=== PATIENT | male | born 1995 | race Two or more races ===

== ENCOUNTER → 2024-10-15 | Outpatient (BNVA) | payer MEDICAID, SELFPAY | END | disposition home or self-care (01) | PROVIDERS: PCP Nurse Practitioner Primary Care; Referring Provider Nurse Practitioner Primary Care; Visit Provider Nurse Practitioner Primary Care | DX: Z71.2 Person consulting for explanation of examination or test findings (principal); Z91.199 Patient's noncompliance with other medical treatment and regimen due to unspecified reason; Z79.4 Long term (current) use of insulin; E11.65 Type 2 diabetes mellitus with hyperglycemia | CPT/HCPCS: 99214 ==

== ENCOUNTER 2024-10-20 16:00 | Inpatient (IN) | payer MEDICAID, SELFPAY ==
--- NOTE | 2024-10-20 16:18 | EKG_ITS ---
[facility] Test Date: 2024-10-20 Pat Name: FIDEL WOLF Department: Room: - Gender: Male [employer]: : [id number] Requested By: Linn Luevano ([facility]) Krissy Order Number: [id number] Reading MD: Linn Luevano ([facility]) Krissy Measurements Intervals [place] Rate: 96 P: 51 CO: 214 QRS: -18 QRSD: 84 T: 48 QT: 401 QTc: 507 Interpretive Statements SINUS RHYTHM WITH FIRST DEGREE AV BLOCK SEPTAL MYOCARDIAL INFARCTION , OF INDETERMINATE AGE [40+ ms Q WAVE IN V1/V2] Compared to ECG 05/17/2023 11:00:03 First degree AV block now present Myocardial infarct finding now present /store/S0/[id number]/ecg/[id number].pdf
[2024-10-20 16:19] VITALS: PULSE 110; RESP 18; O2SAT 99; BMI 29.8
[2024-10-20 16:29] VITALS: BP 166/102; RESP 30; TEMP 36.8; O2SAT 98
[2024-10-20] MEDS: ONDANSETRON INJ 2 MG/ML INJ 2 ML 4 MG IV (16:42)
--- NOTE | 2024-10-20 16:42 | XR_ITS ---
Examination: PA lateral chest 2 views TECHNIQUE: Upright PA lateral chest 2 views Exam date and time: October 20, 2024 1658 hours Comparison May 15, 2023 INDICATIONS: Chest pain today. FINDINGS: Mild enlargement left ventricle Median sternotomy wires No pneumonia or pulmonary edema IMPRESSION: No active disease
[2024-10-20 17:03] LABS: Basophils % (Auto) 0 % (0-2.5); Eosinophils % (Auto) 0 % (0-10); Hematocrit 43.9 % (41.0-53.0); Immature Granulocytes % (Auto) 1 % (0-0); Lymphocytes # (Auto) 1.4 Thou/mm3 (1.0-4.8); Lymphocytes % (Auto) 10 % (10-50); Mean Corpuscular HGB Conc 34.2 g/dl (31.0-37.0); Mean Corpuscular Hemoglobin 24.8 pg (25.0-35.0); Mean Corpuscular Volume 73 fL (80-100); Monocytes # (Auto) 0.7 Thou/mm3 (0.0-0.8); Monocytes % (Auto) 5 % (0-12); Neutrophils # (Auto) 11.7 Thou/mm3 (1.8-7.7); Neutrophils % (Auto) 84 % (37-80); Nucleated Red Blood Cell % 0 /100 WBC (0); Platelet Count 368 Thou/mm3 (140-440); RDW Standard Deviation 37.4 fL (35.1-43.9); Red Blood Count 6.05 Miln/mm3 (4.50-5.90); White Blood Count 13.9 Thou/mm3 (3.8-10.6)
[2024-10-20 17:05] LABS: Beta Hydroxybutyrate 4.4 mmol/L (<0.6)
[2024-10-20] MEDS: SODIUM CHLORIDE 0.9% 1000 ML 1,000 ML 999 ML IV (17:11)
[2024-10-20 17:14] LABS: Prothrombin Time 10.6 Seconds (9.0-12.2)
[2024-10-20 17:32] LABS: Base Excess, Venous -4 (-3-3); O2 Saturation, Venous 75 % (96-97); PCO2, Venous 32 mmHg (36-56); PO2, Venous 41 mmHg (15-58); pH, Venous 7.39 (7.33-7.66)
--- NOTE | 2024-10-20 17:45 | EDNOTE_ITS ---
<Statement entered by Mehreen Deshpande MD - 10/20/24 21:12> As co-signing physician, I was present and available for consult prn. I concur with the plan and care as documented by the midlevel provider. ED Abdominal Pain RME/HPI General Chief Complaint: Abdominal Pain Stated complaint: ABD PAIN Time seen by provider: 10/20/24 16:18 Arrival date/time: 10/20/24 16:00 This is a 29-year-old male with a extensive medical history to include a heart transplant secondary to hypertrophic cardiomyopathy in [facility], (currently on antirejection medications), noncompliant [id number], dyslipidemia, coronary artery disease on Plavix, hypertension, presents to the emergency department complaint of nausea and vomiting that began yesterday. Also reports upper epigastric abdominal pain worsens with vomiting. Also reported some mild chest pain during his episode of vomiting. Admits to recently has stopped using his regular insulin and long-acting, was only using oral hypoglycemics to control his diabetes. Reports his A1c is high at approximately 12%. Denies fever, chills, no urinary symptoms. Source: patient Related Data Home Medications ?Medication ?Instructions ?Recorded ?Confirmed clopidogrel 75 mg tablet mg PO QDAY 01/20/24 10/15/24 fenofibrate nanocrystallized 145 mg PO 01/20/24 10/15/24 mg tablet pantoprazole 40 mg tablet,delayed mg PO QDAY 01/20/24 10/15/24 release metformin 500 mg tablet 1,000 mg PO BID 08/13/24 10/15/24 amlodipine 5 mg tablet 5 mg PO QDAY 10/15/24 10/15/24 empagliflozin 25 mg tablet 25 mg PO QAM 10/15/24 10/15/24 (Jardiance) escitalopram oxalate 10 mg tablet 10 mg PO QDAY 10/15/24 10/15/24 insulin glargine 100 unit/mL (3 45 unit subcut BID 10/15/24 mL) subcutaneous pen sirolimus 0.5 mg tablet 1 mg PO 10/15/24 10/15/24 tacrolimus 0.5 mg capsule, 2.5 mg PO QDAY 10/15/24 10/15/24 immediate-release Previous Rx's ?Medication ?Instructions ?Recorded aspirin 81 mg tablet,delayed 81 mg PO QDAY #90 tabs 01/20/24 release cetirizine 10 mg capsule (All Day 10 mg PO QDAY #90 caps 01/20/24 Allergy (cetirizine)) famotidine 20 mg tablet 20 mg PO QDAY #90 tabs 01/20/24 insulin regular human 100 unit/mL 1 sliding scale dose subcut 08/13/24 (3 mL) subcutaneous pen USEASDIRECTD #15 mL pen needle, diabetic 31 gauge x #1,200 ea 08/13/24/ (Comfort EZ Pen [place]) flash glucose scanning reader #1 ea 08/20/24 (FreeStyle Ni 2 [place]) flash glucose sensor (FreeStyle #1 ea 08/20/24 Ni 2 Sensor kit) enalapril maleate 20 mg tablet 20 mg PO BID #180 tabs 10/15/24 fluconazole 200 mg tablet 200 mg PO QDAY #90 tabs 10/15/24 rosuvastatin 10 mg tablet 10 mg PO QDAY #90 tabs 10/15/24 semaglutide 2 mg/dose (8 mg/3 mL) 2 mg (0.75 mL) subcut QWEEK #3 mL 10/15/24 subcutaneous pen injector (Ozempic) Allergies Allergy/AdvReac Type Severity Reaction Status Date / Time No Known Allergies Allergy Verified 10/15/24 11:20 Review of Systems Review of Systems Systems Reviewed: All systems reviewed, normal except as documented Narrative Review of Systems: Gen: No fever, no chills, no weight loss EYES: No discharge, no visual changes, no pain HEENT: No ear pain, no congestion, no sore throat PULM: No shortness of breath, no cough, no congestion CV: No chest pain, no dyspnea on exertion, no palpitations GI: + nausea, + vomiting, no diarrhea, +abd pain, no constipation : No frequency, no urgency,? no dysuria Musc/skel: No joint pain, no back pain Skin: No rash? ED Exam Narrative Physical exam: General: Chronically ill-appearing 29-year-old Sittiing in Exam table in no acute distress, answering questions appropriately HENT: normocephalic, atraumatic, EOMI, PERRLA, moist mucous membranes Chest: chest wall is nontender Cardiac: regular rate and rhythm, normal S1 and S2, no murmurs, rubs, or gallops, capillary refill ?2 seconds Pulmonary: clear to auscultation bilaterally, no wheezing, crackles, or rhonchi Abdominal: active bowel sounds, soft, nontender, nondistended Neuro: A&OX3, CN II-XII intact, sensation grossly intact bilaterally in UE and LE. Skin: no rashes, no ecchymosis Ext: no lower extremity edema Course Quality Measures none Orders Category Date Time Status Bedside Blood Glucose ACHS Care 10/20/24 19:30 Active COVID-19 Screening Questionnaire NOW Care 10/20/24 18:17 Active Decision to Admit X1 Care 10/20/24 18:16 Completed EKG (ED ONLY) *Do not use* NOW Care 10/20/24 16:18 Completed Insert IV NOW Care 10/20/24 16:42 Active NPO STAT Care 10/20/24 16:18 Active EKG (ED Only) Stat Exams 10/20/24 16:18 Draft XR chest 2V Stat Exams 10/20/24 16:42 Completed BMP [Basic Metabolic Panel] Stat Lab 10/20/24 18:58 Completed Beta Hydroxybutyrate Stat Lab 10/20/24 16:39 Completed CBC Stat Lab 10/20/24 16:39 Completed Comprehensive Metabolic Panel Stat Lab 10/20/24 16:39 Completed Lipase Stat Lab 10/20/24 16:39 Completed Magnesium Stat Lab 10/20/24 16:39 Completed Prothrombin Time with INR Stat Lab 10/20/24 16:39 Completed Troponin I Stat Lab 10/20/24 16:39 Completed Urinalysis Stat Lab 10/20/24 16:18 Ordered Venous Blood Gas Stat Lab 10/20/24 17:21 Completed Dextrose 50% Syr [D50w Syringe Abboject] Med 10/20/24 19:30 Active 25 ml IV Q15MIN PRN Dextrose 50% Syr [D50w Syringe Abboject] Med 10/20/24 19:30 Active 50 ml IV Q15MIN PRN Glucagon Inj Med 10/20/24 19:30 Active 1 mg IM Q15MIN PRN Insulin Glargine Inj [Lantus Inj] Med 10/20/24 21:00 Active 35 unit SC BID Insulin Reg 100 Units/100 ml [Myxredlin] Med 10/20/24 18:13 Discontinued 100 unit in 100 ml IV 0.1 unit/kg/hr Insulin Regular Med 10/20/24 18:25 Discontinued 10 unit IV X1 ONE Insulin Regular Med 10/20/24 21:00 Active See Protocol SC ACHS Ondansetron Inj [Zofran Inj] Med 10/20/24 16:18 Discontinued 4 mg IV X1 ONE Sodium Chloride 0.9% 1000 ml [Ns] 1,000 ml Med 10/20/24 17:11 Discontinued IV 80 mls/hr Sodium Chloride 0.9% 1000 ml [Ns] 1,000 ml Med 10/20/24 16:42 Discontinued IV 999 mls/hr Vital Signs Vital signs: Vital Signs Temperature 98.2 F 10/20/24 16:29 Respiratory Rate 30 H 10/20/24 16:29 Blood Pressure 166/102 H 10/20/24 16:29 Pulse Oximetry (%) 98 10/20/24 16:29 Abdominal Pain MDM MDM Narrative MDM Narrative:: This patient presents with hyperglycemia and symptoms concerning for DKA. Differential diagnosis includes other metabolic causes of hyperglycemia such as HHS, worsened diabetes or medication noncompliance. On assessment patient's abdominal pain is benign patient reported pain only when vomiting. After reviewing the patient's medical history he is noncompliant has been off his insulin and other medications. Most likely etiology DKA at this time is Plan to treat the hyperglycemia as below while simultaneously evaluating and treating potential underlying etiologies. Plan: POC glucose monitoring blood gas, UA, serum ketones, CBC, LFTs / lipase, IVF, IV Insulin therapy, serial reassessment, admission for treatment for DKA. Reviewed patient's labs, close 446, no acute renal failure, carbon dioxide 18.2, anion gap 21, beta 4.4, MILD DKA 2l of NS given, 10units of Regular insulin IV. Patient has no more nausea or vomiting and no abdominal pain at this time. Will repeat a BNP in 2 hours (1830). Case discussed with Dr. Carlos Alberto fine hospitalist will admit patient hyperglycemia mild DKA. Patient data External records reviewed:: [facility] previous records Clinical information provided by:: patient Social determinants that could affect healthcare access:: none Patient has the following chronic illnesses:: Hyperlipidemia, hypertension, heart transplant on antirejection medications, noncompliant diabetic How is presenting disease/condition affected by chronic disease/condition?: exacerbated by Evaluation data The following diagnostics were reviewed and interpreted by me:: lab results, radiology exam(s) and EKG tracing(s) Lab and/or radiology exams considered but not ordered:: No Interpretation Summary: Examination: PA lateral chest 2 views TECHNIQUE: Upright PA lateral chest 2 views Exam date and time: October 20, 2024 1658 hours Comparison May 15, 2023 INDICATIONS: Chest pain today. FINDINGS: Mild enlargement left ventricle Median sternotomy wires No pneumonia or pulmonary edema IMPRESSION: No active disease Medications / Prescriptions Medications or Prescriptions considered but not ordered:: No Medication administrations:: Medication Administration History Amlodipine Besylate (Amlodipine Besylate 5 Mg Tablet) 5 mg PO QDAY [facility] Stop: 11/20/24 08:59 Aspirin (Aspirin Ec 81 Mg Tabec) 81 mg PO QDAY [facility] Stop: 11/20/24 08:59 Atorvastatin Calcium (Atorvastatin Calcium 20 Mg Tablet) 40 mg PO HS [facility] Stop: 11/19/24 20:59 Clopidogrel Bisulfate (Clopidogrel Bisulfate 75 Mg Tablet) 75 mg PO QDAY [facility] Stop: 11/20/24 08:59 Dextrose (Dextrose 50%-Water Inj 50 Ml Syringe) 25 ml IV Q15MIN PRN PRN Reason: BG 50-70 responsive npo pt Stop: 11/19/24 19:29 Dextrose (Dextrose 50%-Water Inj 50 Ml Syringe) 50 ml IV Q15MIN PRN PRN Reason: BG <50 OR BG <70 & pt unresponsive Stop: 11/19/24 19:29 Enalapril Maleate (Enalapril Maleate 10 Mg Tablet) 20 mg PO BID [facility] Stop: 11/19/24 20:59 Fenofibrate (Fenofibrate 145 Mg Tablet (Non-Formulary)) 145 mg PO QDAY [facility] Stop: 11/20/24 08:59 Fluconazole (Fluconazole 100 Mg Tablet) 200 mg PO QDAY [facility] Stop: 10/28/24 08:59 Glucagon (Glucagon Inj 1 Mg Vial) 1 mg IM Q15MIN PRN PRN Reason: BG <70, and no IV access Heparin Sodium (Porcine) (Heparin Sod Inj 5000 Unit/Ml Vial) 5,000 unit SC Q8HR [facility] Stop: 11/03/24 21:59 Sodium Chloride (Ns) 1,000 mls @ 100 mls/hr IV .Q10H [facility] Stop: 11/19/24 19:30 Last Admin: 10/20/24 19:46 Dose: 100 mls/hr Documented By: SF Insulin Glargine (Insulin Glargine (Lantus) 5 Unit/0.05 Ml (Per 5 Units)) 35 unit SC BID [facility] Stop: 11/19/24 20:59 Insulin Human Regular (Insulin Hum Regular 1 Unit/0.01 Ml (Per Unit)) 0 unit SC ACHS [facility]; Protocol Stop: 11/19/24 20:59 Ondansetron HCl (Ondansetron Inj 2 Mg/Ml Inj 2 Ml) 4 mg IV Q6H PRN; Protocol PRN Reason: NAUSEA OR VOMITING Stop: 11/19/24 19:30 Pantoprazole Sodium (Pantoprazole 40 Mg Tablet) 40 mg PO QDAY [facility] Stop: 11/20/24 08:59 Discontinued Medications Enalapril Maleate (Enalapril Maleate 10 Mg Tablet) 10 mg PO BID [facility] Stop: 11/19/24 20:59 Sodium Chloride (Ns) 1,000 mls @ 999 mls/hr IV .Q1H1M ONE Stop: 10/20/24 17:42 Last Infusion: 10/20/24 18:23 Dose: Infused Documented By: Admin: 10/20/24 17:11 Dose: 999 mls/hr Documented By: AM Sodium Chloride (Ns) 1,000 mls @ 80 mls/hr IV .[id number] ONE Stop: 10/21/24 05:40 Last Infusion: 10/20/24 19:40 Dose: 0 mls/hr Documented By: Admin: 10/20/24 18:47 Dose: 80 mls/hr Documented By: AM Insulin Human Regular (Myxredlin) 100 unit in 100 mls @ 9.979 mls/hr IV .Q10H2M PRN; Protocol PRN Reason: PER PROTOCOL Stop: 11/19/24 18:12 Insulin Human Regular (Insulin Hum Regular 1 Unit/0.01 Ml (Per Unit)) 10 unit IV X1 ONE Stop: 10/20/24 18:26 Last Admin: 10/20/24 18:46 Dose: 10 unit Documented By: AM Co-signed By: VU Ondansetron HCl (Ondansetron Inj 2 Mg/Ml Inj 2 Ml) 4 mg IV X1 ONE; Protocol Stop: 10/20/24 16:19 Last Admin: 12/11/24 16:42 Dose: 4 mg Documented By: AM All medications administered and effective Consultations Consultation(s) initiated? (list below): No Diagnosis Differential diagnosis abdominal pain: abdominal pain, gastroenteritis, pancreatitis and other (Diabetic ketoacidosis) Most likely diagnosis given after review of the tests above:: Diabetic ketoacidosis Admission Indicated Admission indicated?: indicated Admission Request Was there a request for admission?: Yes Admission Attestation Admission request attestation: Case discussed with Dr. Carcamo night hospitalist will admit patient hyperglycemia mild DKA. Disposition Plan Disposition Plan: Admit Discharge Plan Plan Patient Disposition: Admit Acute Care w/in Hospital Patient condition on transfer: Stable Problem List Clinical Impression: Hyperglycemia, Uncontrolled diabetes mellitus, Nausea & vomiting PA/YOUTH COORDINATOR Supervising Physician PA/YOUTH COORDINATOR Supervising Physician: Dr deshpande
[2024-10-20 17:49] LABS: Alanine Aminotransferase 23 U/L (10-49); Albumin, Serum 4.8 gm/dL (3.5-5.0); Albumin/Globulin Ratio 1.3 (1.2-2.2); Alkaline Phosphatase 75 U/L (46-116); Anion Gap 21 (7-16); Aspartate Amino Transferase 35 U/L (0-34); BUN/Creatinine Ratio 12 Ratio (12-20); Bilirubin,Total 0.8 mg/dL (0.3-1.2); Blood Urea Nitrogen 22 mg/dL (9-23); Calcium 9.8 mg/dL (8.3-10.6); Calcium (Corrected) 9.8 mg/dL (8.5-10.1); Carbon Dioxide 18.2 mMol/L (20.0-31.0); Chloride 94 mMol/L (98-107); Creatinine (Component) 1.8 mg/dL (0.6-1.3); Estimated Creatinine Clearance 73.4 mL/min (>60); Globulin 3.7 gm/dL (2.3-3.5); Lipase 34 U/L (12-53); Magnesium 1.7 mg/dL (1.6-2.6); Osmolality,Calculated 288 (275-295); Sodium 133 mMol/L (136-145); Total Protein 8.5 gm/dL (5.7-8.2); Troponin I < 0.002 ng/mL (0.0-0.045); eGFR 51 See Note
[2024-10-20 17:53] LABS: Glucose 443 mg/dL (74-106)
[2024-10-20 17:59] VITALS: BP 133/86; PULSE 88; RESP 13; TEMP 36.9; O2SAT 97
[2024-10-20] MEDS: INSULIN HUM REGULAR 1 UNIT/0.01 ML (PER UNIT) 10 UNIT IV (18:46)
[2024-10-20] MEDS: SODIUM CHLORIDE 0.9% 1000 ML 1,000 ML 80 ML IV (18:47)
[2024-10-20 19:05] VITALS: BP 142/89; PULSE 96; RESP 18; TEMP 37.2; O2SAT 95
--- NOTE | 2024-10-20 19:23 | EVENTNT_ITS ---
Documentation for date of: 10/20/24 Event Note Event Note: The patient is a 29-year-old male with significant past medical history of IDDM, heart transplant in 2000 at age 6 on immunosuppressant therapy, noncompliant with medications who presented with nausea, vomiting and abdominal pain for past 1 day was found to have DKA. I discussed the case with my attending Dr. Gandhi and she reported that the patient's care can be taken on floors as beta- hydroxybutyrate level was only 4.4, bicarb greater than 18, and pH of 7.39, with blood sugar 443. Dr. Gandhi initially recommended requesting ED physician to touch base with hospitalist team if they would be comfortable on taking this p atient with subcu insulin. When I went to see the patient in the ED, the ED physician reported me that she has already had conversation with Dr. Gandhi and she would let the night attending physician know about it. However, Dr. Gandhi again texted me stating that it is okay for the ICU team to admit the patient and downgrade early to the hospitalist team. I let the night ICU team know about the pending admission in ED. The patient's management plan was discussed with my attending physician MD Addi Daley MD, PGY2
[2024-10-20 19:26] LABS: Anion Gap 14 (7-16); BUN/Creatinine Ratio 12 Ratio (12-20); Blood Urea Nitrogen 19 mg/dL (9-23); Calcium 8.9 mg/dL (8.3-10.6); Carbon Dioxide 23.2 mMol/L (20.0-31.0); Chloride 96 mMol/L (98-107); Creatinine (Component) 1.6 mg/dL (0.6-1.3); Estimated Creatinine Clearance 82.6 mL/min (>60); Glucose 305 mg/dL (74-106); Osmolality,Calculated 279 (275-295); Potassium 4.1 mMol/L (3.4-5.1); Sodium 133 mMol/L (136-145); eGFR 59 See Note
[2024-10-20] MEDS: SODIUM CHLORIDE 0.9% 1000 ML 1,000 ML 100 ML IV (19:46)
--- NOTE | 2024-10-20 20:06 | PD.RESHP ---
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 Patient states that last night he started developing some dry heaving episode and some mild abdominal pain which has progressively worsened in severity; he rates the pain at its peak at about an 8 out of 10. Patient also has episode of vomiting without any blood but feels as though he is dehydrated. Of note, patient has been admitted in the past for diabetic ketoacidosis and is aware of diagnosis. Patient is on long-acting insulin 35 units in the morning and at night, he also takes sliding scale premeals and is also on Ozempic. Patient has history of noncompliance in the past per chart checking previous notes; however, on examination and interviewing he seems pleasant. And monitors his blood glucose in the mornings; he states that his blood sugars are usually in the 250-280s (He has a freestyle gita 2.). Patient had a heart transplant at [facility] when he was 6 years old for cardiomyopathy; moreover, many of his cousins and family members have history of heart transplant secondary to some genetic condition which she did not specify. Patient follows up with [facility] every 3 months for tacrolimus and sirolimus levels with adjustments of medications. Medical history: As listed above Surgical history: Heart transplant at age 6 Allergies: NKDA Medications: Pending med rec Family history: Both patient's parents have type 2 diabetes, patient has 5 other cousins with cardiomyopathy and 2 with heart transplant Social history: Patient is from [place], lives with his parents does not work takes care of his parents; denies alcohol, tobacco or illicit drug use ROS: All 12 systems assessed and the patient denies unless otherwise stated in HPI DD, patient presented hypertensive 166/102, heart rate 88, respiratory 30, afebrile satting 98 on room air. Pertinent lab findings included patient being in diabetic ketoacidosis with an anion gap of 21 and beta hydroxybutyrate levels of 4.4. Troponin was within normal limits, AST was mildly elevated at 35, creatinine 1.6, BUN 19, potassium 4.1, sodium 133. VBG showed pH 7.39, pCO2 32. EKG showed sinus rhythm with possible first-degree AV block and chest x-ray was negative for any acute process. Patient will be admitted to hospitalist team for DKA management after anion gap closed on recheck with 10 units of insulin regular being given; patient will be started on diet and home dose of long-acting insulin. Exam Vital Signs Temp Pulse Resp BP Pulse Ox O2 Del Method 98.9 F 96 18 142/89 H 95 Room Air 10/20/24 19:05 10/20/24 19:05 10/20/24 19:05 10/20/24 19:05 10/20/24 19:05 10/20/24 19:05 Narrative Exam Physical Exam: GENERAL: Awake, answering questions appropriately, appears stated age. HEENT: NC/AT. Moist mucosa. PERRLA/EOMI. CARDIO: Heart RRR, no obvious murmurs, no JVD. PULM: No coughing or visible SOB. Lungs CTA B/L. GI: Abdomen soft, NT/ND, +BS. SKIN/MSK/EXT: No wounds/discoloration/rashes/edema/amputations. +Pedal pulses present B/L. NEURO: Oriented x3, photographer's assistant strength 5/5, Moves extremities x4. Results: Labs 10/20/24 16:39 10/20/24 18:58 Labs: Short CBC 10/20/24 Range/Units 16:39 WBC 13.9 H (3.8-10.6) Thou/mm3 Hgb 15.0 (13.5-16.0) g/dL Hct 43.9 (41.0-53.0) % Plt Count 368 (140-440) Thou/mm3 [facility] 10/20/24 10/20/24 16:39 18:58 Sodium 133 L 133 L Potassium 4.0 4.1 Chloride 94 L 96 L Carbon Dioxide 18.2 L 23.2 BUN 22 19 Creatinine 1.8 H 1.6 H Glucose 443 H* 305 H D Calcium 9.8 8.9 Cardiac Enzymes 10/20/24 Range/Units 16:39 Troponin I < 0.002 (0.0-0.045) ng/mL Liver Function 10/20/24 Range/Units 16:39 Total Bilirubin 0.8 (0.3-1.2) mg/dL AST 35 H (0-34) U/L ALT 23 (10-49) U/L Alkaline Phosphatase 75 (46-116) U/L Albumin 4.8 (3.5-5.0) gm/dL ABG Interpretation ABG results: 10/20/24 17:21 VBG pH 7.39 VBG pCO2 32 L VBG pO2 41 VBG Base Excess -4 L Quality Measures Quality Measures none Medications Home Medications and Allergies Home Medications ?Medication ?Instructions ?Recorded ?Confirmed ?Type clopidogrel 75 mg tablet mg PO QDAY 01/20/24 10/15/24 History fenofibrate nanocrystallized 145 mg PO 01/20/24 10/15/24 History mg tablet pantoprazole 40 mg tablet,delayed mg PO QDAY 01/20/24 10/15/24 History release metformin 500 mg tablet 1,000 mg PO BID 08/13/24 10/15/24 History amlodipine 5 mg tablet 5 mg PO QDAY 10/15/24 10/15/24 History empagliflozin 25 mg tablet 25 mg PO QAM 10/15/24 10/15/24 History (Jardiance) escitalopram oxalate 10 mg tablet 10 mg PO QDAY 10/15/24 10/15/24 History insulin glargine 100 unit/mL (3 45 unit subcut BID 10/15/24 History mL) subcutaneous pen sirolimus 0.5 mg tablet 1 mg PO 10/15/24 10/15/24 History tacrolimus 0.5 mg capsule, 2.5 mg PO QDAY 10/15/24 10/15/24 History immediate-release Allergies Allergy/AdvReac Type Severity Reaction Status Date / Time No Known Allergies Allergy Verified 10/15/24 11:20 Visit Medications Amlodipine Besylate (Amlodipine Besylate 5 Mg Tablet) 5 mg PO QDAY DYLON Stop: 11/20/24 08:59 Aspirin (Aspirin Ec 81 Mg Tabec) 81 mg PO QDAY DYLON Stop: 11/20/24 08:59 Atorvastatin Calcium (Atorvastatin Calcium 20 Mg Tablet) 40 mg PO HS DYLON Stop: 11/19/24 20:59 Clopidogrel Bisulfate (Clopidogrel Bisulfate 75 Mg Tablet) 75 mg PO QDAY DYLON Stop: 11/20/24 08:59 Dextrose (Dextrose 50%-Water Inj 50 Ml Syringe) 25 ml IV Q15MIN PRN PRN Reason: BG 50-70 responsive npo pt Stop: 11/19/24 19:29 Dextrose (Dextrose 50%-Water Inj 50 Ml Syringe) 50 ml IV Q15MIN PRN PRN Reason: BG <50 OR BG <70 & pt unresponsive Stop: 11/19/24 19:29 Enalapril Maleate (Enalapril Maleate 10 Mg Tablet) 20 mg PO BID [facility] Stop: 11/19/24 20:59 Fenofibrate (Fenofibrate 145 Mg Tablet (Non-Formulary)) 145 mg PO QDAY [facility] Stop: 11/20/24 08:59 Fluconazole (Fluconazole 100 Mg Tablet) 200 mg PO QDAY [facility] Stop: 10/28/24 08:59 Glucagon (Glucagon Inj 1 Mg Vial) 1 mg IM Q15MIN PRN PRN Reason: BG <70, and no IV access Heparin Sodium (Porcine) (Heparin Sod Inj 5000 Unit/Ml Vial) 5,000 unit SC Q8HR [facility] Stop: 11/03/24 21:59 Sodium Chloride (Ns) 1,000 mls @ 100 mls/hr IV .Q10H [facility]YLON Stop: 11/19/24 19:30 Last Admin: 10/20/24 19:46 Dose: 100 mls/hr Insulin Glargine (Insulin Glargine (Lantus) 5 Unit/0.05 Ml (Per 5 Units)) 35 unit SC BID [facility] Stop: 11/19/24 20:59 Insulin Human Regular (Insulin Hum Regular 1 Unit/0.01 Ml (Per Unit)) 0 unit SC ACHS [facility]; Protocol Stop: 11/19/24 20:59 Ondansetron HCl (Ondansetron Inj 2 Mg/Ml Inj 2 Ml) 4 mg IV Q6H PRN; Protocol PRN Reason: NAUSEA OR VOMITING Stop: 11/19/24 19:30 Pantoprazole Sodium (Pantoprazole 40 Mg Tablet) 40 mg PO QDAY [facility] Stop: 11/20/24 08:59 Patient Own Medication (Patient's Own Controlled Med 1 Ea) 0.5 ea PO BID [facility] Stop: 11/19/24 20:59 Patient Own Medication (Patient's Own Controlled Med 1 Ea) 1.5 ea PO QDAY [facility] Stop: 11/20/24 08:59 Patient Own Medication (Patient's Own Controlled Med 1 Ea) 1 ea PO HS [facility] Stop: 11/19/24 20:59 Discontinued Medications Enalapril Maleate (Enalapril Maleate 10 Mg Tablet) 10 mg PO BID [facility] Stop: 11/19/24 20:59 Sodium Chloride (Ns) 1,000 mls @ 999 mls/hr IV .Q1H1M ONE Stop: 10/20/24 17:42 Last Infusion: 10/20/24 18:23 Dose: Infused Sodium Chloride (Ns) 1,000 mls @ 80 mls/hr IV .[id number] ONE Stop: 10/21/24 05:40 Last Infusion: 10/20/24 19:40 Dose: 0 mls/hr Insulin Human Regular (Myxredlin) 100 unit in 100 mls @ 9.979 mls/hr IV .Q10H2M PRN; Protocol PRN Reason: PER PROTOCOL Stop: 11/19/24 18:12 Insulin Human Regular (Insulin Hum Regular 1 Unit/0.01 Ml (Per Unit)) 10 unit IV X1 ONE Stop: 10/20/24 18:26 Last Admin: 10/20/24 18:46 Dose: 10 unit Ondansetron HCl (Ondansetron Inj 2 Mg/Ml Inj 2 Ml) 4 mg IV X1 ONE; Protocol Stop: 10/20/24 16:19 Last Admin: 10/20/24 16:42 Dose: 4 mg Assessment & Plan Plan 29-year-old male with past medical history of 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 #Diabetic ketoacidosis, closed anion gap #Insulin-dependent type 2 diabetes #Electrolyte abnormalities #Leukocytosis A1c of 11.6 Patient takes 35 units Lantus twice daily, sliding scale insulin premeals and is on Ozempic Per chart checking patient is apparently noncompliant on medications and skips some insulin dosages Presented with episode of dry heaving and abdominal pain which started on 10/19 and progressively worsened In the ED, patient was found to be in DKA with an anion gap of 21 and beta hydroxybutyrate of 4.4, glucose of 443 VBG shows: pH 7.39, pCO2 32 Patient was given x 1 dose of 10 units insulin regular with anion gap closing (14). And glucose of 305 Leukocytosis likely secondary to acutely ill status vs. possible gastroenteritis (patient had abdominal pain and vomiting - could be secondary to DKA vs. primary infection) Patient does not appear septic and does not meet any sepsis criteria Plan: 100 cc/h of normal saline running Carb consistent diet Restarted patient's home Lantus dose, 35 units twice daily Sliding scale insulin Will monitor with morning labs Patient requires extensive counseling on medication compliance Possible need for insulin pump versus upgrade to freestyle gita 3 Dietitian consult #History of heart transplantation in 2000 #Cardiomyopathy #Hypertension #Hyperlipidemia Patient follows up with [facility] for heart transplantation which was done when he was 6 years old for cardiomyopathy Patient has extensive family history of genetic heart disease with 2 cousins with heart transplantation, and 3 others with cardiomyopathy Patient is on tacrolimus 0.5 mg 3 tabs in the morning and 2 tabs in the evening AND sirolimus 0.5 mg 1 tab in the morning and 1 tab in the evening Patient is also on Plavix, aspirin, fenofibrate, rosuvastatin, amlodipine, enalapril and fluconazole as prescribed by his transplant cardiology team in [facility] Plan: Continue home medications as stated above #Diabetic nephropathy Patient is apparently being worked up for proteinuria in the urine secondary to likely diabetic nephropathy Patient has a renal ultrasound which showed some parenchymal scarring Plan: Needs better glycemic control; diabetes education Would benefit from a nephrology follow-up outpatient Hospital Management: Lines: PIV Bowel: Senna as needed Diet: Carb consistent GI prophylaxis: Protonix DVT prophylaxis: Heparin subq Dispo: Monitoring for DKA; gap is closed Code: Full Patient seen and assessed with attending Dr. Carcamo and senior resident Dr. Roro Buenrostro, PGY-1 Attending Provider Attestation/Addendum Pt was evaluated and plan formulated together with the housestaff team. I have reviewed the residents note above and agree with most of its content. Please refer to the residents note for additional details. Chief Complaint Abdominal pain, nausea, and vomiting. History of Present Illness This is a 29-year-old male with an extensive medical history significant for a heart transplant secondary to hypertrophic cardiomyopathy in 2000 at [facility], insulin-dependent diabetes mellitus diagnosed in 2012 (with recent noncompliance), hypertension, dyslipidemia, and coronary artery disease on Plavix. The patient presented to the emergency department with complaints of persistent nausea, dry heaving, and abdominal pain located in the upper epigastric region, which began the night before presentation. He reports the abdominal pain worsens with vomiting. Additionally, he experienced mild chest discomfort during vomiting episodes but denies any fever, chills, cough, or urinary symptoms. The patient admits to inconsistent use of his insulin, only taking oral hypoglycemics recently. He reports a history of poor glycemic control, with a last known A1c of approximately 12%. He has had a prior episode of diabetic ketoacidosis about a year ago. He denies diarrhea or recent changes in appetite but acknowledges mild thirst. He is compliant with his other medications, including antirejection medications for his heart transplant. In the emergency department, vital signs were notable for blood pressure at 166/102, heart rate of 98, respiratory rate of 30, and a temperature of 98.2?F. Labs showed significant hyperglycemia (glucose 443 mg/dL), elevated anion gap metabolic acidosis (anion gap 21, bicarbonate 18.2), mild acute kidney injury (creatinine 1.8), and elevated ketones (4.4 mmol/L). A chest X-ray showed no active disease. The patient received IV fluids and 10 units of IV insulin, leading to resolution of the anion gap and normalization of bicarbonate levels. Patient was admitted for further management. Past Medical History Heart transplant (2000, secondary to hypertrophic cardiomyopathy) Insulin-dependent diabetes mellitus (diagnosed in 2012) Coronary artery disease Hypertension Dyslipidemia Surgical History Heart transplant (2000) Medications Antirejection medications Oral hypoglycemics Intermittent insulin use (noncompliant) Allergies No known drug allergies. Social History Denies smoking or alcohol use. Lives with family. Family History Noncontributory. Physical Exam Vital Signs: Temp: 98.2?F, HR: 98 bpm, BP: 166/102, RR: 30, O2 Sat: 98% on room air. General: Alert and oriented, no acute distress. Cardiovascular: Regular rate and rhythm, no murmurs, rubs, or gallops. Respiratory: Clear to auscultation bilaterally, no wheezing or crackles. Abdomen: Non-tender, no rebound or guarding. Extremities: No edema. Neurological: Alert and oriented, no focal deficits. Laboratory Findings WBC: 13.9 Hemoglobin: 15 g/dL Platelet: 368 x 10?/?L Sodium: 133 mmol/L Potassium: 4.1 mmol/L Carbon dioxide: 18.2 mmol/L Anion gap: 21 Creatinine: 1.8 mg/dL Glucose: 443 mg/dL Ketones: 4.4 mmol/L Imaging Chest X-ray: No active disease. Assessment and Plan Mild diabetic ketoacidosis (DKA): Resolved after IV fluids and 10 units of IV insulin. Continue monitoring blood glucose levels and ensure appropriate insulin therapy. Educate on the importance of adherence to insulin regimens. Type 2 diabetes mellitus with poor control (A1c ~12%): Optimize glycemic control with basal-bolus insulin and diabetes education. Hypertension: Blood pressure elevated at presentation. Continue current antihypertensive therapy and monitor. History of heart transplant: Ensure compliance with antirejection medications and monitor for complications. Acute kidney injury: Likely secondary to dehydration from vomiting. Monitor renal function. Hyperlipidemia and coronary artery disease: Continue home meds.
[2024-10-20] MEDS: INSULIN HUM REGULAR 1 UNIT/0.01 ML (PER UNIT) SC (20:47)
[2024-10-20] MEDS: ATORVASTATIN CALCIUM 20 MG TABLET 40 MG PO (20:47)
[2024-10-20] MEDS: INSULIN GLARGINE (Lantus) 5 UNIT/0.05 ML (PER 5 UNITS) 35 UNIT SC (20:47)
[2024-10-20] MEDS: TACROLIMUS 0.5 MG CAPSULE (NON-FORMULARY) 1 MG PO (20:48)
[2024-10-20] MEDS: SIROLIMUS 0.5 MG PO (20:50)
[2024-10-20 21:23] VITALS: BMI 24.0
[2024-10-20] MEDS: SODIUM CHLORIDE 0.9% 1000 ML 1,000 ML 125 ML IV (21:39)
[2024-10-20 21:48] VITALS: BP 140/98; PULSE 102; RESP 19; TEMP 37.2; O2SAT 98
[2024-10-20] MEDS: HEPARIN SOD INJ 5000 UNIT/ML VIAL SC (21:56)
[2024-10-21] VITALS (7 sets, daily range): BP systolic 122–159; BP diastolic 76–112; PULSE 80–103; RESP 17–20; TEMP 35.9–36.9; O2SAT 95–99; BMI 24.0
[2024-10-21 02:15] LABS: Collection Type, Urine Clean Catch; RBC,Urine 0 /hpf (0-3); Squamous Epithelial Cell,Urine 0 /hpf (0-5); WBC,Urine 0 /hpf (0-5)
[2024-10-21 02:38] LABS: Bilirubin,Urine Negative (Negative); Blood,Urine Negative (Negative); Clarity,Urine Clear (Clear/Hazy); Color,Urine Lt-Yellow (Lt Yel-Yel); Glucose, Urine 4+ (Negative); Ketones,Urine 1+ (Negative); Leukocyte Esterase,Urine Negative (Negative); Nitrite,Urine Negative (Negative); PH,Urine 5.5 (5.0-7.0); Protein,Urine 1+ (Neg - Trace); Specific Gravity,Urine 1.018 (1.001-1.035); Urobilinogen,Urine Negative mg/dL (0.0-1.0)
[2024-10-21] MEDS: HEPARIN SOD INJ 5000 UNIT/ML VIAL SC ×3 (05:02→21:46)
[2024-10-21 05:35] LABS: Basophils % (Auto) 0 % (0-2.5); Eosinophils % (Auto) 0 % (0-10); Hematocrit 39.1 % (41.0-53.0); Hemoglobin 13.2 g/dL (13.5-16.0); Immature Granulocytes % (Auto) 1 % (0-0); Immature Granulocytes Auto 0.05 Thou/mm3 (0.00-0.00); Lymphocytes # (Auto) 2.9 Thou/mm3 (1.0-4.8); Lymphocytes % (Auto) 31 % (10-50); Mean Corpuscular HGB Conc 33.8 g/dl (31.0-37.0); Mean Corpuscular Hemoglobin 24.8 pg (25.0-35.0); Mean Corpuscular Volume 73 fL (80-100); Monocytes # (Auto) 0.7 Thou/mm3 (0.0-0.8); Monocytes % (Auto) 7 % (0-12); Neutrophils # (Auto) 5.5 Thou/mm3 (1.8-7.7); Neutrophils % (Auto) 60 % (37-80); Nucleated Red Blood Cell % 0 /100 WBC (0); Platelet Count 309 Thou/mm3 (140-440); RDW Standard Deviation 38.4 fL (35.1-43.9); Red Blood Count 5.33 Miln/mm3 (4.50-5.90); White Blood Count 9.2 Thou/mm3 (3.8-10.6)
[2024-10-21 06:14] LABS: Anion Gap 8 (7-16); BUN/Creatinine Ratio 10 Ratio (12-20); Blood Urea Nitrogen 14 mg/dL (9-23); Calcium 9.2 mg/dL (8.3-10.6); Carbon Dioxide 28.5 mMol/L (20.0-31.0); Chloride 100 mMol/L (98-107); Creatinine (Component) 1.4 mg/dL (0.6-1.3); Estimated Creatinine Clearance 84.7 mL/min (>60); Glucose 143 mg/dL (74-106); Osmolality,Calculated 274 (275-295); Potassium 3.8 mMol/L (3.4-5.1); Sodium 136 mMol/L (136-145); eGFR > 60 See Note
[2024-10-21] MEDS: INSULIN HUM REGULAR 1 UNIT/0.01 ML (PER UNIT) SC ×3 (08:29→21:44)
[2024-10-21] MEDS: SIROLIMUS 0.5 MG PO ×2 (08:39→21:37)
[2024-10-21] MEDS: INSULIN GLARGINE (Lantus) 5 UNIT/0.05 ML (PER 5 UNITS) 35 UNIT SC ×2 (08:40→21:45)
[2024-10-21] MEDS: FLUCONAZOLE 100 MG TABLET 200 MG PO (08:40)
[2024-10-21] MEDS: PANTOPRAZOLE 40 MG TABLET PO (08:40)
[2024-10-21] MEDS: CLOPIDOGREL BISULFATE 75 MG TABLET PO (08:40)
[2024-10-21] MEDS: ASPIRIN EC 81 MG TABEC PO (08:40)
[2024-10-21] MEDS: amLODIPine BESYLATE 5 MG TABLET PO (08:40)
[2024-10-21] MEDS: TACROLIMUS 0.5 MG CAPSULE (NON-FORMULARY) 1.5 MG PO (08:42)
[2024-10-21] MEDS: FENOFIBRATE 145 MG TABLET (NON-FORMULARY) PO (08:42)
[2024-10-21] MEDS: ONDANSETRON INJ 2 MG/ML INJ 2 ML 4 MG IV (10:03)
[2024-10-21] MEDS: ENALAPRIL 20 MG TABLET PO ×2 (11:07→21:38)
--- NOTE | 2024-10-21 11:21 | PC.SS ---
Patient is alert/oriented. He is independent with ADL's. No DME. Patient resides with parents. Admitted for DKA. Patient is on insulin. He has a patch. He is not always consistent with checking his sugars. Patient states he follows up with his physician's at [facility] every 3 months post transplant. Patient follows at the [facility]. Patient has has social security income. Patient pharmacy used is [facility]. Patient will d/c to: [id number], [address], [facility] Patient alt medical decision maker: Komal Ruiz, mother, . Patient will d/c home once stable. Family to transport when medically stable.
--- NOTE | 2024-10-21 14:03 | ESPR_ITS ---
Documentation for date of: 10/21/24 Exam Vital Signs Temp Pulse Resp BP Pulse Ox O2 Del Method 97.7 F 80 17 159/112 H 99 Room Air 10/21/24 12:00 10/21/24 12:00 10/21/24 12:00 10/21/24 12:00 10/21/24 12:00 10/21/24 12:00 Objective Labs 10/21/24 04:28 10/21/24 04:28 Labs: Laboratory Results - last 24 hr 10/20/24 10/20/24 10/20/24 16:39 17:21 18:58 WBC 13.9 H RBC 6.05 H Hgb 15.0 Hct 43.9 MCV 73 L MCH 24.8 L MCHC 34.2 RDW Std Deviation 37.4 Plt Count 368 Neut % (Auto) 84 H Lymph % (Auto) 10 [place] % (Auto) 5 Eos % (Auto) 0 Baso % (Auto) 0 Neut # (Auto) 11.7 H Lymph # (Auto) 1.4 [place] # (Auto) 0.7 Eos # (Auto) 0.0 Baso # (Auto) 0.0 Immature Gran # (Auto) 0.10 H Absolute Nucleated RBC 0.00 Immature Gran % 1 H Nucleated RBC % 0 PT 10.6 INR 1.0 VBG pH 7.39 VBG pCO2 32 L VBG pO2 41 VBG O2 Sat (Aman) 75 L VBG Base Excess -4 L Sodium 133 L 133 L Potassium 4.0 4.1 Chloride 94 L 96 L Carbon Dioxide 18.2 L 23.2 Anion Gap 21 H 14 BUN 22 19 Creatinine 1.8 H 1.6 H Estim Creat Clear Calc 73.4 82.6 eGFR 51 L 59 L BUN/Creatinine Ratio 12 12 Glucose 443 H* 305 H D Calculated Osmolality 288 279 Calcium 9.8 8.9 Corrected Calcium 9.8 Magnesium 1.7 Total Bilirubin 0.8 AST 35 H ALT 23 Alkaline Phosphatase 75 Troponin I < 0.002 Total Protein 8.5 H Albumin 4.8 Globulin 3.7 H Albumin/Globulin Ratio 1.3 Lipase 34 Beta-Hydroxybutyrate/Acetoacetate 4.4 H Ur Collection Type Urine Color Urine Clarity Urine pH Ur Specific [place] Urine Protein Urine Glucose (UA) Urine Ketones Urine Blood Urine Nitrite Urine Bilirubin Urine Urobilinogen (Auto) Ur Leukocyte Esterase Urine RBC Urine WBC Ur Squamous Epith Cells Urine Bacteria 10/21/24 10/21/24 00:12 04:28 WBC 9.2 RBC 5.33 Hgb 13.2 L Hct 39.1 L MCV 73 L MCH 24.8 L MCHC 33.8 RDW Std Deviation 38.4 Plt Count 309 D Neut % (Auto) 60 Lymph % (Auto) 31 [place] % (Auto) 7 Eos % (Auto) 0 Baso % (Auto) 0 Neut # (Auto) 5.5 Lymph # (Auto) 2.9 [place] # (Auto) 0.7 Eos # (Auto) 0.0 Baso # (Auto) 0.0 Immature Gran # (Auto) 0.05 H Absolute Nucleated RBC 0.00 Immature Gran % 1 H Nucleated RBC % 0 PT INR VBG pH VBG pCO2 VBG pO2 VBG O2 Sat (Aman) VBG Base Excess Sodium 136 Potassium 3.8 Chloride 100 Carbon Dioxide 28.5 Anion Gap 8 BUN 14 Creatinine 1.4 H Estim Creat Clear Calc 84.7 eGFR > 60 BUN/Creatinine Ratio 10 L Glucose 143 H D Calculated Osmolality 274 L Calcium 9.2 Corrected Calcium Magnesium Total Bilirubin AST ALT Alkaline Phosphatase Troponin I Total Protein Albumin Globulin Albumin/Globulin Ratio Lipase Beta-Hydroxybutyrate/Acetoacetate Ur Collection Type Clean Catch Urine Color Lt-Yellow Urine Clarity Clear Urine pH 5.5 Ur Specific [place] 1.018 Urine Protein 1+ A Urine Glucose (UA) 4+ A Urine Ketones 1+ A Urine Blood Negative Urine Nitrite Negative Urine Bilirubin Negative Urine Urobilinogen (Auto) Negative Ur Leukocyte Esterase Negative Urine RBC 0 Urine WBC 0 Ur Squamous Epith Cells 0 Urine Bacteria None ABG Interpretation ABG results: 10/20/24 17:21 VBG pH 7.39 VBG pCO2 32 L VBG pO2 41 VBG Base Excess -4 L Quality Measures Quality Measures none Assessment & Plan Assessment Current Active Medications: Generic Name Dose Route Start Last Admin Trade Name Freq PRN Reason Stop Dose Admin Amlodipine Besylate 5 mg 10/21/24 09:00 10/21/24 08:40 Amlodipine Besylate 5 Mg Tablet PO 11/20/24 08:59 5 mg QDAY DYLON Administration Aspirin 81 mg 10/21/24 09:00 10/21/24 08:40 Aspirin Ec 81 Mg Tabec PO 11/20/24 08:59 81 mg QDAY DYLON Administration Atorvastatin Calcium 40 mg 10/20/24 21:00 10/20/24 20:47 Atorvastatin Calcium 20 Mg Tablet PO 11/19/24 20:59 40 mg HS DYLON Administration Clopidogrel Bisulfate 75 mg 10/21/24 09:00 10/21/24 08:40 Clopidogrel Bisulfate 75 Mg Tablet PO 11/20/24 08:59 75 mg QDAY DYLON Administration Sirolimus 0.5mg 0 ea 10/20/24 21:00 10/21/24 08:39 Tbalet PO 11/19/24 20:59 0.5 tablet BID DYLON Administration Enalapril 20 Mg 0 ea 10/21/24 10:30 10/21/24 11:07 Tablet PO 11/20/24 10:29 20 tablet BID DYLON Administration Dextrose 25 ml 10/20/24 19:30 Dextrose 50%-Water Inj 50 Ml Syringe IV 11/19/24 19:29 Q15MIN PRN BG 50-70 responsive npo pt Dextrose 50 ml 10/20/24 19:30 Dextrose 50%-Water Inj 50 Ml Syringe IV 11/19/24 19:29 Q15MIN PRN BG <50 OR BG <70 & pt unresponsive Fenofibrate 145 mg 10/21/24 09:00 10/21/24 08:42 Fenofibrate 145 Mg Tablet (Non-Formulary) PO 11/20/24 08:59 145 mg QDAY DYLON Administration Fluconazole 200 mg 10/21/24 09:00 10/21/24 08:40 Fluconazole 100 Mg Tablet PO 10/28/24 08:59 200 mg QDAY DYLON Administration Glucagon 1 mg 10/20/24 19:30 Glucagon Inj 1 Mg Vial IM Q15MIN PRN BG <70, and no IV access Heparin Sodium (Porcine) 5,000 unit 10/20/24 22:00 10/21/24 05:02 Heparin Sod Inj 5000 Unit/Ml Vial SC 11/03/24 21:59 5,000 unit Q8HR DYLON Administration Insulin Glargine 35 unit 10/20/24 21:00 10/21/24 08:40 Insulin Glargine (Lantus) 5 Unit/0.05 Ml (Per 5 Units) SC 11/19/24 20:59 35 unit BID DYLON Administration Insulin Human Regular 0 unit 10/20/24 21:00 10/21/24 12:30 Insulin Hum Regular 1 Unit/0.01 Ml (Per Unit) SC 11/19/24 20:59 2 unit ACHS DYLON Administration Protocol Ondansetron HCl 4 mg 10/20/24 19:31 10/21/24 10:03 Ondansetron Inj 2 Mg/Ml Inj 2 Ml IV 11/19/24 19:30 4 mg Q6H PRN Administration NAUSEA OR VOMITING Protocol Pantoprazole Sodium 40 mg 10/21/24 09:00 10/21/24 08:40 Pantoprazole 40 Mg Tablet PO 11/20/24 08:59 40 mg QDAY DYLON Administration Tacrolimus 1.5 mg 10/21/24 09:00 10/21/24 08:42 Tacrolimus 0.5 Mg Capsule (Non-Formulary) PO 11/20/24 08:59 1.5 mg QAM DYLON Administration Tacrolimus 1 mg 10/20/24 21:00 10/20/24 20:48 Tacrolimus 0.5 Mg Capsule (Non-Formulary) PO 11/19/24 20:59 1 mg HS DYLON Administration Plan 29-year-old male with past medical history of 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 # Diabetic ketoacidosis, resolved # History of insulin-dependent diabetes mellitus -Came to the hospital with complaints of nausea, vomiting and mild abdominal discomfort for 2 days before the day of admission. -Also reported that he is not compliant with his insulin and other oral medications. -Labs at the time of admission are significant for WBC 13.9, sodium 133, potassium 4, bicarb 18.2, anion gap 21. Glucose 443 -Repeat labs done 2 hours later after giving insulin 10 units and normal saline, showed normal anion gap and bicarb. Glucose 305. HbA1c is 11.6 -Patient was admitted in the floors for further care. Plan -Patient was started on insulin glargine 35 units subcutaneous twice daily -Started on insulin sliding scale -Hypoglycemia protocol in place -Low carbohydrate consistent diet -Dietitian referral was done. 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 -Will avoid nephrotoxic medication and renally dose the medications. -Consulted nephrology and will appreciate recommendations -Recommended to follow-up with nephrology on outpatient basis # History of cardiomyopathy, s/p cardiac transplantation at the age of 6 in 2000 -Patient is on tacrolimus and sirolimus, using fluconazole for prophylaxis -Resumed his medications # History of hypertension, hyperlipidemia -Patient is using rosuvastatin, amlodipine, enalapril -Resumed his home medications. # Hypochromic microcytic anemia -Hemoglobin is 13.2, MCV is 73, MCH 24.8 -Iron panel is ordered-will follow Hospital Maintenance Dispo: MedSurg DVT ppx: Heparin GI ppx: Protonix Diet: Low carb consistent IV lines: Peripheral Code status: Full code Patient plan of care was discussed with the attending physician, Dr. De León and senior resident Dr. 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 Anion gap closed on recheck, BHB 4.4 initially, blood glucose 443 --> 305 --> 143 now. Will continue with home dose of long-acting insulin Glargine 35 units BID, and low carb diet for now. Side Guider consulted for diabetes counseling. Plan to de-escalate dose and frequency to once daily from tomorrow, as blood sugar very well controlled and patient unlikely to need such high dose. Patient examined and case discussed with the team including attending physician. Note reviewed, I agree with the care plan as documented. - Chuck Morales MD, PGY 2 Attending Provider Attestation/Addendum I reviewed labs, imaging, EKG, home medications and prior available records. Face to face evaluation was performed by me. I have personally examined the patient and discussed assessment and plan with the IM team. I reviewed the resident note and agree with the plan with exceptions as below. Borderline DKA: Anion gap closed. Started insulin Lantus 35 units twice daily. Continue sliding scale insulin. Monitor fingersticks. Counseled the patient regarding the importance of medication compliance. History of heart transplant: No active cardiac symptoms. Resume home medications. Outpatient follow-up.
[2024-10-21] MEDS: ESCITALOPRAM OXALATE 10 MG TABLET PO (14:40)
[2024-10-21 17:24] LABS: Ferritin 97 ng/mL (10.5-307.3); Total Iron Binding Capacity 301 mcg/dL (250-425)
[2024-10-21 20:56] LABS: Iron 53 mcg/dL (65-175); Percent Iron Saturation 17 % (20-55); Unsaturated Iron Binding 248 (225-295)
[2024-10-21] MEDS: ATORVASTATIN CALCIUM 20 MG TABLET 40 MG PO (21:29)
[2024-10-21] MEDS: TACROLIMUS 0.5 MG CAPSULE (NON-FORMULARY) 1 MG PO (21:35)
[2024-10-22] VITALS: BP 130/93; PULSE 83; RESP 18; TEMP 36.6; O2SAT 97
[2024-10-22 04:00] VITALS: BP 124/89; PULSE 97; RESP 18; TEMP 36.2; O2SAT 99
[2024-10-22] MEDS: HEPARIN SOD INJ 5000 UNIT/ML VIAL SC (05:54)
[2024-10-22 05:56] LABS: Basophils % (Auto) 0 % (0-2.5); Eosinophils % (Auto) 0 % (0-10); Hematocrit 41.4 % (41.0-53.0); Hemoglobin 14.1 g/dL (13.5-16.0); Immature Granulocytes % (Auto) 1 % (0-0); Immature Granulocytes Auto 0.06 Thou/mm3 (0.00-0.00); Lymphocytes # (Auto) 2.4 Thou/mm3 (1.0-4.8); Lymphocytes % (Auto) 19 % (10-50); Mean Corpuscular HGB Conc 34.1 g/dl (31.0-37.0); Mean Corpuscular Hemoglobin 25.1 pg (25.0-35.0); Mean Corpuscular Volume 74 fL (80-100); Monocytes # (Auto) 1.1 Thou/mm3 (0.0-0.8); Monocytes % (Auto) 9 % (0-12); Neutrophils # (Auto) 8.9 Thou/mm3 (1.8-7.7); Neutrophils % (Auto) 72 % (37-80); Nucleated Red Blood Cell % 0 /100 WBC (0); Platelet Count 289 Thou/mm3 (140-440); RDW Standard Deviation 38.2 fL (35.1-43.9); Red Blood Count 5.62 Miln/mm3 (4.50-5.90); White Blood Count 12.4 Thou/mm3 (3.8-10.6)
[2024-10-22 06:06] LABS: Anion Gap 8 (7-16); BUN/Creatinine Ratio 11 Ratio (12-20); Blood Urea Nitrogen 15 mg/dL (9-23); Calcium 9.2 mg/dL (8.3-10.6); Carbon Dioxide 28.3 mMol/L (20.0-31.0); Chloride 96 mMol/L (98-107); Creatinine (Component) 1.4 mg/dL (0.6-1.3); Estimated Creatinine Clearance 84.7 mL/min (>60); Glucose 149 mg/dL (74-106); Osmolality,Calculated 268 (275-295); Potassium 3.5 mMol/L (3.4-5.1); Sodium 132 mMol/L (136-145); eGFR > 60 See Note
[2024-10-22 08:00] VITALS: BP 142/95; PULSE 91; RESP 16; TEMP 36.8; O2SAT 97
[2024-10-22] MEDS: INSULIN HUM REGULAR 1 UNIT/0.01 ML (PER UNIT) SC ×2 (08:08→12:34)
[2024-10-22] MEDS: INSULIN GLARGINE (Lantus) 5 UNIT/0.05 ML (PER 5 UNITS) 35 UNIT SC (08:09)
[2024-10-22] MEDS: TACROLIMUS 0.5 MG CAPSULE (NON-FORMULARY) 1.5 MG PO (08:09)
[2024-10-22 08:10] VITALS: BP 142/95; PULSE 91
[2024-10-22] MEDS: ASPIRIN EC 81 MG TABEC PO (08:10)
[2024-10-22] MEDS: amLODIPine BESYLATE 5 MG TABLET PO (08:10)
[2024-10-22] MEDS: ESCITALOPRAM OXALATE 10 MG TABLET PO (08:10)
[2024-10-22] MEDS: FENOFIBRATE 145 MG TABLET (NON-FORMULARY) PO (08:10)
[2024-10-22] MEDS: CLOPIDOGREL BISULFATE 75 MG TABLET PO (08:11)
[2024-10-22] MEDS: FLUCONAZOLE 100 MG TABLET 200 MG PO (08:11)
[2024-10-22] MEDS: ENALAPRIL 20 MG TABLET PO (08:11)
[2024-10-22] MEDS: PANTOPRAZOLE 40 MG TABLET PO (08:11)
[2024-10-22] MEDS: SIROLIMUS 0.5 MG PO (08:12)
--- NOTE | 2024-10-22 08:48 | ESCONSULT_ITS ---
History of Present Illness Data of Consult Requesting Physician: Glenn Carcamo MD Primary Care Provider: Za Pires NP Consult Narrative Reason for consult: WAYNE on CKD History of present illness: Mr. 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 Patient was admitted with diabetic ketoacidosis. Insulin, fluids were given.His blood sugars have been poorly controlled for years. Patient had a heart transplant at [facility] when he was 6 years old for cardiomyopathy; moreover, many of his cousins and family members have history of heart transplant secondary to some genetic condition which she did not specify. Patient follows up with [facility] every 3 months for tacrolimus and sirolimus levels with adjustments of medications. In the emergency department-patient presented hypertensive 166/102, heart rate 88, respiratory 30, afebrile satting 98 on room air. Pertinent lab findings included patient being in diabetic ketoacidosis with an anion gap of 21 and beta hydroxybutyrate levels of 4.4. Troponin was within normal limits, AST was mildly elevated at 35, creatinine 1.6, BUN 19, potassium 4.1, sodium 133. VBG showed pH 7.39, pCO2 32. EKG showed sinus rhythm with possible first-degree AV block and chest x-ray was negative for any acute process.Patient admitted to hospitalist team for diabetic ketoacidosis and renal consultation requested for elevated BUN and creatinine in the setting of calcineurin inhibitors. Patient currently seen in medical floor. Dad at bedside. cc:: cc: Glenn Carcamo MD Review of Systems Review of Systems Narrative Review of Systems: CONSTITUTIONAL: Patient denies any fever, chills. HEENT: Denies any visual disturbances or hearing problems. CARDIOVASCULAR: Patient denies any chest pain, shortness of breath, swelling in the lower extremities. PULMONARY: Patient denies any shortness of breath, cough. GASTROINTESTINAL: Patient denies any abdominal pain, constipation, nausea, vomiting, diarrhea. GENITOURINARY: Patient denies any urinary symptoms of burning or frequency or hematuria, denies any form in the urine. SKIN: Denies any rash. MUSCULOSKELETAL: Denies any muscular skeletal problems of joint pains. NEUROLOGICAL: Denies any neurological problems of strokes, seizures or confusion. Denies any memory problems. PSYCHIATRIC: Denies any depression or anxiety. LYMPHATICS : No lymphadenopathy Past Medical History Past Medical History NEUROLOGIC: Negative Neurological Disorders CARDIAC: Positive Cardiac Disorders, Coronary Artery Disease, Congestive Heart Failure, Congenital Heart Disease, Cardiomyopathy and Hypertension RESPIRATORY: Negative Chronic Obstructive Pulmonary Disease (COPD) or Asthma GASTROINTESTINAL: Positive Gastrointestinal Disorders and Ulcer; Negative Hepatitis GENITOURINARY: Negative Genitourinary Disorders or Renal Disease REPRODUCTIVE: Negative Testicular Cancer MUSCULOSKELETAL: Negative Musculoskeletal Disorders ENT: Positive Ear Infection ENDOCRINE: Positive Endocrine Disorders and Diabetes Mellitus Type 2; Negative Diabetes Mellitus Type 1 HEMATOLOGIC: Negative Blood Disorders or Sickle Cell Disease OTHER HISTORY: Positive Hospitalization, Blood Transfusions and Organ Transplant; Negative Autoimmune Disease, Down Syndrome, Developmental Delay, Shingles, Falls, Blood Transfusion Reaction, Anesthesia Reactions, Chemotherapy, Radiation Therapy, Hyperbaric Therapy, MRSA, VRSA, Vancomycin-Resistant Enterococci, Human Immunodeficiency Virus (HIV), Chicken Pox, Measles, Mumps, Rubella (Faroese Measles), Pertussis, Clostridium Difficile, Cancer or Testicular Cancer Family History FAMILY HISTORY: Positive Family Cardiac Disorders; Negative Family Psychiatric Problems, Family Respiratory Disorders, Family Gastrointestinal Problems, Family Cancer, Family Surgery or Family Anesthesia Reaction Surgical History SURGICAL: Positive Cardiac Surgery, Open Heart Surgery, Coronary Stent, Ear Surgery, Tonsillectomy and Organ Transplant; Negative Endocrine Surgery, Thyroidectomy, Abdominal Surgery, Nephrectomy, Joint Replacement, Neurologic Surgery or Vasectomy Social History SMOKING STATUS: Never smoker SECOND HAND EXPOSURE: No SUBSTANCE USE: former substance user Meds Home Medications and Allergies Home Medications ?Medication ?Instructions ?Recorded ?Confirmed ?Type clopidogrel 75 mg tablet 75 mg PO QDAY 01/20/24 10/21/24 History fenofibrate nanocrystallized 145 145 mg PO DAILY 01/20/24 10/21/24 History mg tablet pantoprazole 40 mg tablet,delayed 40 mg PO QDAY 01/20/24 10/21/24 History release metformin 500 mg tablet 1,000 mg PO BID 08/13/24 10/21/24 History amlodipine 5 mg tablet 5 mg PO QDAY 10/15/24 10/21/24 History empagliflozin 25 mg tablet 25 mg PO QAM 10/15/24 10/21/24 History (Jardiance) escitalopram oxalate 10 mg tablet 10 mg PO QDAY 10/15/24 10/21/24 History insulin glargine 100 unit/mL (3 35 unit subcut BID 10/15/24 10/21/24 History mL) subcutaneous pen sirolimus 0.5 mg tablet 0.5 mg PO BID 10/15/24 10/21/24 History tacrolimus 0.5 mg capsule, 2.5 mg PO QDAY 10/15/24 10/21/24 History immediate-release famotidine 20 mg tablet 20 mg PO HS 10/21/24 10/21/24 History rosuvastatin 10 mg tablet 10 mg PO QHSPRN PRN DIABETES 10/21/24 10/21/24 History Allergies Allergy/AdvReac Type Severity Reaction Status Date / Time No Known Allergies Allergy Verified 10/15/24 11:20 Exam Vital Signs Temp Pulse Resp BP Pulse Ox O2 Del Method 36.8 C 91 16 142/95 H 97 Room Air 10/22/24 08:00 10/22/24 08:10 10/22/24 08:00 10/22/24 08:10 10/22/24 08:00 10/22/24 08:00 Narrative Exam GENERAL APPEARANCE: Patient seems to be comfortable, adequately hydrated and nourished. HEENT: EOMI, PERRLA NECK: Neck supple, no JVD or bruit CARDIOVASCULAR: Heart regular, no murmurs LUNGS/CHEST: Chest clear to auscultation. No rales, rhonchi, wheezing ABDOMEN: Soft, nontender, nondistended. No masses. Normal bowel sounds. EXTREMITIES: No edema, clubbing or cyanosis. SKIN: Skin exam normal without any rashes MUSCULOSKELETAL: Musculoskeletal exam normal PSYCHIATRIC: Normal mood, affect LYMPHATICS: No lymphadenopathy noted NEUROLOGICAL : No neurological deficits Results Labs 10/22/24 05:26 10/22/24 05:26 Labs: Short CBC 10/22/24 Range/Units 05:26 WBC 12.4 H (3.8-10.6) Thou/mm3 Hgb 14.1 (13.5-16.0) g/dL Hct 41.4 (41.0-53.0) % Plt Count 289 (140-440) Thou/mm3 [facility] 10/22/24 05:26 Sodium 132 L Potassium 3.5 Chloride 96 L Carbon Dioxide 28.3 BUN 15 Creatinine 1.4 H Glucose 149 H Calcium 9.2 ABG Interpretation ABG results: 10/20/24 17:21 VBG pH 7.39 VBG pCO2 32 L VBG pO2 41 VBG Base Excess -4 L Assessment & Plan Assessment and plan (1) Chronic kidney disease, stage III (moderate): Status: Acute (2) Uncontrolled diabetes mellitus: Status: Acute (3) Proteinuria: Status: Acute (4) DKA (diabetic ketoacidosis): Status: Acute (5) Acute renal failure (ARF): Status: Acute (6) History of heart transplant: Status: Chronic Additional Assessment & Plan Additional Plan: Patient with acute on chronic renal insufficiency-improved with IV fluids. Noted to have proteinuria-suspect related to diabetic nephropathy. Patient also takes her calcineurin inhibitors which can contribute to underlying CKD. Emphasized aggressive blood pressure, blood sugar, lipid control to prevent progression of kidney disease. He is going to follow-up with me in 1 to 2 weeks. Plan of care discussed with patient and dad. Thank you Dr. De León for allowing me to participate in the care of Mr. Ruiz (3) Proteinuria Qualifiers: Proteinuria type: unspecified Qualified Code(s): R80.9 - Proteinuria, unspecified
[2024-10-22 12:00] VITALS: BP 125/90; PULSE 96; RESP 16; TEMP 36.4; O2SAT 98
[2024-10-22] MEDS: FERROUS SULF 325 MG TABLET PO (12:34)
--- NOTE | 2024-10-22 14:52 | ESDS_ITS ---
Planned Discharge Date 10/22/24 DS: Providers Provider Date of admission: 10/20/24 19:31 Primary care physician: Za Pires NP Admitting Provider: Glenn Carcamo MD Attending Provider on Admission: Glenn Carcamo MD Consults: 10/20/24 20:27 Referral Registered Dietitian Routine Comment: Insulin-dependent diabetes type 2 10/21/24 15:22 Consult to Nephrology Routine Comment: Consulting Provider: Mary Goldstein Attending Provider on DC: Gus De León MD Discharging Provider: Gus De León MD Diagnosis Problem List Completed Was Problem List Reviewed/Reconciled?: Yes Hospital Course - Hospitalist Hospital Course Hospital course: 29-year-old male with past medical history of 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 Patient is on long-acting insulin 35 units in the morning and at night, he also takes sliding scale premeals and is also on Ozempic. Patient has history of noncompliance in the past per chart checking previous notes; however, on examination and interviewing he seems pleasant. And monitors his blood glucose in the mornings; he states that his blood sugars are usually in the 250-280s (He has a freestyle ni 2.). Patient had a heart transplant at [facility] when he was 6 years old for cardiomyopathy; moreover, many of his cousins and family members have history of heart transplant secondary to some genetic condition which she did not specify. Patient follows up with [facility] every 3 months for tacrolimus and sirolimus levels with adjustments of medications. Patient was managed for borderline DKA and his gap closed on the repeat BMP for which she was managed in telemetry. His home long-acting insulin was resumed plus sliding scale insulin. His fingersticks improved and were within goal after 24 hours of monitoring. His symptoms improved with IV hydration and symptomatic management. He was ready for discharge on 10/22/2024. Medical problems upon discharge: Borderline DKA: Anion gap closed. Started insulin Lantus 35 units twice daily. Home medications. Monitor fingersticks. Medication noncompliance: Counseled the patient regarding the importance of medication compliance. History of heart transplant: No active cardiac symptoms. Resume home medications. Outpatient follow-up. Time spent is 40 minutes. More than 50% of the time was spent on patient education and coordination of care. Time Spent with Patient Time attestation: Total time spent providing and/or coordinating discharge services: Discharge Results Labs Diagrams: 10/22/24 05:26 10/22/24 05:26 Labs: Short CBC 10/22/24 Range/Units 05:26 WBC 12.4 H (3.8-10.6) Thou/mm3 Hgb 14.1 (13.5-16.0) g/dL Hct 41.4 (41.0-53.0) % Plt Count 289 (140-440) Thou/mm3 BMP 10/22/24 05:26 Sodium 132 L Potassium 3.5 Chloride 96 L Carbon Dioxide 28.3 BUN 15 Creatinine 1.4 H Glucose 149 H Calcium 9.2 Exam Vital Signs Temp Pulse Resp BP Pulse Ox O2 Del Method 97.5 F 96 16 125/90 H 98 Room Air 10/22/24 12:00 10/22/24 12:00 10/22/24 12:00 10/22/24 12:00 10/22/24 12:00 10/22/24 12:00 Narrative General: Alert and oriented x3. In no acute distress. Eyes: Pupils are equal and reactive to light bilaterally. HEENT: Atraumatic, normocephalic. No JVD noted. Cardiovascular: Normal S1 and S2. Normal rate and regular rhythm. No murmurs appreciated. No peripheral pitting edema noted. No JVD noted. Respiratory: No respiratory distress. Lungs are clear to auscultation bilaterally. No wheezing or crackles heard. Abdomen: Soft, nontender, nondistended. Skin: No rash. Musculoskeletal: No gross injuries. Able to move all 4 extremities. Neuro: Alert and oriented x3. Sensation is intact throughout. Strength is 5/5 and symmetric. No focal neuro deficits. Psych: Normal affect and mood. Discharge Plan Plan Patient Disposition: HOME (Self Care) Patient condition on transfer: Stable Care Plan Goals: Continue to take your home medications for diabetes and make sure you do not miss any doses Monitor your fingersticks and call your doctor or come to the ED if your glucose level is too high or too low Take your heart medications and follow-up with the heart transplant clinic Follow-up with your PCP in 1 week Prescriptions/Referrals Prescriptions/Med Rec: Continued aspirin 81 mg tablet,delayed release (DR/EC) 81 mg PO QDAY Qty: 90 0RF All Day Allergy (cetirizine) 10 mg capsule 10 mg PO QDAY Qty: 90 0RF fenofibrate nanocrystallized 145 mg tablet 145 mg PO DAILY Patient Comments: TAKE 1 TABLET BY MOUTH DAILY pantoprazole 40 mg tablet,delayed release (DR/EC) 40 mg PO QDAY clopidogrel 75 mg tablet 75 mg PO QDAY sirolimus 0.5 mg tablet 0.5 mg PO BID tacrolimus 0.5 mg capsule 2.5 mg PO QDAY Rx Instructions: 3CAP QAM 2CAP QHS (DME) FreeStyle Ni 2 Sensor Kit See Rx Instructions .Route Qty: 1 0RF Rx Instructions: As directed--CHANGE EVERY 14 DAYS (CHANGED 1 WEEK AGO) (DME) FreeStyle Ni 2 Union Misc See Rx Instructions .Route Qty: 1 0RF Rx Instructions: As directed Ozempic 2 mg/dose (8 mg/3 mL) pen injector 2 mg subcut QWEEK Qty: 3 3RF Rx Instructions: takes on Fridays enalapril maleate 20 mg tablet 20 mg PO BID Qty: 180 1RF insulin glargine 100 unit/mL (3 mL) insulin pen 35 unit subcut BID Rx Instructions: 35U QAM 35U QAM 35U QHS Jardiance 25 mg tablet 25 mg PO QAM amlodipine 5 mg tablet 5 mg PO QDAY metformin 500 mg tablet 1,000 mg PO BID insulin regular human 100 unit/mL (3 mL) insulin pen 1 sliding scale dose subcut USEASDIRECTD Qty: 15 3RF Rx Instructions: sliding scale with meals (DME) pen needle, diabetic [Comfort EZ Pen [place]] 31 gauge x 3/16 needle See Rx Instructions .Route Qty: 1200 0RF Rx Instructions: As directed TID with meals famotidine 20 mg tablet 20 mg PO HS rosuvastatin 10 mg tablet 10 mg PO QHSPRN PRN (Reason: DIABETES) No Action fluconazole 200 mg tablet 200 mg PO QDAY Qty: 90 1RF escitalopram oxalate 10 mg tablet 10 mg PO QDAY Referrals: Pranay C HAND LASTER,Za Andrade NP [Primary Care Provider] - Patient/Caregiver Discharge Instructions Discharge Activity: activity as tolerated Other Discharge Diet Instructions: Diabetic diet Education Materials: Diabetes and Heart Disease, Diabetes and Kidney Disease, Ketoacidosis Ch Print Language: [place]se Stand Alone Forms: Martha Award Info., Patient Portal Info Letter Discharge Order Discharge Orders: Discharge (Routine); Ordered 10/22/24 Ordered By: Gus De León Quality Discharge Quality Measures none
== END 2024-10-22 13:31 | disposition home or self-care (01) | DRG 420 ==
LOC: SERX 16:46 → SERHOLD 19:44 → S3NX 21:16
PROVIDERS: Nurse Practitioner Primary Care; Admitting Provider Internal Medicine; Emergency Provider Emergency Medicine; PCP Nurse Practitioner Family; Visit Provider Internal Medicine
DX: E11.10 Type 2 diabetes mellitus with ketoacidosis without coma (principal); D50.9 Iron deficiency anemia, unspecified; D72.829 Elevated white blood cell count, unspecified; E11.22 Type 2 diabetes mellitus with diabetic chronic kidney disease; E86.0 Dehydration; I12.9 Hypertensive chronic kidney disease with stage 1 through stage 4 chronic kidney disease, or unspecified chronic kidney disease; N17.9 Acute kidney failure, unspecified; E78.5 Hyperlipidemia, unspecified; N18.31 Chronic kidney disease, stage 3a; I25.10 Atherosclerotic heart disease of native coronary artery without angina pectoris; T38.3X6A Underdosing of insulin and oral hypoglycemic [antidiabetic] drugs, initial encounter; Z91.128 Patient's intentional underdosing of medication regimen for other reason; Z87.74 Personal history of (corrected) congenital malformations of heart and circulatory system; Z94.1 Heart transplant status; Z79.4 Long term (current) use of insulin; Z79.621 Long term (current) use of calcineurin inhibitor; Z79.02 Long term (current) use of antithrombotics/antiplatelets; Z79.84 Long term (current) use of oral hypoglycemic drugs; Z79.82 Long term (current) use of aspirin; Z79.899 Other long term (current) drug therapy
CPT/HCPCS: 36415; 71046; 80048; 80053; 81001; 82010; 82728; 82803; 83036; 83540; 83550; 83690; 83735; 84484; 85025; 85610; 93005; 96360; 96361; 96372; 99285; J1643; J1815; J2405; J7030; J7507; A9270; J1644

== ENCOUNTER → 2024-11-24 | Outpatient (BNVA) | payer MEDICAID, SELFPAY | END | disposition home or self-care (01) | PROVIDERS: PCP Nurse Practitioner Primary Care; Referring Provider Nurse Practitioner Primary Care; Visit Provider Nurse Practitioner Primary Care | DX: Z71.2 Person consulting for explanation of examination or test findings (principal) ==

== ENCOUNTER → 2024-12-02 | Outpatient (BNVA) | payer MEDICAID, SELFPAY | END | disposition home or self-care (01) | PROVIDERS: PCP Nurse Practitioner Primary Care; Referring Provider Nurse Practitioner Primary Care; Visit Provider Nurse Practitioner Primary Care | DX: Z71.2 Person consulting for explanation of examination or test findings (principal); Z91.199 Patient's noncompliance with other medical treatment and regimen due to unspecified reason; Z79.4 Long term (current) use of insulin; E11.65 Type 2 diabetes mellitus with hyperglycemia | CPT/HCPCS: 83036; 99213 ==

== ENCOUNTER → 2025-02-25 | Outpatient (BNVA) | payer MEDICAID, SELFPAY | END | disposition home or self-care (01) | PROVIDERS: PCP Internal Medicine; Referring Provider Internal Medicine; Visit Provider Internal Medicine | DX: E78.5 Hyperlipidemia, unspecified (principal); E11.22 Type 2 diabetes mellitus with diabetic chronic kidney disease; I12.9 Hypertensive chronic kidney disease with stage 1 through stage 4 chronic kidney disease, or unspecified chronic kidney disease; N18.30 Chronic kidney disease, stage 3 unspecified; R80.9 Proteinuria, unspecified; Z79.4 Long term (current) use of insulin; Z94.1 Heart transplant status; F32.1 Major depressive disorder, single episode, moderate ==

== ENCOUNTER → 2025-04-08 | Outpatient (BNVA) | payer MEDICAID, SELFPAY | END | disposition home or self-care (01) | PROVIDERS: PCP Internal Medicine; Referring Provider Internal Medicine; Visit Provider Internal Medicine | DX: N18.30 Chronic kidney disease, stage 3 unspecified (principal); E11.22 Type 2 diabetes mellitus with diabetic chronic kidney disease; I12.9 Hypertensive chronic kidney disease with stage 1 through stage 4 chronic kidney disease, or unspecified chronic kidney disease; R80.9 Proteinuria, unspecified; Z79.4 Long term (current) use of insulin; E78.5 Hyperlipidemia, unspecified; Z94.1 Heart transplant status; F32.1 Major depressive disorder, single episode, moderate | CPT/HCPCS: 99214 ==

== ENCOUNTER 2025-08-30 07:23 | Emergency (ER) | payer MEDICAID, SELFPAY ==
[2025-08-30 07:30] VITALS: BP 200/140; PULSE 106; RESP 20; TEMP 36.6; O2SAT 100; BMI 24.8
[2025-08-30 07:35] VITALS: PULSE 114; RESP 28; O2SAT 99; BMI 24.8
--- NOTE | 2025-08-30 07:42 | EKG_ITS ---
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
--- NOTE | 2025-08-30 07:43 | XR_ITS ---
EXAMINATION: AP chest single view TECHNIQUE: AP portable upright chest single view Date and time: August 30, 2025, 0754 hours INDICATIONS: Chest pain today. FINDINGS: Mild enlargement cardiac contour Median sternotomy wires Moderate vascular congestion. No lobar pneumonia or pulmonary edema IMPRESSION: Moderate vascular congestion
[2025-08-30] MEDS: MORPHINE SULF INJ 4 MG/ML VIAL IVP (07:49)
[2025-08-30 08:01] LABS: Basophils # (Auto) 0.1 Thou/mm3 (0.0-0.2); Basophils % (Auto) 1 % (0-2.5); Eosinophils # (Auto) 0.1 Thou/mm3 (0.0-0.5); Eosinophils % (Auto) 1 % (0-10); Hematocrit 42.7 % (41.0-53.0); Hemoglobin 14.1 g/dL (13.5-16.0); Immature Granulocytes Auto 0.03 Thou/mm3 (0.00-0.00); Lymphocytes # (Auto) 2.5 Thou/mm3 (1.0-4.8); Lymphocytes % (Auto) 24 % (10-50); Mean Corpuscular HGB Conc 33.0 g/dl (31.0-37.0); Mean Corpuscular Hemoglobin 25.5 pg (25.0-35.0); Mean Corpuscular Volume 77 fL (80-100); Monocytes # (Auto) 1.0 Thou/mm3 (0.0-0.8); Monocytes % (Auto) 9 % (0-12); Neutrophils # (Auto) 6.6 Thou/mm3 (1.8-7.7); Neutrophils % (Auto) 65 % (37-80); Nucleated Red Blood Cell # 0.00 Thou/mm3 (0.00-0.00); Nucleated Red Blood Cell % 0 /100 WBC (0); Platelet Count 270 Thou/mm3 (140-440); RDW Standard Deviation 40.2 fL (35.1-43.9); Red Blood Count 5.53 Miln/mm3 (4.50-5.90); White Blood Count 10.2 Thou/mm3 (3.8-10.6)
[2025-08-30 08:22] LABS: Alanine Aminotransferase 18 U/L (10-49); Albumin, Serum 4.3 gm/dL (3.5-5.0); Albumin/Globulin Ratio 1.4 (1.2-2.2); Alkaline Phosphatase 61 U/L (46-116); Anion Gap 16 (7-16); Aspartate Amino Transferase 26 U/L (0-34); BUN/Creatinine Ratio 11 Ratio (12-20); Bilirubin,Total 0.6 mg/dL (0.3-1.2); Blood Urea Nitrogen 16 mg/dL (9-23); Calcium 8.8 mg/dL (8.3-10.6); Calcium (Corrected) 8.8 mg/dL (8.5-10.1); Carbon Dioxide 21.6 mMol/L (20.0-31.0); Chloride 96 mMol/L (98-107); Creatinine (Component) 1.5 mg/dL (0.6-1.3); Estimated Creatinine Clearance 78.3 mL/min (>60); Globulin 3.0 gm/dL (2.3-3.5); Glucose 385 mg/dL (74-106); Lipase 55 U/L (12-53); Magnesium 1.5 mg/dL (1.6-2.6); Osmolality,Calculated 285 (275-295); Potassium 3.7 mMol/L (3.4-5.1); Sodium 134 mMol/L (136-145); Total Protein 7.3 gm/dL (5.7-8.2); Troponin I < 0.002 ng/mL (0.0-0.045); eGFR > 60 See Note
[2025-08-30] MEDS: INSULIN HUM REGULAR 1 UNIT/0.01 ML (PER UNIT) 5 UNIT IV (08:22)
--- NOTE | 2025-08-30 08:30 | PC.NURSE ---
In to assess pt. Pt BIBA from home with c/o CP, upper abd pain, and n/v upon wakening this morning. EMS also reports BS of 400. Ordes received and initiated. Call light placed within reach. Plan of care ongoing.
[2025-08-30 08:32] VITALS: PULSE 83
[2025-08-30 08:38] LABS: B-Type Natriuretic Peptide 235 pg/mL (0-100)
[2025-08-30 08:40] LABS: INR 0.9 (0.9-1.3); Partial Thromboplastin Time 24.4 Seconds (22.0-36.0); Prothrombin Time 10.0 Seconds (9.0-12.2)
--- NOTE | 2025-08-30 08:58 | PD.EDADULT ---
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 Pain described as aching pressure in sensation located most to the center and left side of chest, rating 9/10 in severity. Accompanied by nausea, vomiting, and feeling dizzy. Denies fever, chills, sweating. Denies cough, shortness of breath. Denies diarrhea, constipation. Denies dysuria, urinary frequency and urgency. Related Data Home Medications ?Medication ?Instructions ?Recorded ?Confirmed clopidogrel 75 mg tablet 75 mg PO QDAY 01/20/24 04/08/25 fenofibrate nanocrystallized 145 145 mg PO DAILY 01/20/24 04/08/25 mg tablet pantoprazole 40 mg tablet,delayed 40 mg PO QDAY 01/20/24 04/08/25 release metformin 500 mg tablet 1,000 mg PO BID 08/13/24 04/08/25 amlodipine 5 mg tablet 5 mg PO QDAY 10/15/24 04/08/25 empagliflozin 25 mg tablet 25 mg PO QAM 10/15/24 04/08/25 (Jardiance) escitalopram oxalate 10 mg tablet 10 mg PO QDAY 10/15/24 04/08/25 tacrolimus 0.5 mg capsule, 2.5 mg PO QDAY 10/15/24 04/08/25 immediate-release famotidine 20 mg tablet 20 mg PO HS 10/21/24 04/08/25 enalapril maleate 10 mg tablet 10 mg PO BID 12/02/24 04/08/25 rosuvastatin 20 mg tablet 20 mg PO QHS 12/02/24 04/08/25 sirolimus 0.5 mg tablet 1 mg PO QDAY 12/02/24 04/08/25 Previous Rx's ?Medication ?Instructions ?Recorded aspirin 81 mg tablet,delayed 81 mg PO QDAY #90 tabs 01/20/24 release cetirizine 10 mg capsule (All Day 10 mg PO QDAY #90 caps 01/20/24 Allergy (cetirizine)) pen needle, diabetic 31 gauge x #1,200 ea 08/13/24 3/16 (Comfort EZ Pen [place]) flash glucose scanning reader #1 ea 08/20/24 (FreeStyle Ni 2 [place]) flash glucose sensor (FreeStyle #1 ea 08/20/24 Ni 2 Sensor kit) fluconazole 200 mg tablet 200 mg PO QDAY #90 tabs 10/15/24 semaglutide 2 mg/dose (8 mg/3 mL) 2 mg (0.75 mL) subcut QWEEK #3 mL 10/15/24 subcutaneous pen injector (Ozempic) insulin glargine 100 unit/mL (3 45 unit (0.45 mL) subcut QDAY #15 12/21/24 mL) subcutaneous pen mL insulin regular human 100 unit/mL 1 sliding scale dose subcut 12/21/24 (3 mL) subcutaneous pen USEASDIRECTD #15 mL Allergies Allergy/AdvReac Type Severity Reaction Status Date / Time No Known Allergies Allergy Verified 08/30/25 07:41 Review of Systems Review of Systems Systems Reviewed: All systems reviewed, normal except as documented Past Medical History Past Medical History CARDIAC: Positive Cardiac Disorders, Coronary Artery Disease, Congestive Heart Failure, Congenital Heart Disease, Cardiomyopathy and Hypertension GASTROINTESTINAL: Positive Gastrointestinal Disorders and Ulcer ENT: Positive Ear Infection ENDOCRINE: Positive Endocrine Disorders and Diabetes Mellitus Type 2 OTHER HISTORY: Positive Hospitalization, Blood Transfusions and Organ Transplant Family History FAMILY HISTORY: Positive Family Cardiac Disorders Surgical History SURGICAL: Positive Cardiac Surgery, Open Heart Surgery, Coronary Stent, Ear Surgery, Tonsillectomy and Organ Transplant Social History SMOKING STATUS: Never smoker SECOND HAND EXPOSURE: No SUBSTANCE USE: former substance user ED Exam Narrative Physical exam: GENERAL APPEARANCE: alert and oriented x 4, well-developed, well-nourished, pale, diaphoretic HEENT: Normocephalic, atraumatic; pupils equal, round, reactive to light; EOMI; mucous membranes pink, moist; oropharynx clear NECK: Supple LUNGS: CTABL; no wheezes, no rales, no rhonchi HEART: Tachycardic rate, regular rhythm; normal S1, S2; no murmurs ABDOMEN: mildly distended; normal BS; soft, no tenderness, no guarding, no rebound; no masses, no organomegaly, no hernia BACK: no CVA tenderness EXTREMITIES: muscular tightness in the right leg; atraumatic; no edema NEUROLOGIC: awake; alert and oriented x4; cranial nerves II-XII grossly intact; no focal sensory or motor deficits PSYCHIATRIC: appropriate mood and affect SKIN: warm, pale, diaphoretic; no rashes Course Course Course Narrative: 1245: We reviewed all the results, analysis, and treatment plans. Patient is amenable to discharge. Reports feeling improved. Blood pressure at this time is elevated, will order amlodipine prior to DC. Quality Measures none Orders Category Date Time Status Bedside COVID-19 Antigen Test NOW Care 08/30/25 08:57 Active Refrigerator Mover NOW Care 08/30/25 07:43 Active EKG (ED ONLY) *Do not use* NOW Care 08/30/25 07:42 Completed EKG (ED Only) Stat Exams 08/30/25 07:42 Draft XR chest 1V portable Stat Exams 08/30/25 07:43 Completed B-Type Natriuretic Peptide Stat Lab 08/30/25 07:45 Completed CBC Stat Lab 08/30/25 07:45 Completed Comprehensive Metabolic Panel Stat Lab 08/30/25 07:45 Completed Influenza A & B Rapid Panel Stat Lab 08/30/25 09:53 Completed Lipase Stat Lab 08/30/25 07:45 Completed Magnesium Stat Lab 08/30/25 07:45 Completed Partial Thromboplastin Time Stat Lab 08/30/25 07:45 Completed Prothrombin Time with INR Stat Lab 08/30/25 07:45 Completed Troponin I Stat Lab 08/30/25 07:45 Completed Insulin Regular Med 08/30/25 08:08 Discontinued 5 unit IV X1 ONE Magnesium Sulfate 2 GM Ivpb [Magnesium Sulfate Ivpb] Med 08/30/25 09:44 Discontinued 2 gm in 50 ml IV X1 Morphine* Inj Med 08/30/25 07:44 Discontinued 4 mg IVP X1 ONE Nicardipine/Ns 20Mg Ivpb [Cardene Ivpb] Med 08/30/25 07:38 Discontinued 20 mg in 200 ml IV 5 mg/hr amLODIPine BESYLATE [Norvasc] Med 08/30/25 12:44 Discontinued 5 mg PO X1 ONE Vital Signs Vital signs: Vital Signs Temperature 97.8 F 08/30/25 07:30 Pulse Rate 106 H 08/30/25 07:30 Respiratory Rate 20 08/30/25 07:30 Blood Pressure 200/140 H 08/30/25 07:30 Pulse Oximetry (%) 100 08/30/25 07:30 Oxygen Delivery Method Room Air 08/30/25 07:30 Pulse ox is 100% on room air which is adequate. Discharge Plan Plan Patient Disposition: HOME (Self Care) Prescriptions/Referrals Prescriptions/Med Rec: No Action aspirin 81 mg tablet,delayed release (DR/EC) 81 mg PO QDAY Qty: 90 0RF All Day Allergy (cetirizine) 10 mg capsule 10 mg PO QDAY Qty: 90 0RF fenofibrate nanocrystallized 145 mg tablet 145 mg PO DAILY Patient Comments: TAKE 1 TABLET BY MOUTH DAILY pantoprazole 40 mg tablet,delayed release (DR/EC) 40 mg PO QDAY clopidogrel 75 mg tablet 75 mg PO QDAY tacrolimus 0.5 mg capsule 2.5 mg PO QDAY Rx Instructions: 3CAP QAM 2CAP QHS sirolimus 0.5 mg tablet 1 mg PO QDAY (DME) FreeStyle Ni 2 Sensor Kit See Rx Instructions .Route Qty: 1 0RF Rx Instructions: As directed--CHANGE EVERY 14 DAYS (CHANGED 1 WEEK AGO) (DME) FreeStyle Ni 2 [place] Misc See Rx Instructions .Route Qty: 1 0RF Rx Instructions: As directed Ozempic 2 mg/dose (8 mg/3 mL) pen injector 2 mg subcut QWEEK Qty: 3 3RF Rx Instructions: takes on Fridays fluconazole 200 mg tablet 200 mg PO QDAY Qty: 90 1RF Jardiance 25 mg tablet 25 mg PO QAM amlodipine 5 mg tablet 5 mg PO QDAY escitalopram oxalate 10 mg tablet 10 mg PO QDAY metformin 500 mg tablet 1,000 mg PO BID (DME) pen needle, diabetic [Comfort EZ Pen [place]] 31 gauge x 3/16 needle See Rx Instructions .Route Qty: 1200 0RF Rx Instructions: As directed TID with meals rosuvastatin 20 mg tablet 20 mg PO QHS enalapril maleate 10 mg tablet 10 mg PO BID insulin regular human 100 unit/mL (3 mL) insulin pen 1 sliding scale dose subcut USEASDIRECTD Qty: 15 3RF Rx Instructions: sliding scale with meals insulin glargine 100 unit/mL (3 mL) insulin pen 45 unit subcut QDAY Qty: 15 3RF Rx Instructions: 30UNITS QAM 15UNITS AHS famotidine 20 mg tablet 20 mg PO HS Referrals: Pranay ED RISK PREVENTION ENGINEER,Za Andrade RISK PREVENTION ENGINEER [Primary Care Provider, Emergency Medicine] - In 1 week Problem List Clinical Impression: Hypertensive urgency, Hyperglycemia, Vomiting Patient/Caregiver Discharge Instructions Education Materials: ED Diabetes with High Blood Sugar, ED Diet for Vomiting or ... Print Language: Chinese Stand Alone Forms: Martha Award Info., Patient Portal Info Letter MDM Narrative MDM hospital course (for use when minimal MDM required): Baylee Coleman am scribing for and in the presence of Dr. Deshpande. Clinical Information Provided by: patient and EMS [facility] Meds/Rx considered, not ordered None Labs/Rad/Tests considered, not ordered None Chronic Illness/Social Conditions which may negatively complicate care or outcome(s)-explain: CHF/CAD/Cardiac illness EKG Interpretation EKG #1: EKG Interpretation: EKG @ 07:42 AM. Sinus rhythm with occasional PVCs, rate 85, no STEMI. Labs Lab(s) Interpretation(s): Magnesium mildly low at 1.5 Imaging Imaging Interpretation(s): Ordering Physician: Mehreen Deshpande MD Date of Service: 08/30/25 Procedure(s): XR chest 1V portable Accession Number(s): [id number] cc: Etienne Elmore MD; Mehreen Deshpande MD~ EXAMINATION: AP chest single view TECHNIQUE: AP portable upright chest single view Date and time: August 30, 2025, 0754 hours INDICATIONS: Chest pain today. FINDINGS: Mild enlargement cardiac contour Median sternotomy wires Moderate vascular congestion. No lobar pneumonia or pulmonary edema IMPRESSION: Moderate vascular congestion Dictated By: Etienne Elmore MD Signed By: <Electronically signed by Etienne Elmore MD in OV> 08/30/25 0806 Medication Administration(s) Medication Administration History Discontinued Medications Amlodipine Besylate (Amlodipine Besylate 5 Mg Tablet) 5 mg PO X1 ONE Stop: 08/30/25 12:45 Nicardipine/Sodium Chloride (Cardene Ivpb) 20 mg in 200 mls @ 50 mls/hr IV .Q4H PRN; Protocol PRN Reason: PER PROTOCOL Stop: 09/29/25 07:37 Magnesium Sulfate (Magnesium Sulfate Ivpb) 2 gm in 50 mls @ 25 mls/hr IV X1 ONE Stop: 08/30/25 11:43 Last Infusion: 08/30/25 11:53 Dose: Infused Documented By: Admin: 08/30/25 10:00 Dose: 25 mls/hr Documented By: FINA Insulin Human Regular (Insulin Hum Regular 1 Unit/0.01 Ml (Per Unit)) 5 unit IV X1 ONE Stop: 08/30/25 08:09 Last Admin: 08/30/25 08:22 Dose: 5 unit Documented By: JULES Co-signed By: BIGG Morphine Sulfate (Morphine Sulf Inj 4 Mg/Ml Vial) 4 mg IVP X1 ONE Stop: 08/30/25 07:45 Last Admin: 08/30/25 07:49 Dose: 4 mg Documented By: JULES See above Diagnosis Diagnoses ruled out and/or further discussions: Hypertensive urgency Hyperglycemia Vomiting
[2025-08-30 09:00] VITALS: BP 140/91; PULSE 83; RESP 19; TEMP 36.5; O2SAT 95
[2025-08-30] MEDS: Magnesium Sulfate 2 GM Ivpb 2 GM/50 ML BAG IV (10:00)
[2025-08-30 10:30] LABS: Influenza A Ag Negative; Influenza B Ag Negative
[2025-08-30 10:42] VITALS: BP 146/92; PULSE 80; RESP 20; TEMP 36.4; O2SAT 95
== END 2025-08-30 13:18 | disposition home or self-care (01) ==
PROVIDERS: Emergency Provider Emergency Medicine; PCP Nurse Practitioner Family
DX: I16.0 Hypertensive urgency (principal); E11.65 Type 2 diabetes mellitus with hyperglycemia; E11.69 Type 2 diabetes mellitus with other specified complication; E78.5 Hyperlipidemia, unspecified; I10 Essential (primary) hypertension; Z95.5 Presence of coronary angioplasty implant and graft; Z94.1 Heart transplant status; N52.1 Erectile dysfunction due to diseases classified elsewhere; I42.9 Cardiomyopathy, unspecified; I49.3 Ventricular premature depolarization; Z79.84 Long term (current) use of oral hypoglycemic drugs; Z79.85 Long-term (current) use of injectable non-insulin antidiabetic drugs; Z90.89 Acquired absence of other organs
CPT/HCPCS: 36415; 71045; 80053; 83690; 83735; 83880; 84484; 85025; 85610; 85730; 87502; 87811; 93005; 96365; 96366; 96375; 99283; J1815; J2270; J3475

== ENCOUNTER 2025-10-10 18:18 | Emergency (ER) | payer MEDICAID, SELFPAY ==
[2025-10-10 18:19] VITALS: BMI 24.8
[2025-10-10 19:32] VITALS: BP 153/94; PULSE 92; RESP 18; TEMP 36.8; O2SAT 97
--- NOTE | 2025-10-10 19:40 | XR_ITS ---
Examination: Hand, right hand 2 views Technique:: Right hand 2 views AP lateral Date and time: October 10, 20251946 hours INDICATION: Punching injury today to the hand with pain FINDINGS: Acute impacted comminuted fractures base of the fifth metacarpal Acute impacted fracture distal fourth metacarpal No foreign body IMPRESSION: Acute comminuted impacted fractures base fifth metacarpal Acute impacted fracture distal fourth metacarpal
--- NOTE | 2025-10-10 20:38 | PD.EDHAND ---
Upper Extremity Injury RME/HPI General Chief Complaint: Hand/Wrist Problems Stated Complaint: hand pain Time Seen by Provider: 10/10/25 18:35 Arrival date/time: 10/10/25 18:18 This is a case of 30-year-old male with history of anxiety and hypertension came in in the emergency room due to right hand injury history of present illness started 1 hour prior to arrival in the emergency room patient became anxious and punched a metal door sustaining pain and swelling on the right hand patient is not complaining of the right wrist pain no other injury noted patient denies any suicidal or homicidal ideation denies any hallucination Limitations: no limitations Related Data Home Medications ?Medication ?Instructions ?Recorded ?Confirmed clopidogrel 75 mg tablet 75 mg PO QDAY 01/20/24 04/08/25 fenofibrate nanocrystallized 145 145 mg PO DAILY 01/20/24 04/08/25 mg tablet pantoprazole 40 mg tablet,delayed 40 mg PO QDAY 01/20/24 04/08/25 release metformin 500 mg tablet 1,000 mg PO BID 08/13/24 04/08/25 amlodipine 5 mg tablet 5 mg PO QDAY 10/15/24 04/08/25 empagliflozin 25 mg tablet 25 mg PO QAM 10/15/24 04/08/25 (Jardiance) escitalopram oxalate 10 mg tablet 10 mg PO QDAY 10/15/24 04/08/25 tacrolimus 0.5 mg capsule, 2.5 mg PO QDAY 10/15/24 04/08/25 immediate-release famotidine 20 mg tablet 20 mg PO HS 10/21/24 04/08/25 enalapril maleate 10 mg tablet 10 mg PO BID 12/02/24 04/08/25 rosuvastatin 20 mg tablet 20 mg PO QHS 12/02/24 04/08/25 sirolimus 0.5 mg tablet 1 mg PO QDAY 12/02/24 04/08/25 Previous Rx's ?Medication ?Instructions ?Recorded aspirin 81 mg tablet,delayed 81 mg PO QDAY #90 tabs 01/20/24 release cetirizine 10 mg capsule (All Day 10 mg PO QDAY #90 caps 01/20/24 Allergy (cetirizine)) pen needle, diabetic 31 gauge x #1,200 ea 08/13/2401/23 (Comfort EZ Pen [place]) flash glucose scanning reader #1 ea 08/20/24 (FreeStyle Ni 2 [place]) flash glucose sensor (FreeStyle #1 ea 08/20/24 Ni 2 Sensor kit) fluconazole 200 mg tablet 200 mg PO QDAY #90 tabs 10/15/24 semaglutide 2 mg/dose (8 mg/3 mL) 2 mg (0.75 mL) subcut QWEEK #3 mL 10/15/24 subcutaneous pen injector (Ozempic) insulin glargine 100 unit/mL (3 45 unit (0.45 mL) subcut QDAY #15 12/21/24 mL) subcutaneous pen mL insulin regular human 100 unit/mL 1 sliding scale dose subcut 12/21/24 (3 mL) subcutaneous pen USEASDIRECTD #15 mL ibuprofen 800 mg tablet 800 mg PO Q8H PRN pain #20 tabs 10/10/25 Allergies Allergy/AdvReac Type Severity Reaction Status Date / Time No Known Allergies Allergy Verified 08/30/25 07:41 Review of Systems Review of Systems Systems Reviewed: All systems reviewed, normal except as documented Constitutional Constitutional: Reports system reviewed and no additional complaints, except as documented and Reports as per HPI Cardiovascular Cardiovascular: Reports system reviewed and no additional complaints, except as documented and Reports as per HPI Respiratory Respiratory: Reports system reviewed and no additional complaints, except as documented and Reports as per HPI Gastrointestinal Gastrointestinal: Reports system reviewed and no additional complaints, except as documented and Reports as per HPI Musculoskeletal Musculoskeletal: Reports system reviewed and no additional complaints, except as documented and Reports as per HPI Neurologic Neurologic: Reports system reviewed and no additional complaints, except as documented and Reports as per HPI Past Medical History Past Medical History NEUROLOGIC: Negative Neurological Disorders CARDIAC: Positive Cardiac Disorders, Coronary Artery Disease, Congestive Heart Failure, Congenital Heart Disease, Cardiomyopathy and Hypertension RESPIRATORY: Negative Chronic Obstructive Pulmonary Disease (COPD) or Asthma GASTROINTESTINAL: Positive Gastrointestinal Disorders and Ulcer; Negative Hepatitis GENITOURINARY: Negative Genitourinary Disorders or Renal Disease REPRODUCTIVE: Negative Testicular Cancer MUSCULOSKELETAL: Negative Musculoskeletal Disorders ENT: Positive Ear Infection ENDOCRINE: Positive Endocrine Disorders and Diabetes Mellitus Type 2; Negative Diabetes Mellitus Type 1 HEMATOLOGIC: Negative Blood Disorders or Sickle Cell Disease OTHER HISTORY: Positive Hospitalization, Blood Transfusions and Organ Transplant; Negative Autoimmune Disease, Down Syndrome, Developmental Delay, Shingles, Falls, Blood Transfusion Reaction, Anesthesia Reactions, Chemotherapy, Radiation Therapy, Hyperbaric Therapy, MRSA, VRSA, Vancomycin-Resistant Enterococci, Human Immunodeficiency Virus (HIV), Chicken Pox, Measles, Mumps, Rubella ([place] Measles), Pertussis, Clostridium Difficile, Cancer or Testicular Cancer Family History FAMILY HISTORY: Positive Family Cardiac Disorders; Negative Family Psychiatric Problems, Family Respiratory Disorders, Family Gastrointestinal Problems, Family Cancer, Family Surgery or Family Anesthesia Reaction Surgical History SURGICAL: Positive Cardiac Surgery, Open Heart Surgery, Coronary Stent, Ear Surgery, Tonsillectomy and Organ Transplant; Negative Endocrine Surgery, Thyroidectomy, Abdominal Surgery, Nephrectomy, Joint Replacement, Neurologic Surgery or Vasectomy Social History SMOKING STATUS: Never smoker SECOND HAND EXPOSURE: No SUBSTANCE USE: former substance user ED Exam General Limitations: Present no limitations General appearance: Present alert, in no apparent distress and other (Patient is awake alert oriented not in distress nontoxic looking well-hydrated well nouished) Head Head exam: Present atraumatic, normocephalic and normal inspection Eye Eye exam: Present normal appearance, PERRL and EOMI ENT ENT exam: Present normal exam, normal oropharynx and mucous membranes moist Neck Neck exam: Present normal inspection, full ROM and trachea midline; Absent tenderness, meningismus, lymphadenopathy or thyromegaly Chest Chest inspection: Present normal inspection and symmetric chest wall rise; Absent tenderness Respiratory Respiratory exam: Present normal lung sounds bilaterally; Absent respiratory distress, wheezes, stridor, accessory muscle use or prolonged expiratory phase Cardiovascular Cardiovascular exam: Present regular rate, normal rhythm and normal heart sounds; Absent bradycardia, tachycardia, irregular rhythm, systolic murmur or diastolic murmur Abdominal Exam Abdominal exam: Present soft and normal bowel sounds; Absent distention, tenderness, guarding, rebound, rigidity, diminished bowel sounds, hyperactive bowel sounds, hypoactive bowel sounds or organomegaly Extremities Exam Extremities exam: Present normal inspection and full ROM Expanded Upper Extremity Exam Forearm/Wrist exam: Present normal inspection and full ROM; Absent tenderness, swelling, abrasion, laceration, ecchymosis, deformity, crepitus, dislocation, erythema, tenderness over anatomical snuff box or pain with axial thumb loading Hand exam: Present tenderness (Noted moderate tenderness on the lateral dorsal aspect of the right hand with mild swelling no crepitation no deformity no open wound ROM is limited pulses were full and equal capillary refill less than 2 seconds sensory intact no snuffbox tenderness) and swelling; Absent abrasion, laceration, skin avulsion, ecchymosis, deformity, crepitus, dislocation, erythema, amputation, nail avulsion or subungual hematoma Back Exam Back exam: Present normal inspection and full ROM Neurological Exam Neurological exam: Present alert, oriented X3, CN II-XII intact, normal gait and reflexes normal; Absent motor sensory deficit Psychiatric Psychiatric exam: Present normal affect and normal mood Skin Skin exam: Present warm, dry, intact and normal color Course Quality Measures none Orders Category Date Time Status Splint / Immobilizer STAT Care 10/10/25 20:35 Active XR hand RT 2V Stat Exams 10/10/25 19:40 Completed HYDROcodone*/APAP 5/325 [[place] 5/325] Med 10/10/25 20:35 Discontinued 1 tab PO X1 ONE Vital Signs Vital signs: Vital Signs Temperature 98.3 F 10/10/25 19:32 Pulse Rate 92 10/10/25 19:32 Respiratory Rate 18 10/10/25 19:32 Blood Pressure 153/94 H 10/10/25 19:32 Pulse Oximetry (%) 97 10/10/25 19:32 Oxygen Delivery Method Room Air 10/10/25 19:32 Oxygen saturation is 97% in room Extremity Injury MDM Narrative MDM Narrative:: This is a case of 30-year-old male with history of anxiety and hypertension came in in the emergency room due to right hand injury history of present illness started 1 hour prior to arrival in the emergency room patient became anxious and punched a metal door sustaining pain and swelling on the right hand patient is not complaining of the right wrist pain no other injury noted patient denies any suicidal or homicidal ideation denies any hallucination physical examination patient is awake alert oriented not in distress nontoxic looking well-hydrated well nourished patient noted to have moderate tenderness on the lateral dorsal aspect of the right hand with marked swelling ROM is limited crepitation no deformity pulses were full and equal capillary refill less than 2 seconds sensory intact no snuffbox tenderness no open wound wrist exam is normal x-ray showed a displaced fracture on the base of the fifth and fourth metacarpal fracture ulnar gutter splint was applied to the right hand patient tolerated well neurovascular intact patient was advised to follow-up with PCP to be referred to orthopedic surgeon for further evaluation and treatment of metacarpal fracture for any worsening symptoms or any emergent concern return precaution in the ER is advised Patient was discharged with comfortable condition walking with stable gait. Patient verbalized no further complains explained diagnosis and answered patient question. Patient is comfortable with the proposed management plan including the need to follow up with his/her primary care physician and any specialist if applicable Discussed patient for any urgent condition or worsening sx, He/She needed to go to emergency room immediately or call 911. Patient acknowledge the responsibility to follow up as instructed and to monitor her/his symptoms. For any persistence of the symptoms for more than 3-5 days return precaution advised. Discussed the result of the test and was given printed discharge instruction Patient data External records reviewed:: [facility] previous records Clinical information provided by:: patient Social determinants that could affect healthcare access:: none Patient has the following chronic illnesses:: None How is presenting disease/condition affected by chronic disease/condition?: no chronic disease Evaluation data The following diagnostics were reviewed and interpreted by me:: radiology exam(s) Lab and/or radiology exams considered but not ordered:: Reviewed Interpretation Summary: Reviewed Medications / Prescriptions Medications or Prescriptions considered but not ordered:: Given Medication administrations:: Medication Administration History Discontinued Medications Hydrocodone Bitart/Acetaminophen (Hydrocodone/[place] 5/325 Tablet) 1 tab PO X1 ONE Stop: 10/10/25 20:36 Last Admin: 10/10/25 21:46 Dose: 1 tab Documented By: CHAI Given Consultations Consultation(s) initiated? (list below): No Diagnosis Upper Extremity Injury Differential Diagnosis: sprain and strain of wrist, fracture of wrist and fracture of hand Most likely diagnosis given after review of the tests above:: Metacarpal fracture Admission Indicated Admission indicated?: not indicated Explain why admission is indicated or not indicated:: not indicated Admission Request Was there a request for admission?: No Disposition Plan Disposition Plan: Discharge Discharge Attestation Discharge Attestation: The patient and all family members were given an opportunity to ask questions and understood the discharge instructions. Discharge instructions specifically effects, indications for sooner follow up or return to the emergency department, and the expected course of current diagnosis. Patient condition: Stable Discharge Plan Plan Patient Disposition: HOME (Self Care) Patient condition on transfer: Stable Prescriptions/Referrals Prescriptions/Med Rec: New ibuprofen 800 mg tablet 800 mg PO Q8H PRN (Reason: pain) Qty: 20 0RF No Action aspirin 81 mg tablet,delayed release (DR/EC) 81 mg PO QDAY Qty: 90 0RF All Day Allergy (cetirizine) 10 mg capsule 10 mg PO QDAY Qty: 90 0RF fenofibrate nanocrystallized 145 mg tablet 145 mg PO DAILY Patient Comments: TAKE 1 TABLET BY MOUTH DAILY pantoprazole 40 mg tablet,delayed release (DR/EC) 40 mg PO QDAY clopidogrel 75 mg tablet 75 mg PO QDAY tacrolimus 0.5 mg capsule 2.5 mg PO QDAY Rx Instructions: 3CAP QAM 2CAP QHS sirolimus 0.5 mg tablet 1 mg PO QDAY (DME) FreeStyle Ni 2 Sensor Kit See Rx Instructions .Route Qty: 1 0RF Rx Instructions: As directed--CHANGE EVERY 14 DAYS (CHANGED 1 WEEK AGO) (DME) FreeStyle Ni 2 [place] Misc See Rx Instructions .Route Qty: 1 0RF Rx Instructions: As directed Ozempic 2 mg/dose (8 mg/3 mL) pen injector 2 mg subcut QWEEK Qty: 3 3RF Rx Instructions: takes on Fridays fluconazole 200 mg tablet 200 mg PO QDAY Qty: 90 1RF Jardiance 25 mg tablet 25 mg PO QAM amlodipine 5 mg tablet 5 mg PO QDAY escitalopram oxalate 10 mg tablet 10 mg PO QDAY metformin 500 mg tablet 1,000 mg PO BID (DME) pen needle, diabetic [Comfort EZ Pen [place]] 31 gauge x 3/16 needle See Rx Instructions .Route Qty: 1200 0RF Rx Instructions: As directed TID with meals rosuvastatin 20 mg tablet 20 mg PO QHS enalapril maleate 10 mg tablet 10 mg PO BID insulin regular human 100 unit/mL (3 mL) insulin pen 1 sliding scale dose subcut USEASDIRECTD Qty: 15 3RF Rx Instructions: sliding scale with meals insulin glargine 100 unit/mL (3 mL) insulin pen 45 unit subcut QDAY Qty: 15 3RF Rx Instructions: 30UNITS QAM 15UNITS AHS famotidine 20 mg tablet 20 mg PO HS Referrals: Pranay Torres ASPHALT MIXER,Za Andrade NP [Primary Care Provider, Family Practice] - In 1 week Problem List Clinical Impression: Closed fracture of fifth metacarpal bone of right hand, Fracture of fourth metacarpal bone of right hand Patient/Caregiver Discharge Instructions Education Materials: ED Closed Hand Fracture (Adult), ED Splint Care, Fiberglass, ED RICE Additional Instructions: Follow-up with your primary care physician in 2 days for reevaluation and to be referred to orthopedic surgeon for further evaluation and treatment of fifth and fourth metacarpal right hand worsening symptoms or any emergent concerns such as numbness weakness tingling sensation call 911 or go to the nearest emergency room ice pack every 2 hours for 20 minutes for 24 hours then alternate with warm compress elevate to decrease swelling keep the splint in place until cleared by your primary care physician is advsied Print Language: Congolese Stand Alone Forms: Martha Award Info., Patient Portal Info Letter PA/APPLICATION SUPPORT INTERN Supervising Physician PA/APPLICATION SUPPORT INTERN Supervising Physician: Dr Chrystal todd
[2025-10-10] MEDS: HYDROcodone/APAP 5/325 TABLET 1 TAB PO (21:46)
== END 2025-10-10 22:30 | disposition home or self-care (01) ==
PROVIDERS: Emergency Provider Emergency Medicine; PCP Nurse Practitioner Family
DX: S62.316A Displaced fracture of base of fifth metacarpal bone, right hand, initial encounter for closed fracture (principal); S62.304A Unspecified fracture of fourth metacarpal bone, right hand, initial encounter for closed fracture; W22.8XXA Striking against or struck by other objects, initial encounter
CPT/HCPCS: 29125; 73120; 99283; A9270

== ENCOUNTER → 2025-10-13 | Outpatient (BNVA) | payer MEDICAID, SELFPAY | END | disposition home or self-care (01) | PROVIDERS: PCP Nurse Practitioner Primary Care; Referring Provider Nurse Practitioner Primary Care; Visit Provider Nurse Practitioner Primary Care | DX: S62.324D Displaced fracture of shaft of fourth metacarpal bone, right hand, subsequent encounter for fracture with routine healing (principal); X58.XXXD Exposure to other specified factors, subsequent encounter; S62.346D Nondisplaced fracture of base of fifth metacarpal bone, right hand, subsequent encounter for fracture with routine healing | CPT/HCPCS: 99215 ==

== ENCOUNTER → 2025-10-14 | Outpatient (BNVA) | payer MEDICAID, SELFPAY | END | disposition home or self-care (01) | PROVIDERS: PCP Internal Medicine; Referring Provider Internal Medicine; Visit Provider Internal Medicine | DX: E10.22 Type 1 diabetes mellitus with diabetic chronic kidney disease (principal); I12.9 Hypertensive chronic kidney disease with stage 1 through stage 4 chronic kidney disease, or unspecified chronic kidney disease; N18.31 Chronic kidney disease, stage 3a; F32.1 Major depressive disorder, single episode, moderate; S62.324D Displaced fracture of shaft of fourth metacarpal bone, right hand, subsequent encounter for fracture with routine healing; X58.XXXD Exposure to other specified factors, subsequent encounter; Z94.1 Heart transplant status; E78.5 Hyperlipidemia, unspecified; R80.9 Proteinuria, unspecified; E10.65 Type 1 diabetes mellitus with hyperglycemia | CPT/HCPCS: 99214 ==

== ENCOUNTER → 2025-10-20 | Outpatient (BNVA) | payer MEDICAID, SELFPAY | END | disposition home or self-care (01) | PROVIDERS: PCP Nurse Practitioner Primary Care; Referring Provider Nurse Practitioner Primary Care; Visit Provider Nurse Practitioner Primary Care | DX: S62.339D Displaced fracture of neck of unspecified metacarpal bone, subsequent encounter for fracture with routine healing (principal); X58.XXXD Exposure to other specified factors, subsequent encounter; S62.324D Displaced fracture of shaft of fourth metacarpal bone, right hand, subsequent encounter for fracture with routine healing; S62.346D Nondisplaced fracture of base of fifth metacarpal bone, right hand, subsequent encounter for fracture with routine healing | CPT/HCPCS: 99212; G0463 ==

== ENCOUNTER 2025-10-22 10:15 | Inpatient (IN) | payer MEDICAID, SELFPAY ==
[2025-10-22] VITALS (38 sets, daily range): BP systolic 121–177; BP diastolic 79–117; PULSE 96–152; RESP 14–100; TEMP 36.4–36.9; O2SAT 94–100; BMI 24.8
--- NOTE | 2025-10-22 10:21 | EKG_ITS ---
[facility] Test Date: 2025-10-22 Pat Name: FIDEL WOLF Department: Room: - Gender: Male Rn Gynecology: : 1995 Requested By: Mehreen Childress Order Number: [id number] Reading MD: Mehreen Childress Measurements Intervals [place] Rate: 119 P: -69 NC: 135 QRS: -27 QRSD: 93 T: 75 QT: 372 QTc: 525 Interpretive Statements JUNCTIONAL TACHYCARDIA SEPTAL MYOCARDIAL INFARCTION , OF INDETERMINATE AGE [40+ ms Q WAVE IN V1/V2] Compared to ECG 08/30/2025 07:42:52 Junctional tachycardia now present Sinus rhythm no longer present Myocardial infarct finding still present /store/S0/[id number].pdf
--- NOTE | 2025-10-22 10:27 | PC.NURSE ---
Patient to er via ems from home with c/o abd. 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
--- NOTE | 2025-10-22 10:58 | PD.EDNV ---
Nausea/Vomit./Diarrhea-RME/HPI General Chief complaint: Nausea/Vomiting/Diarrhea Stated complaint: N/V Time Seen by Provider: 10/22/25 11:06 Arrival date/time: 10/22/25 10:15 RME / HPI RME / HPI Narrative: 30-year-old male patient with a history of heart transplant at [facility] at age 6, DM II poorly controlled, HTN, CKD III secondary to DM and HTN complaining of epigastric abdominal pain, vomiting, 1 episode of loose stool, sharp intermittent chest pains, shortness of breath starting this morning. States he also has history of cardiac stents x 3 done at [facility]. Related Data Home Medications ?Medication ?Instructions ?Recorded ?Confirmed clopidogrel 75 mg tablet 75 mg PO QDAY 01/20/24 10/23/25 fenofibrate nanocrystallized 145 145 mg PO DAILY 01/20/24 10/23/25 mg tablet pantoprazole 40 mg tablet,delayed 40 mg PO QDAY 01/20/24 10/23/25 release amlodipine 5 mg tablet 5 mg PO QDAY 10/15/24 10/23/25 escitalopram oxalate 10 mg tablet 10 mg PO QDAY 10/15/24 10/23/25 tacrolimus 0.5 mg capsule, 2.5 mg PO QDAY 10/15/24 10/23/25 immediate-release famotidine 20 mg tablet 20 mg PO HS 10/21/24 10/23/25 enalapril maleate 10 mg tablet 10 mg PO BID 12/02/24 10/23/25 rosuvastatin 20 mg tablet 20 mg PO QHS 12/02/24 10/23/25 sirolimus 0.5 mg tablet 1 mg PO QDAY 12/02/24 10/23/25 Previous Rx's ?Medication ?Instructions ?Recorded aspirin 81 mg tablet,delayed 81 mg PO QDAY #90 tabs 01/20/24 release cetirizine 10 mg capsule (All Day 10 mg PO QDAY #90 caps 01/20/24 Allergy (cetirizine)) flash glucose scanning reader #1 ea 08/20/24 (FreeStyle Ni 2 [place]) flash glucose sensor (FreeStyle #1 ea 08/20/24 Ni 2 Sensor kit) insulin glargine 100 unit/mL (3 45 unit (0.45 mL) subcut QDAY #15 12/21/24 mL) subcutaneous pen mL insulin regular human 100 unit/mL 1 sliding scale dose subcut 12/21/24 (3 mL) subcutaneous pen USEASDIRECTD #15 mL pen needle, diabetic 31 gauge x #1,200 ea 10/17/25 3/16 fluconazole 200 mg tablet See Rx Instructions .Route 10/19/25 .COMPLEX #90 tabs tramadol 50 mg tablet 50 mg PO Q12H PRN pain #14 tabs 10/20/25 Allergies Allergy/AdvReac Type Severity Reaction Status Date / Time No Known Allergies Allergy Verified 10/20/25 15:39 Course Quality Measures none Orders Category Date Time Status Bedside Blood Glucose NOW Care 10/22/25 11:05 Completed Bedside COVID-19 Antigen Test NOW Care 10/22/25 10:45 Completed Bedside Influenza A&B Antigen Test NOW Care 10/22/25 10:[address] Screening NOW Care 10/22/25 12:58 Completed Volleyball Player NOW Care 10/22/25 10:59 Completed Volleyball Player Q4H START 00 Care 10/22/25 10:27 Completed EKG (ED ONLY) *Do not use* NOW Care 10/22/25 10:21 Completed EKG (ED ONLY) *Do not use* NOW Care 10/22/25 11:[address] abdomen pelvis wo con Stat Exams 10/22/25 12:57 Completed EKG (ED Only) Stat Exams 10/22/25 10:21 Draft EKG (ED Only) Stat Exams 10/22/25 11:43 Draft XR chest 1V portable Stat Exams 10/22/25 10:59 Completed A1C [Glycohemoglobin w (eAG)] Stat Lab 10/22/25 11:33 Completed ABG [Arterial Blood Gas] Stat Lab 10/22/25 14:26 Completed Alcohol, Blood Medical Stat Lab 10/22/25 11:33 Completed B-Type Natriuretic Peptide Stat Lab 10/22/25 11:33 Completed Beta Hydroxybutyrate Stat Lab 10/22/25 14:06 Completed Blood Culture (Lab) Stat Lab 10/22/25 12:40 Completed CBC Stat Lab 10/22/25 11:33 Completed Comprehensive Metabolic Panel Stat Lab 10/22/25 11:33 Completed Drug Screen,Urine Stat Lab 10/22/25 19:18 Completed Lactate (Lactic Acid) Stat Lab 10/22/25 12:40 Completed Lipase Stat Lab 10/22/25 11:33 Completed Magnesium Stat Lab 10/22/25 11:33 Completed Procalcitonin Stat Lab 10/22/25 12:40 Completed Troponin I Stat Lab 10/22/25 11:33 Completed UA, C/S IF [Urinalysis, C/S if Indicated] Stat Lab 10/22/25 19:18 Completed Diltiazem Inj [Cardizem Inj] Med 10/22/25 13:13 Discontinued 15 mg IV X1 ONE Insulin Regular Med 10/22/25 11:25 Discontinued 5 unit IV X1 ONE Morphine* Inj Med 10/22/25 10:59 Discontinued 4 mg IVP X1 ONE Ondansetron Inj [Zofran Inj] Med 10/22/25 10:59 Discontinued 4 mg IVP X1 ONE POTASSIUM CHL 10 mEq IVPB [Kcl Ivpb] Med 10/22/25 13:02 Discontinued 10 meq in 100 ml IV Q1H Sodium Chloride 0.9% 1000 ml [Ns] 1,000 ml Med 10/22/25 11:00 Discontinued IV 999 mls/hr Sodium Chloride 0.9% 1000 ml [Ns] 1,000 ml Med 10/22/25 13:07 Discontinued IV 999 mls/hr Sodium Chloride 0.9% 1000 ml [Ns] 1,000 ml Med 10/22/25 14:08 Discontinued IV 999 mls/hr cefTRIAXone/D5w 1gm IV premix [Rocephin/D5w 1gm IV Med 10/22/25 12:56 Discontinued premix] 1 gm in 50 ml IV X1 Vital Signs Vital signs: Vital Signs Temperature 97.9 F 10/22/25 10:23 Pulse Rate 128 H 10/22/25 10:23 Respiratory Rate 28 H 10/22/25 10:23 Blood Pressure 150/85 H 10/22/25 10:23 Pulse Oximetry (%) 99 10/22/25 10:23 Oxygen Delivery Method Room Air 10/22/25 10:23 Nausea/Vomiting/Diarrhea Patient data External records reviewed:: [facility] previous records Clinical information provided by:: patient and EMS Social determinants that could affect healthcare access:: none Patient has the following chronic illnesses:: DM How is presenting disease/condition affected by chronic disease/condition?: caused by Evaluation data The following diagnostics were reviewed and interpreted by me:: lab results, radiology exam(s) and EKG tracing(s) Lab and/or radiology exams considered but not ordered:: none Interpretation Summary: DKA Medications / Prescriptions Medications / Prescriptions considered but not ordered:: none Medication administrations:: Medication Administration History Discontinued Medications Acetaminophen (Acetaminophen 325 Mg Tablet) 650 mg PO Q4HR PRN PRN Reason: PAIN SCALE 1-3 (mild Stop: 11/21/25 15:00 Last Admin: 10/25/25 16:44 Dose: 650 mg Documented By: Admin: 10/23/25 21:12 Dose: 650 mg Documented By: Admin: 10/23/25 14:44 Dose: 650 mg Documented By: BIA Al Hydrox/Mg Hydrox/Simethicone (Mg Hyd/Al Hyd/Roger (Maalox Reg) Susp 30 Ml Udc) 30 ml PO X1 ONE Stop: 10/22/25 17:27 Last Admin: 10/22/25 17:38 Dose: 30 ml Documented By: BIGG Al Hydrox/Mg Hydrox/Simethicone (Mg Hyd/Al Hyd/Roger (Maalox Reg) Susp 30 Ml Udc) 30 ml PO X1 ONE Stop: 10/23/25 12:10 Last Admin: 10/23/25 12:15 Dose: 30 ml Documented By: BIA Al Hydrox/Mg Hydrox/Simethicone (Mg Hyd/Al Hyd/Roger (Maalox Reg) Susp 30 Ml Udc) 30 ml PO X1 ONE Stop: 10/23/25 16:25 Last Admin: 10/23/25 16:37 Dose: 30 ml Documented By: BIA Al Hydrox/Mg Hydrox/Simethicone (Mg Hyd/Al Hyd/Roger (Maalox Reg) Susp 30 Ml Udc) 30 ml PO X1 ONE Stop: 10/23/25 20:29 Last Admin: 10/23/25 21:07 Dose: 30 ml Documented By: DOMINIK Amlodipine Besylate (Amlodipine Besylate 5 Mg Tablet) 10 mg PO QDAY DYLON Stop: 11/21/25 17:14 Last Admin: 10/27/25 09:22 Dose: 10 mg Documented By: Admin: 10/26/25 09:35 Dose: 10 mg Documented By: Admin: 10/25/25 09:38 Dose: 10 mg Documented By: Admin: 10/24/25 09:20 Dose: 10 mg Documented By: Admin: 10/23/25 08:42 Dose: 10 mg Documented By: Admin: 10/22/25 17:29 Dose: 10 mg Documented By: BIGG Aspirin (Aspirin Ec 81 Mg Tabec) 81 mg PO QDAY [facility] Stop: 11/21/25 17:14 Last Admin: 10/27/25 09:22 Dose: 81 mg Documented By: Admin: 10/26/25 09:35 Dose: 81 mg Documented By: Admin: 10/25/25 09:38 Dose: 81 mg Documented By: Admin: 10/24/25 09:20 Dose: 81 mg Documented By: Admin: 10/23/25 08:42 Dose: 81 mg Documented By: Admin: 10/22/25 17:29 Dose: 81 mg Documented By: BIGG Atorvastatin Calcium (Atorvastatin Calcium 20 Mg Tablet) 40 mg PO HS [facility] Stop: 11/21/25 20:59 Last Admin: 10/26/25 21:17 Dose: 40 mg Documented By: Admin: 10/25/25 21:25 Dose: 40 mg Documented By: Admin: 10/24/25 20:57 Dose: 40 mg Documented By: JOSE ELIAS Admin: 10/23/25 21:08 Dose: 40 mg Documented By: Admin: 10/22/25 20:31 Dose: 40 mg Documented By: EARL Calcium Carbonate (Calcium Carbonate 600 Mg Tablet) 600 mg PO X1 ONE Stop: 10/22/25 23:23 Last Admin: 10/22/25 23:32 Dose: 600 mg Documented By: DOMINIK Calcium Carbonate (Calcium Carbonate 600 Mg Tablet) 600 mg PO X1 ONE Stop: 10/24/25 02:08 Last Admin: 10/24/25 02:14 Dose: 600 mg Documented By: Calcium Carbonate (Calcium Carbonate 600 Mg Tablet) 600 mg PO X1 ONE Stop: 10/24/25 23:32 Last Admin: 10/25/25 00:00 Dose: 600 mg Documented By: JOSE ELIAS Clopidogrel Bisulfate (Clopidogrel Bisulfate 75 Mg Tablet) 75 mg PO QDAY [facility] Stop: 11/21/25 17:14 Last Admin: 10/27/25 09:21 Dose: 75 mg Documented By: Admin: 10/26/25 09:35 Dose: 75 mg Documented By: Admin: 10/25/25 09:38 Dose: 75 mg Documented By: Admin: 10/24/25 09:20 Dose: 75 mg Documented By: Admin: 10/23/25 08:42 Dose: 75 mg Documented By: Admin: 10/22/25 17:29 Dose: 75 mg Documented By: BIGG Sirolimus 0.5 Mg (Tablet) 0 ea PO QD DYLON Stop: 11/22/25 08:59 Last Admin: 10/27/25 09:23 Dose: 2 tablet Documented By: Admin: 10/26/25 09:38 Dose: 2 tablet Documented By: Admin: 10/25/25 09:43 Dose: 2 tablet Documented By: Admin: 10/24/25 09:23 Dose: 2 tablet Documented By: Admin: 10/23/25 08:41 Dose: 2 tablet Documented By: BIA Dextrose (Dextrose 50%-Water Inj 50 Ml Syringe) 25 ml IV [id number] PRN PRN Reason: Blood Sugar - Low Dextrose (Dextrose 50%-Water Inj 50 Ml Syringe) 25 ml IV Q15MIN PRN PRN Reason: BG 50-70 responsive npo pt Stop: 11/22/25 04:09 Dextrose (Dextrose 50%-Water Inj 50 Ml Syringe) 50 ml IV Q15MIN PRN PRN Reason: BG <50 OR BG <70 & pt unresponsive Stop: 11/22/25 04:09 Diltiazem HCl (Diltiazem Inj 5 Mg/Ml Vial 5 Ml) 15 mg IV X1 ONE Stop: 10/22/25 13:14 Last Admin: 10/22/25 13:23 Dose: 15 mg Documented By: BIGG Diphenhydramine HCl (Diphenhydramine 25 Mg Capsule) 25 mg PO X1 ONE Stop: 10/24/25 01:07 Last Admin: 10/24/25 01:14 Dose: 25 mg Documented By: Docusate Sodium (Docusate Sod 100 Mg Capsule) 100 mg PO QDAY PRN; Protocol PRN Reason: CONSTIPATION Stop: 11/23/25 09:20 Last Admin: 10/24/25 09:58 Dose: 100 mg Documented By: Escitalopram Oxalate (Escitalopram Oxalate 10 Mg Tablet) 10 mg PO QDAY DYLON Stop: 11/22/25 08:59 Escitalopram Oxalate (Escitalopram Oxalate 10 Mg Tablet) 10 mg PO QDAY DYLON Stop: 11/22/25 07:59 Last Admin: 10/27/25 09:21 Dose: 10 mg Documented By: Admin: 10/26/25 09:36 Dose: 10 mg Documented By: Admin: 10/25/25 09:38 Dose: 10 mg Documented By: Admin: 10/24/25 09:20 Dose: 10 mg Documented By: Admin: 10/23/25 08:07 Dose: Not Given Documented By: BIA Non-Admin Reason: Duplicate Medication on eMAR Admin: 10/23/25 07:50 Dose: 10 mg Documented By: BIA Famotidine (Famotidine 20 Mg Tablet) 20 mg PO X1 ONE Stop: 10/23/25 14:55 Last Admin: 10/23/25 15:12 Dose: 20 mg Documented By: BIA Fenofibrate (Fenofibrate 145 Mg Tablet (Non-Formulary)) 145 mg PO QDAY [facility] Stop: 11/21/25 17:14 Last Admin: 10/27/25 09:23 Dose: 145 mg Documented By: Admin: 10/26/25 09:36 Dose: 145 mg Documented By: Admin: 10/25/25 09:39 Dose: 145 mg Documented By: Admin: 10/24/25 09:23 Dose: 145 mg Documented By: Admin: 10/23/25 09:52 Dose: 145 mg Documented By: Admin: 10/22/25 17:39 Dose: 145 mg Documented By: BIGG Fluconazole (Fluconazole 100 Mg Tablet) 200 mg PO QDAY DYLON Stop: 10/29/25 17:14 Last Admin: 10/27/25 09:22 Dose: 200 mg Documented By: Admin: 10/26/25 09:35 Dose: 200 mg Documented By: Admin: 10/25/25 09:38 Dose: 200 mg Documented By: Admin: 10/24/25 09:20 Dose: 200 mg Documented By: Admin: 10/23/25 08:42 Dose: 200 mg Documented By: Admin: 10/22/25 17:39 Dose: 200 mg Documented By: BIGG Glucagon (Glucagon Inj 1 Mg Vial) 1 mg IM Q15MIN PRN PRN Reason: BG <70, and no IV access Heparin Sodium (Porcine) (Heparin Sod Inj 5000 Unit/Ml Vial) 5,000 unit SC Q12HR DYLON Stop: 11/06/25 20:59 Last Admin: 10/27/25 09:21 Dose: 5,000 unit Documented By: BIA Co-signed By: GE Admin: 10/26/25 21:17 Dose: 5,000 unit Documented By: DOMINIK Co-signed By: WILI Admin: 10/26/25 09:39 Dose: 5,000 unit Documented By: FERNANDA Co-signed By: ANGIE Admin: 10/25/25 21:18 Dose: 5,000 unit Documented By: GENI Co-signed By: ANDREZ Admin: 10/25/25 09:41 Dose: 5,000 unit Documented By: VL Co-signed By: ANGIE Admin: 10/24/25 20:57 Dose: 5,000 unit Documented By: RC Co-signed By: HV Admin: 10/24/25 09:21 Dose: 5,000 unit Documented By: Co-signed By: Admin: 10/23/25 21:08 Dose: 5,000 unit Documented By: DOMINIK Co-signed By: GENI Hydroxyzine HCl (Hydroxyzine Hcl 25 Mg Tablet) 25 mg PO X1 ONE Stop: 10/23/25 00:32 Last Admin: 10/23/25 00:45 Dose: 25 mg Documented By: DOMINIK Hyoscyamine (Hyoscyamine Sulf 0.125 Mg Tab.Subl) 0.25 mg PO X1 ONE Stop: 10/24/25 14:48 Last Admin: 10/24/25 14:58 Dose: 0.25 mg Documented By: MG Sodium Chloride (Ns) 1,000 mls @ 999 mls/hr IV .Q1H1M ONE Stop: 10/22/25 12:00 Last Infusion: 10/22/25 12:29 Dose: Infused Documented By: Admin: 10/22/25 11:17 Dose: 999 mls/hr Documented By: BIGG Ceftriaxone Sodium/Dextrose (Rocephin/D5w 1gm Iv Premix) 1 gm in 50 mls @ 100 mls/hr IV X1 ONE Stop: 10/22/25 13:25 Last Infusion: 10/22/25 13:35 Dose: Infused Documented By: Admin: 10/22/25 13:00 Dose: 100 mls/hr Documented By: BIGG Potassium Chloride (Kcl Ivpb) 10 meq in 100 mls @ 100 mls/hr IV Q1H DYLON Stop: 10/22/25 17:01 Last Admin: 10/22/25 17:11 Dose: Not Given Documented By: BIGG Non-Admin Reason: Cancelled by Provider Infusion: 10/22/25 17:09 Dose: Infused Documented By: Admin: 10/22/25 16:08 Dose: 100 mls/hr Documented By: Infusion: 10/22/25 16:08 Dose: Infused Documented By: Admin: 10/22/25 15:09 Dose: 100 mls/hr Documented By: Infusion: 10/22/25 14:32 Dose: Infused Documented By: Admin: 10/22/25 13:24 Dose: 100 mls/hr Documented By: BIGG Sodium Chloride (Ns) 1,000 mls @ 999 mls/hr IV .Q1H1M ONE Stop: 10/22/25 14:07 Last Infusion: 10/22/25 14:30 Dose: Infused Documented By: Admin: 10/22/25 13:23 Dose: 999 mls/hr Documented By: BIGG Sodium Chloride (Ns) 1,000 mls @ 999 mls/hr IV .Q1H1M ONE Stop: 10/22/25 15:08 Last Infusion: 10/22/25 16:19 Dose: Infused Documented By: Admin: 10/22/25 15:09 Dose: 999 mls/hr Documented By: BIGG Potassium Chloride 20 meq/ (Dextrose/Lactated Ringer's) 1,010 mls @ 250 mls/hr IV .Q4H3M PRN PRN Reason: K LEVEL 3.3 TO 5.3 mM/L Stop: 11/21/25 15:00 Last Admin: 10/22/25 19:31 Dose: 250 mls/hr Documented By: SEBASTIAN Potassium Chloride 40 meq/ (Dextrose/Lactated Ringer's) 1,020 mls @ 250 mls/hr IV .Q4H5M PRN PRN Reason: K LEVEL < 3.3mM/L Stop: 11/21/25 15:00 Last Infusion: 10/23/25 05:30 Dose: 0 mls/hr Documented By: Admin: 10/23/25 04:01 Dose: 250 mls/hr Documented By: Infusion: 10/23/25 04:01 Dose: Infused Documented By: Admin: 10/22/25 23:49 Dose: 250 mls/hr Documented By: DOMINIK Potassium Chloride (Kcl Ivpb) 10 meq in 100 mls @ 100 mls/hr IV .Q1H PRN PRN Reason: IF POTASSIUM LESS THAN 3.3 Stop: 11/21/25 15:00 Magnesium Sulfate (Magnesium Sulfate Ivpb) 2 gm in 50 mls @ 25 mls/hr IV .Q2H PRN PRN Reason: PER DKA PROTOCOL Stop: 11/21/25 15:00 Last Infusion: 10/23/25 02:48 Dose: Infused Documented By: Admin: 10/23/25 00:39 Dose: 25 mls/hr Documented By: DOMINIK Insulin Human Regular 100 unit (/ Sodium Chloride) 100 mls @ 8.301 mls/hr IV .Q12H3M PRN; Protocol PRN Reason: PER PROTOCOL Stop: 11/21/25 15:00 Last Titration: 10/23/25 05:30 Dose: 0 unit/kg/hr, 0 mls/hr Documented By: DOMINIK Co-signed By: Titration: 10/23/25 05:00 Dose: 0.05 unit/kg/hr, 4.15 mls/hr Documented By: DOMINIK Co-signed By: Titration: 10/23/25 04:00 Dose: 0.025 unit/kg/hr, 2.075 mls/hr Documented By: DOMINIK Co-signed By: AD Titration: 10/23/25 03:00 Dose: 0.025 unit/kg/hr, 2.075 mls/hr Documented By: DOMINIK Co-signed By: AD Titration: 10/23/25 02:00 Dose: 0.05 unit/kg/hr, 4.15 mls/hr Documented By: DOMINIK Co-signed By: AD Titration: 10/23/25 01:00 Dose: 0.025 unit/kg/hr, 2.075 mls/hr Documented By: DOMINIK Co-signed By: Titration: 10/23/25 00:00 Dose: 0.025 unit/kg/hr, 2.075 mls/hr Documented By: DOMINIK Co-signed By: Titration: 10/22/25 23:00 Dose: 0.05 unit/kg/hr, 4.15 mls/hr Documented By: DOMINIK Co-signed By: AD Titration: 10/22/25 22:24 Dose: 0.05 unit/kg/hr, 4.15 mls/hr Documented By: DOMINIK Co-signed By: AD Titration: 10/22/25 21:41 Dose: 0.05 unit/kg/hr, 4.15 mls/hr Documented By: EARL Co-signed By: SM Titration: 10/22/25 20:31 Dose: 0.05 unit/kg/hr, 4.15 mls/hr Documented By: EARL Co-signed By: CB Titration: 10/22/25 19:29 Dose: 0.025 unit/kg/hr, 2.075 mls/hr Documented By: SEBASTIAN Co-signed By: EARL Titration: 10/22/25 18:30 Dose: 0.05 unit/kg/hr, 4.15 mls/hr Documented By: BIGG Co-signed By: AA Titration: 10/22/25 17:30 Dose: 0.1 unit/kg/hr, 8.301 mls/hr Documented By: BIGG Co-signed By: BD Titration: 10/22/25 16:30 Dose: 0.1 unit/kg/hr, 8.301 mls/hr Documented By: BIGG Co-signed By: DEE DEE Admin: 10/22/25 15:38 Dose: 0.1 unit/kg/hr, 8.301 mls/hr Documented By: BIGG Co-signed By: CS Dextrose/Lactated Ringer's (D5-Lr) 1,000 mls @ 250 mls/hr IV .Q4H PRN PRN Reason: PER PROTOCOL Stop: 11/21/25 15:00 Lactated Ringer's (Lactated Ringers) 1,000 mls @ 250 mls/hr IV .Q4H PRN PRN Reason: PER PROTOCOL Stop: 10/23/25 15:00 Potassium Chloride 20 meq/ (Lactated Ringer's) 1,010 mls @ 250 mls/hr IV .Q4H3M PRN PRN Reason: K LEVEL 3.3 TO 5.3mM/L Stop: 11/21/25 15:00 Potassium Chloride 40 meq/ (Lactated Ringer's) 1,020 mls @ 250 mls/hr IV .Q4H5M PRN PRN Reason: K LEVEL < 3.3 mM/L Stop: 11/21/25 15:00 Potassium Chloride (Kcl Ivpb) 10 meq in 100 mls @ 50 mls/hr IV PRN PRN PRN Reason: K LEVEL 3.3 to 5.3 & BG > 200 Stop: 11/21/25 15:00 Potassium Phosphate (Pot Phos 15 Mmol In Ns 250 Ml) 15 mmol in 250 mls @ 62.5 mls/hr IV PRN PRN PRN Reason: Phosphate <= 1mg/dL Stop: 11/21/25 15:00 Sodium Phosphate 15 mmol/ (Sodium Chloride) 255 mls @ 62.5 mls/hr IV .Q4H5M PRN PRN Reason: Phosphate <= 1mg/dL and K> than 5.3 Stop: 11/21/25 15:00 Lactated Ringer's (Lactated Ringers) 1,000 mls @ 999 mls/hr IV .Q1H1M ONE Stop: 10/22/25 17:01 Last Infusion: 10/22/25 18:10 Dose: Infused Documented By: Admin: 10/22/25 16:09 Dose: 999 mls/hr Documented By: BIGG Potassium Chloride (Kcl Ivpb) 10 meq in 100 mls @ 125 mls/hr IV Q1H DYLON Stop: 10/22/25 17:07 Last Admin: 10/22/25 16:38 Dose: Not Given Documented By: BIGG Non-Admin Reason: Cancelled by Provider Potassium Chloride (Kcl Ivpb) 10 meq in 100 mls @ 100 mls/hr IV Q1H DYLON Stop: 10/22/25 17:19 Last Infusion: 10/22/25 19:37 Dose: Infused Documented By: Admin: 10/22/25 17:12 Dose: 100 mls/hr Documented By: BIGG Lactated Ringer's (Lactated Ringers) 1,000 mls @ 100 mls/hr IV .Q10H DYLON Stop: 10/25/25 05:15 Last Admin: 10/23/25 05:35 Dose: 100 mls/hr Documented By: DOMINIK Magnesium Sulfate (Magnesium Sulfate Ivpb) 4 gm in 50 mls @ 12.5 mls/hr IV X1 ONE Stop: 10/23/25 10:38 Last Admin: 10/23/25 07:22 Dose: Not Given Documented By: BIA Non-Admin Reason: Cancelled by Provider Dextrose/Lactated Ringer's (D5-Lr) 1,000 mls @ 100 mls/hr IV .Q10H DYLON Stop: 10/23/25 18:44 Last Admin: 10/23/25 09:02 Dose: 100 mls/hr Documented By: BIA Lactated Ringer's (Lactated Ringers) 1,000 mls @ 999 mls/hr IV .Q1H1M ONE Stop: 10/23/25 19:53 Last Admin: 10/23/25 19:57 Dose: 999 mls/hr Documented By: DOMINIK Comments: assisting with code blue in other room Lactated Ringer's (Lactated Ringers) 1,000 mls @ 999 mls/hr IV .Q1H1M ONE Stop: 10/24/25 00:02 Last Admin: 10/24/25 07:08 Dose: Not Given Documented By: MG Non-Admin Reason: Discontinued Sodium Chloride (Ns) 2,000 mls @ 999 mls/hr IV .Q2H1M ONE Stop: 10/24/25 01:14 Last Infusion: 10/24/25 01:21 Dose: Infused Documented By: Admin: 10/23/25 23:19 Dose: 999 mls/hr Documented By: Lactated Ringer's (Lactated Ringers) 1,000 mls @ 999 mls/hr IV .Q1H1M ONE Stop: 10/24/25 08:37 Last Admin: 10/24/25 09:12 Dose: 999 mls/hr Documented By: MG Magnesium Sulfate (Magnesium Sulfate Ivpb) 4 gm in 50 mls @ 12.5 mls/hr IV X1 ONE Stop: 10/26/25 11:59 Last Admin: 10/26/25 09:34 Dose: 12.5 mls/hr Documented By: FERNANDA Insulin Degludec (Insulin Degludec 5 Unit/0.05 Ml (Per 5 Units)) 36 unit SC QDAY DYLON Stop: 11/22/25 04:09 Last Admin: 10/23/25 04:25 Dose: 36 unit Documented By: DOMINIK Co-signed By: RADHA Insulin Degludec (Insulin Degludec 5 Unit/0.05 Ml (Per 5 Units)) 10 unit SC X1 ONE Stop: 10/23/25 23:04 Last Admin: 10/23/25 23:25 Dose: 10 unit Documented By: Co-signed By: GENI Insulin Degludec (Insulin Degludec 5 Unit/0.05 Ml (Per 5 Units)) 40 unit SC QDAY [facility] Stop: 11/23/25 08:59 Insulin Degludec (Insulin Degludec 5 Unit/0.05 Ml (Per 5 Units)) 45 unit SC QDAY [facility] Stop: 11/23/25 08:59 Last Admin: 10/24/25 09:35 Dose: Not Given Documented By: Non-Admin Reason: Discontinued Insulin Degludec (Insulin Degludec 5 Unit/0.05 Ml (Per 5 Units)) 40 unit SC QDAY [facility] Stop: 11/23/25 09:29 Last Admin: 10/26/25 09:39 Dose: 40 unit Documented By: FERNANDA Co-signed By: ANGIE Admin: 10/25/25 09:52 Dose: 40 unit Documented By: PPEE Co-signed By: ANGIE Admin: 10/24/25 09:32 Dose: 40 unit Documented By: Co-signed By: BIA Insulin Degludec (Insulin Degludec 5 Unit/0.05 Ml (Per 5 Units)) 45 unit SC QDAY [facility] Stop: 11/26/25 08:59 Last Admin: 10/27/25 08:08 Dose: 45 unit Documented By: BIA Co-signed By: MR Insulin Human Lispro (Insulin Lispro (Admelog) 1 Unit/0.01 Ml Unit) 0 unit SC [facility]; Protocol Stop: 11/22/25 07:29 Last Admin: 10/23/25 17:06 Dose: 3 unit Documented By: BIA Co-signed By: HI Admin: 10/23/25 11:34 Dose: 3 unit Documented By: BIA Co-signed By: LISA Admin: 10/23/25 07:27 Dose: Not Given Documented By: BIA Non-Admin Reason: Per Protocol Insulin Human Lispro (Insulin Lispro (Admelog) 1 Unit/0.01 Ml Unit) 0 unit SC [facility]; Protocol Stop: 11/22/25 20:59 Last Admin: 10/27/25 12:11 Dose: 3 unit Documented By: BIA Co-signed By: VIVIAN Admin: 10/27/25 07:48 Dose: Not Given Documented By: BIA Non-Admin Reason: Per Protocol Admin: 10/26/25 21:17 Dose: 3 unit Documented By: DOMINIK Co-signed By: WILI Admin: 10/26/25 17:36 Dose: 2 unit Documented By: FERNANDA Co-signed By: AG Admin: 10/26/25 12:21 Dose: 3 unit Documented By: FERNANDA Co-signed By: Admin: 10/26/25 07:46 Dose: Not Given Documented By: FERNANDA Non-Admin Reason: Per Protocol Admin: 10/25/25 21:28 Dose: 3 unit Documented By: GENI Co-signed By: ANDREZ Admin: 10/25/25 16:43 Dose: Not Given Documented By: VL Non-Admin Reason: Per Protocol Admin: 10/25/25 11:30 Dose: Not Given Documented By: VL Non-Admin Reason: Per Protocol Admin: 10/25/25 07:30 Dose: Not Given Documented By: VL Non-Admin Reason: Per Protocol Admin: 10/24/25 21:05 Dose: Not Given Documented By: RC Non-Admin Reason: Per Protocol Admin: 10/24/25 18:34 Dose: Not Given Documented By: MG Non-Admin Reason: BG 145 Admin: 10/24/25 11:42 Dose: Not Given Documented By: MG Non-Admin Reason: BG 170 Admin: 10/24/25 09:15 Dose: 2 unit Documented By: Co-signed By: Admin: 10/23/25 21:11 Dose: 2 unit Documented By: DOMINIK Co-signed By: GENI Insulin Human Regular (Insulin Hum Regular 1 Unit/0.01 Ml (Per Unit)) 5 unit IV X1 ONE Stop: 10/22/25 11:26 Last Admin: 10/22/25 11:49 Dose: 5 unit Documented By: BIGG Co-signed By: CS Lidocaine HCl (Lidocaine Viscous 2% 15 Ml Udc) 15 ml PO X1 ONE Stop: 10/22/25 22:46 Last Admin: 10/23/25 02:47 Dose: Not Given Documented By: DOMINIK Non-Admin Reason: Cancelled by Provider Lisinopril (Lisinopril 20 Mg Tablet) 20 mg PO BID DYLON Stop: 11/24/25 11:44 Last Admin: 10/27/25 09:22 Dose: 20 mg Documented By: Admin: 10/26/25 21:18 Dose: 20 mg Documented By: Admin: 10/26/25 09:35 Dose: 20 mg Documented By: Admin: 10/25/25 21:18 Dose: 20 mg Documented By: Admin: 10/25/25 13:14 Dose: 20 mg Documented By: PEPE Melatonin (Melatonin 3 Mg Tablet) 6 mg PO HS DYLON Stop: 11/22/25 20:59 Last Admin: 10/26/25 21:18 Dose: 6 mg Documented By: Admin: 10/25/25 21:21 Dose: 6 mg Documented By: Admin: 10/24/25 20:58 Dose: 6 mg Documented By: JOSE ELIAS Admin: 10/23/25 21:11 Dose: 6 mg Documented By: DOMINIK Morphine Sulfate (Morphine Sulf Inj 4 Mg/Ml Vial) 4 mg IVP X1 ONE Stop: 10/22/25 11:00 Last Admin: 10/22/25 11:17 Dose: 4 mg Documented By: BIGG Morphine Sulfate (Morphine Sulf Inj 4 Mg/Ml Vial) 1 mg IVP X1 ONE Stop: 10/24/25 17:05 Last Admin: 10/24/25 18:32 Dose: 1 mg Documented By: Non-Formulary Medication [facility] Stop: 11/22/25 08:59 Ondansetron HCl (Ondansetron Inj 2 Mg/Ml Inj 2 Ml) 4 mg IVP X1 ONE Stop: 10/22/25 11:00 Last Admin: 10/22/25 11:17 Dose: 4 mg Documented By: BIGG Ondansetron HCl (Ondansetron Inj 2 Mg/Ml Inj 2 Ml) 4 mg IVP Q8HR PRN; Protocol PRN Reason: NAUSEA OR VOMITING Stop: 11/21/25 22:40 Last Admin: 10/23/25 14:45 Dose: 4 mg Documented By: Admin: 10/22/25 23:32 Dose: 4 mg Documented By: DOMINIK Pantoprazole Sodium (Pantoprazole Inj 40 Mg Vial) 40 mg IVP QDAY [facility] Stop: 11/21/25 17:29 Last Admin: 10/22/25 17:38 Dose: 40 mg Documented By: BIGG Pantoprazole Sodium (Pantoprazole Inj 40 Mg Vial) 40 mg IVP QDAY [facility] Stop: 11/22/25 07:59 Last Admin: 10/27/25 09:21 Dose: 40 mg Documented By: Admin: 10/26/25 09:39 Dose: 40 mg Documented By: Admin: 10/25/25 09:40 Dose: 40 mg Documented By: Admin: 10/24/25 09:18 Dose: 40 mg Documented By: Admin: 10/23/25 08:07 Dose: Not Given Documented By: BIA Non-Admin Reason: Duplicate Medication on eMAR Admin: 10/23/25 07:50 Dose: 40 mg Documented By: BIA Pantoprazole Sodium (Pantoprazole Inj 40 Mg Vial) 40 mg IVP X1 ONE Stop: 10/23/25 16:24 Last Admin: 10/23/25 16:37 Dose: 40 mg Documented By: BIA Pantoprazole Sodium (Pantoprazole Inj 40 Mg Vial) 20 mg IVP X1 ONE Stop: 10/23/25 20:29 Last Admin: 10/23/25 21:08 Dose: 20 mg Documented By: DOMINIK Polyethylene Glycol (Polyethylene Glycol 17 Gm Packet) 17 gm PO X1 ONE Stop: 10/25/25 03:35 Last Admin: 10/25/25 03:56 Dose: 17 gm Documented By: JOSE ELIAS Polyethylene Glycol (Polyethylene Glycol 17 Gm Packet) 17 gm PO QDAY PRN PRN Reason: acid reflux Stop: 11/24/25 15:14 Last Admin: 10/25/25 15:17 Dose: 17 gm Documented By: PEPE Potassium Chloride (Potassium Chloride 20 Meq Tabcr) 40 meq PO X1 ONE Stop: 10/22/25 15:08 Last Admin: 10/22/25 15:20 Dose: 40 meq Documented By: BIGG Potassium Chloride (Potassium Chloride 20 Meq Tabcr) 40 meq PO X1 ONE Stop: 10/22/25 16:20 Last Admin: 10/22/25 16:35 Dose: 40 meq Documented By: BIGG Potassium Chloride (Potassium Chloride 20 Meq Tabcr) 40 meq PO X1 ONE Stop: 10/25/25 12:34 Last Admin: 10/25/25 13:09 Dose: 40 meq Documented By: PEPE Potassium Phos/Sodium Phos (Naph,[facility]ly [facility] Mbdb 1 Packet (1.5 Gm)) 1 packet PO X1 ONE Stop: 10/23/25 06:39 Last Admin: 10/23/25 06:52 Dose: 1 packet Documented By: DOMINIK Sennosides (Senna/Docusate Sod 1 Tab Tablet) 1 tab PO X1 ONE; Protocol Stop: 10/25/25 03:35 Last Admin: 10/25/25 03:56 Dose: 1 tab Documented By: RC Simethicone (Simethicone 80 Mg Chew) 80 mg PO X1 ONE Stop: 10/24/25 11:18 Last Admin: 10/24/25 11:37 Dose: 80 mg Documented By: MG Simethicone (Simethicone 80 Mg Chew) 80 mg PO X1 ONE Stop: 10/25/25 03:37 Last Admin: 10/25/25 03:56 Dose: 80 mg Documented By: JOSE ELIAS Sodium Bicarbonate (Sodium Bicarb Inj 8.4% Syr 50 Ml Syringe) 50 ml IV Q4HR PRN PRN Reason: For ph <= to 7.0 Stop: 11/21/25 15:00 Sodium Chloride (Sodium Chloride 1 Gm Tablet) 1 gm PO X1 ONE Stop: 10/25/25 12:35 Last Admin: 10/25/25 13:09 Dose: 1 gm Documented By: PEPE Tacrolimus (Tacrolimus 0.5 Mg Capsule) 1.5 mg PO QDAY [facility] Stop: 11/21/25 17:14 Last Admin: 10/27/25 09:22 Dose: 1.5 mg Documented By: Admin: 10/26/25 09:36 Dose: 1.5 mg Documented By: Admin: 10/25/25 09:39 Dose: 1.5 mg Documented By: Admin: 10/24/25 09:19 Dose: 1.5 mg Documented By: Admin: 10/23/25 09:52 Dose: 1.5 mg Documented By: Admin: 10/22/25 17:39 Dose: 1.5 mg Documented By: BIGG Tacrolimus (Tacrolimus 1 Mg Capsule) 1 mg PO HS [facility] Stop: 11/21/25 20:59 Last Admin: 10/26/25 21:18 Dose: 1 mg Documented By: Admin: 10/25/25 21:24 Dose: 1 mg Documented By: Admin: 10/24/25 20:57 Dose: 1 mg Documented By: JOSE ELIAS Admin: 10/23/25 21:11 Dose: 1 mg Documented By: Admin: 10/22/25 20:31 Dose: 1 mg Documented By: EARL as above by date Consultations Consultation(s) initiated? (list below): No Diagnosis Nausea Differential Diagnosis: traveler's diarrhea, food poisoning, gastroenteritis, drug-induced nausea and vomiting, dehydration and other (DKA) Most likely diagnosis given after review of the tests above:: DKA Admission Indicated Admission indicated?: indicated Admission Request Was there a request for admission?: Yes Admission Attestation Admission request attestation: Discussed case with [] from Hospitalist service regarding admission. Discussed patients ED course, exam findings, labs, and radiology results. The Hospitalist [agrees,declines] to accept the patient for admission. Disposition Plan Disposition Plan: Admit Critical Care Time Critical Care Time Critical Care Time: Yes Total Critical Care Time (min.): 35 Attestation: The high probability of sudden, clinically significant deterioration in the patient's condition required the highest level of my preparedness to intervene urgently. The services I provided to this patient were to treat and/or prevent clinically significant deterioration. Services included the following: chart data review, reviewing nursing notes and/or old charts, documentation time, [employer] retailer sales consultant collaboration regarding findings and treatment options, medication orders and management, direct patient care, vital sign assessments and ordering, interpreting and reviewing diagnostic studies and lab tests. Aggregate critical care time includes only time during which I was engaged in work directly related to the patient's care, as described above, whether at bedside or elsewhere in the Emergency Department. It did not include time spent performing other reported procedures or the services of residents, students, nurses or physician assistants. Discharge Plan Plan Patient Disposition: Admit Acute Care w/in Hospital Patient condition on transfer: Stable Problem List Clinical Impression: DKA (diabetic ketoacidosis)
--- NOTE | 2025-10-22 10:59 | XR_ITS ---
EXAMINATION: AP chest single view TECHNIQUE: AP portable semiupright chest single view Date and time: October 22, 2025, 11:02 a.m., comparison August 30, 2025 INDICATIONS: Chest pain shortness of breath today. FINDINGS: Moderate enlargement left ventricle Median sternotomy wires. No pneumonia or pulmonary edema. Intact osseous structures IMPRESSION: Moderate enlargement left ventricle No pneumonia or pulmonary edema
[2025-10-22] MEDS: MORPHINE SULF INJ 4 MG/ML VIAL IVP (11:17)
[2025-10-22] MEDS: SODIUM CHLORIDE 0.9% 1000 ML 1,000 ML 999 ML IV ×3 (11:17→15:09)
[2025-10-22] MEDS: ONDANSETRON INJ 2 MG/ML INJ 2 ML 4 MG IVP ×2 (11:17→23:32)
--- NOTE | 2025-10-22 11:43 | EKG_ITS ---
[facility] Test Date: 2025-10-22 Pat Name: FIDEL WOLF Department: Room: - Gender: Male Emergency Dept Tech: : 1995 Requested By: Mehreen Childress Order Number: [id number] Reading MD: Mehreen Childress Measurements Intervals [place] Rate: 119 P: -69 AR: 148 QRS: -29 QRSD: 93 T: 78 QT: 369 QTc: 519 Interpretive Statements ECTOPIC ATRIAL TACHYCARDIA SEPTAL MYOCARDIAL INFARCTION , OF INDETERMINATE AGE [40+ ms Q WAVE IN V1/V2] Compared to ECG 10/22/2025 10:25:17 Junctional tachycardia no longer present Myocardial infarct finding still present /store/S0/[id number]
--- NOTE | 2025-10-22 11:44 | PC.NURSE ---
Patient HR increased to 169 and fluctuates from 120-6 to 150's, patient having frequent PAC'S, Dr. Deshpande made aware, repeat ekg ordered.
[2025-10-22] MEDS: INSULIN HUM REGULAR 1 UNIT/0.01 ML (PER UNIT) 5 UNIT IV (11:49)
[2025-10-22 11:54] LABS: Basophils # (Auto) 0.1 Thou/mm3 (0.0-0.2); Basophils % (Auto) 1 % (0-2.5); Eosinophils # (Auto) 0.0 Thou/mm3 (0.0-0.5); Eosinophils % (Auto) 0 % (0-10); Hematocrit 40.8 % (41.0-53.0); Hemoglobin 13.6 g/dL (13.5-16.0); Immature Granulocytes Auto 0.12 Thou/mm3 (0.00-0.00); Lymphocytes # (Auto) 2.4 Thou/mm3 (1.0-4.8); Lymphocytes % (Auto) 13 % (10-50); Mean Corpuscular HGB Conc 33.3 g/dl (31.0-37.0); Mean Corpuscular Hemoglobin 25.2 pg (25.0-35.0); Mean Corpuscular Volume 76 fL (80-100); Monocytes # (Auto) 0.9 Thou/mm3 (0.0-0.8); Monocytes % (Auto) 5 % (0-12); Neutrophils # (Auto) 15.3 Thou/mm3 (1.8-7.7); Neutrophils % (Auto) 81 % (37-80); Nucleated Red Blood Cell # 0.00 Thou/mm3 (0.00-0.00); Nucleated Red Blood Cell % 0 /100 WBC (0); Platelet Count 384 Thou/mm3 (140-440); RDW Standard Deviation 38.4 fL (35.1-43.9); Red Blood Count 5.39 Miln/mm3 (4.50-5.90); White Blood Count 18.9 Thou/mm3 (3.8-10.6)
[2025-10-22 12:10] LABS: Alanine Aminotransferase 28 U/L (10-49); Albumin, Serum 4.8 gm/dL (3.5-5.0); Albumin/Globulin Ratio 1.5 (1.2-2.2); Alcohol, Blood Medical < 3.0 mg/dL (0-10.0); Alkaline Phosphatase 74 U/L (46-116); Anion Gap 27 (7-16); Aspartate Amino Transferase 40 U/L (0-34); BUN/Creatinine Ratio 10 Ratio (12-20); Bilirubin,Total 0.8 mg/dL (0.3-1.2); Blood Urea Nitrogen 17 mg/dL (9-23); Calcium 9.4 mg/dL (8.3-10.6); Calcium (Corrected) 9.4 mg/dL (8.5-10.1); Chloride 101 mMol/L (98-107); Creatinine (Component) 1.7 mg/dL (0.6-1.3); Estimated Creatinine Clearance 69.1 mL/min (>60); Globulin 3.3 gm/dL (2.3-3.5); Glucose 316 mg/dL (74-106); Lipase 33 U/L (12-53); Magnesium 1.8 mg/dL (1.6-2.6); Osmolality,Calculated 292 (275-295); Potassium 3.0 mMol/L (3.4-5.1); Sodium 140 mMol/L (136-145); Total Protein 8.1 gm/dL (5.7-8.2); Troponin I < 0.020 ng/mL (0.0-0.045); eGFR 55 See Note
[2025-10-22 12:18] LABS: B-Type Natriuretic Peptide 28 pg/mL (0-100)
[2025-10-22 12:21] LABS: Carbon Dioxide 12.1 mMol/L (20.0-31.0)
--- NOTE | 2025-10-22 12:46 | PC.NURSE ---
Patient has urinal and is unable to give urine sample, patient refusing in and out cathetar, will notify dr. constantino.
[2025-10-22 12:53] LABS: Lactate (Lactic Acid) 7.4 mMol/L (0.4-2.0)
--- NOTE | 2025-10-22 12:57 | XR_ITS ---
Examination: CT abdomen and pelvis without contrast. Coronal 3-D reconstructions. Sagittal 2-D reconstructions. Date and time of exam: 10/22/2025, 2:53 p.m.. COMPARISON: 01/24/2024 INDICATION: Epigastric pain CTDI: vol (mGy): 8.6 DLP: (mGycm): 505 Technique: Axial images of the abdomen have been obtained, 3 mm slice thickness Intravenous contrast material has not been administered. Low dose protocols were performed. One or more of the following dose reduction techniques were used; automated exposure control, adjustment of the mA and/or KV according to patient size, use of iterative reconstruction technique. Findings: Lung bases are clear. Liver, gallbladder, pancreas, spleen and bilateral adrenal glands appear normal. Bilateral kidneys appear normal. No evidence of hydronephrosis, renal calculi or perinephric inflammation. Bladder appears normal Stomach is fluid-filled and markedly distended the appendix appears normal. Visualized GI tract is otherwise unremarkable. No evidence of anterior abdominal masses or free fluid. No acute bony abnormality. IMPRESSION: Markedly distended fluid-filled stomach Otherwise negative exam.
[2025-10-22] MEDS: cefTRIAXone/D5w 1gm IV premix 1 GM/50 ML BAG IV (13:00)
[2025-10-22 13:06] LABS: Glucose Estimated Average 272 mg/dL (80-131); Hemoglobin A1C 11.1 % Hgb (4.8-6.0)
[2025-10-22 13:13] LABS: Procalcitonin 0.20 ng/ml (0.0-0.49)
[2025-10-22] MEDS: DILTIAZEM INJ 5 MG/ML VIAL 5 ML 15 MG IV (13:23)
[2025-10-22] MEDS: POTASSIUM CHL 10 mEq IVPB 10 MEQ/100 ML BAG 100 MEQ IV ×4 (13:24→17:12)
[2025-10-22 14:30] LABS: Beta Hydroxybutyrate 5.3 mmol/L (<0.6)
[2025-10-22 14:33] LABS: Base Excess -14 (-3-3); HCO3 12 mEq/L (20-26); O2 Saturation 98 % (91-98); PCO2 30 mmHg (32.0-48.0); PO2 114 mmHg (83-108); pH, Arterial 7.22 (7.35-7.45)
[2025-10-22 14:34] LABS: Allen Test Not Performed; Inspired Oxygen, FIO2 21 %; Puncture Site Right Brachial
--- NOTE | 2025-10-22 14:42 | PC.NURSE ---
Patient gone to ct via [facility] with log inspector
--- NOTE | 2025-10-22 15:32 | PC.NURSE ---
Called pharmacy to bring insulin gtt to er, not available in our er pyxis.
[2025-10-22] MEDS: INSULIN REGULAR IV (15:38)
[2025-10-22] MEDS: SODIUM CHLORIDE 0.9% IV (15:38)
[2025-10-22 15:43] LABS: Reflex Lactate? Y
[2025-10-22 15:52] LABS: Lactic Acid, 3 HR 8.4 mMol/L (0.4-2.0)
--- NOTE | 2025-10-22 15:55 | ESHP_ITS ---
<Statement entered by Swapna Lanier MD - 10/23/25 12:01> TOTAL CC TIME: MIN I saw and evaluated the patient. I reviewed the resident?s note and agree with findings and plan as documented in the resident?s note. Upon my evaluation, this patient had a high probability of imminent or life- threatening deterioration due to DKA, which required my direct attention, intervention, and personal management. This time is exclusive of time spent on procedures, which are documented separately if performed. Aggresive fluids, insulin drip, frequent electrolyte follow-up and replacement as required. Insulin drip intentionally held until potassium repleted initially History of cardiac transplant, continue immunosuppressive's Documentation for date of: 10/22/25 HPI History of Present Illness History of present illness: Shubham Ruiz is a 30 y/o male with PMHx of cardiomyopathy (status post heart transplant at [facility] in 2000), insulin-dependent type 2 diabetes mellitus, hypertension, hyperlipidemia, CAD status post PCI, CKD stage III, depression who comes in for an evaluation after an acute onsets of nausea, dry heaving and generalized weakness onset this morning, has happened before, no one around him feeling like this. Patient reports that decided to come to the ER for further evaluation after having the symptoms. He does not have any headache, however endorses some chest pain that is generalized, however no shortness of breath at this time. He says that he takes 45 units of Lantus at home in addition to sliding scale. He does have a satellite television installer Dr. Londono in [place]. He says he checks his sugars every day, however does not know what the numbers are at home. He says he has insulin at home. Says he takes all his medicines as prescribed, however he recently had his metformin discontinued by his physician. He says his photographer portrait ordered at [facility] and that he has an appointment on the 15 of this month. Denies any recent sick contacts or recent travel. He has no other complaints at this time. ED course: Patient arrived to the ED with a temperature of 97.9, heart rate 128, respiratory rate 28, elevated blood pressure at 150/85, saturating 99% on room air. Patient was worked up and was found to have a white count of 18, hemoglobin 13.6, sodium 140, potassium 3.0, chloride 101, bicarbonate 12, BUN/creatinine 17 and 1.7 respectively, glucose 317, anion gap 27, GFR 55, lactate 7.4, magnesium 1.8, troponin negative x 1, beta hydroxybutyrate 5.3, procalcitonin 0.2. EKG was done and had showed tachycardia, QT 350, however it was noted that patient had went into A-fib on telemetry while in the ED and was given Cardizem 15 mg at that time. Patient had chest x-ray was within normal limits, and also abdomen/pelvis CT which showed fluid distended stomach. Patient was given 5 units of insulin, Zofran x 1, started on 40 mill equivalents of IV potassium, morphine 4 mg x 1, given 2 L of sodium chloride bolus, sodium phosphate x 1, Rocephin x 1. ICU was consulted for medical management of DKA. Patient was admitted to the ICU for further management. PMHx: As above Surgeries: Heart transplant usually in 2000, PCI Meds: Aspirin, Plavix 75 mg, Lexapro 10 mg, Protonix, Zyrtec, Crestor 20 mg, fluconazole 200 mg, tacrolimus 0.5 mg 3 in the morning, 2 in the evening, sirolimus 1 mg daily, amlodipine 10 mg, Jardiance 25 mg Allergies: No known allergies Family Hx: Says on his dad's side of family, he has multiple cousins that have had cardiac transplants. His parents do not have any heart problems. He is unsure of the exact medical condition, however says it is cardiomyopathy of some sort and genetic. Does not think it is HCOM. Social Hx: Lives at home with his parents. Does not work. Has no kids. Does not smoke, drink or do illicit drugs. He is able to walk on his own. His primary care doctor is Dr. Esteves. No recent travel Review of Systems Review of Systems Narrative Review of Systems: 12 point ROS reviewed and is otherwise negative unless stated directly in the HPI Exam Vital Signs Temp Pulse Resp BP Pulse Ox O2 Del Method 97.5 F 106 H 30 H 177/99 H 98 Room Air 10/22/25 12:47 10/22/25 15:29 10/22/25 15:29 10/22/25 15:29 10/22/25 15:29 10/22/25 15:29 Narrative Exam General: AAOx3, in mild distress, has multiple tattoos as well as body HEENT: Dry mucous membranes, conjunctiva clear, EOMI, PERRLA, Cardiovascular: Midline sternotomy scar, appears to have systolic ejection murmur most pronounced at right upper sternal border, S1-S2, reproducible chest pain Pulmonary: CTAB bilat no cough, tachypneic GI: No tenderness to light or deep palpitation, no guarding, rigidity, rebound tenderness or distension, no abdominal scars Extremities: No presence of trace or pitting edema in lower extremities bilaterally, dorsalis pedis pulses +2 bilaterally Neuro: AAOx3, no focal motor or sensory deficits in the UE or LE bilat Psych: Able to cooperate Results: Labs 10/22/25 11:33 10/22/25 15:16 Labs: Short CBC 10/22/25 Range/Units 11:33 WBC 18.9 H (3.8-10.6) Thou/mm3 Hgb 13.6 (13.5-16.0) g/dL Hct 40.8 L (41.0-53.0) % Plt Count 384 (140-440) Thou/mm3 BMP 10/22/25 11:33 Sodium 140 Potassium 3.0 L Chloride 101 Carbon Dioxide 12.1 L* BUN 17 Creatinine 1.7 H Glucose 316 H Calcium 9.4 Cardiac Enzymes 10/22/25 Range/Units 11:33 Troponin I < 0.020 (0.0-0.045) ng/mL Liver Function 10/22/25 Range/Units 11:33 Total Bilirubin 0.8 (0.3-1.2) mg/dL AST 40 H (0-34) U/L ALT 28 (10-49) U/L Alkaline Phosphatase 74 (46-116) U/L Albumin 4.8 (3.5-5.0) gm/dL ABG Interpretation ABG results: 10/22/25 14:26 ABG pH 7.22 L ABG pCO2 30 L ABG pO2 114 H ABG HCO3 12 L ABG O2 Saturation 98 ABG Base Excess -14 L Quality Measures Quality Measures VTE prophylaxis Medications Home Medications and Allergies Home Medications ?Medication ?Instructions ?Recorded ?Confirmed ?Type clopidogrel 75 mg tablet 75 mg PO QDAY 01/20/2410/20 History fenofibrate nanocrystallized 145 145 mg PO DAILY 01/1910/20/25 History mg tablet pantoprazole 40 mg tablet,delayed 40 mg PO QDAY 10/20/25 History release amlodipine 5 mg tablet 5 mg PO QDAY 10/15/24 History escitalopram oxalate 10 mg tablet 10 mg PO QDAY 10/20/25 History tacrolimus 0.5 mg capsule, 2.5 mg PO QDAY 10/15/2410/04 History immediate-release famotidine 20 mg tablet 20 mg PO HS 10/21/24 5 History enalapril maleate 10 mg tablet 10 mg PO BID 12/02/24 1 12/21/24 History rosuvastatin 20 mg tablet 20 mg PO QHS 12/02/24 History sirolimus 0.5 mg tablet 1 mg PO QDAY 12/02/24 History Allergies Allergy/AdvReac Type Severity Reaction Status Date / Time No Known Allergies Allergy Verified 10/20/25 15:39 Visit Medications Acetaminophen (Acetaminophen 325 Mg Tablet) 650 mg PO Q4HR PRN PRN Reason: PAIN SCALE 1-3 (mild Stop: 11/21/25 15:00 Dextrose (Dextrose 50%-Water Inj 50 Ml Syringe) 25 ml IV PRNMRX1 PRN PRN Reason: Blood Sugar - Low Potassium Chloride (Kcl Ivpb) 10 meq in 100 mls @ 100 mls/hr IV Q1H DYLON Stop: 10/22/25 17:01 Last Admin: 10/22/25 15:09 Dose: 100 mls/hr Potassium Chloride 20 meq/ (Dextrose/Lactated Ringer's) 1,010 mls @ 250 mls/hr IV .Q4H3M PRN PRN Reason: K LEVEL 3.3 TO 5.3 mM/L Stop: 11/21/25 15:00 Potassium Chloride 40 meq/ (Dextrose/Lactated Ringer's) 1,020 mls @ 250 mls/hr IV .Q4H5M PRN PRN Reason: K LEVEL < 3.3mM/L Stop: 11/21/25 15:00 Potassium Chloride (Kcl Ivpb) 10 meq in 100 mls @ 100 mls/hr IV .Q1H PRN PRN Reason: IF POTASSIUM LESS THAN 3.3 Stop: 11/21/25 15:00 Magnesium Sulfate (Magnesium Sulfate Ivpb) 2 gm in 50 mls @ 25 mls/hr IV .Q2H PRN PRN Reason: PER DKA PROTOCOL Stop: 11/21/25 15:00 Insulin Human Regular 100 unit (/ Sodium Chloride) 100 mls @ 8.301 mls/hr IV .Q12H3M PRN; Protocol PRN Reason: PER PROTOCOL Stop: 11/21/25 15:00 Last Admin: 10/22/25 15:38 Dose: 0.1 unit/kg/hr, 8.301 mls/hr Dextrose/Lactated Ringer's (D5-Lr) 1,000 mls @ 250 mls/hr IV .Q4H PRN PRN Reason: PER PROTOCOL Stop: 11/21/25 15:00 Lactated Ringer's (Lactated Ringers) 1,000 mls @ 250 mls/hr IV .Q4H PRN PRN Reason: PER PROTOCOL Stop: 10/23/25 15:00 Potassium Chloride 20 meq/ (Lactated Ringer's) 1,010 mls @ 250 mls/hr IV .Q4H3M PRN PRN Reason: K LEVEL 3.3 TO 5.3mM/L Stop: 11/21/25 15:00 Potassium Chloride 40 meq/ (Lactated Ringer's) 1,020 mls @ 250 mls/hr IV .Q4H5M PRN PRN Reason: K LEVEL < 3.3 mM/L Stop: 11/21/25 15:00 Potassium Chloride (Kcl Ivpb) 10 meq in 100 mls @ 50 mls/hr IV PRN PRN PRN Reason: K LEVEL 3.3 to 5.3 & BG > 200 Stop: 11/21/25 15:00 Potassium Phosphate (Pot Phos 15 Mmol In Ns 250 Ml) 15 mmol in 250 mls @ 62.5 mls/hr IV PRN PRN PRN Reason: Phosphate <= 1mg/dL Stop: 11/21/25 15:00 Sodium Phosphate 15 mmol/ (Sodium Chloride) 255 mls @ 62.5 mls/hr IV .Q4H5M PRN PRN Reason: Phosphate <= 1mg/dL and K> than 5.3 Stop: 11/21/25 15:00 Sodium Bicarbonate (Sodium Bicarb Inj 8.4% Syr 50 Ml Syringe) 50 ml IV Q4HR PRN PRN Reason: For ph <= to 7.0 Stop: 11/21/25 15:00 Discontinued Medications Diltiazem HCl (Diltiazem Inj 5 Mg/Ml Vial 5 Ml) 15 mg IV X1 ONE Stop: 10/22/25 13:14 Last Admin: 10/22/25 13:23 Dose: 15 mg Sodium Chloride (Ns) 1,000 mls @ 999 mls/hr IV .Q1H1M ONE Stop: 10/22/25 12:00 Last Infusion: 10/22/25 12:29 Dose: Infused Ceftriaxone Sodium/Dextrose (Rocephin/D5w 1gm Iv Premix) 1 gm in 50 mls @ 100 mls/hr IV X1 ONE Stop: 10/22/25 13:25 Last Infusion: 10/22/25 13:35 Dose: Infused Sodium Chloride (Ns) 1,000 mls @ 999 mls/hr IV .Q1H1M ONE Stop: 10/22/25 14:07 Last Infusion: 10/22/25 14:30 Dose: Infused Sodium Chloride (Ns) 1,000 mls @ 999 mls/hr IV .Q1H1M ONE Stop: 10/22/25 15:08 Last Admin: 10/22/25 15:09 Dose: 999 mls/hr Insulin Human Regular (Insulin Hum Regular 1 Unit/0.01 Ml (Per Unit)) 5 unit IV X1 ONE Stop: 10/22/25 11:26 Last Admin: 10/22/25 11:49 Dose: 5 unit Morphine Sulfate (Morphine Sulf Inj 4 Mg/Ml Vial) 4 mg IVP X1 ONE Stop: 10/22/25 11:00 Last Admin: 10/22/25 11:17 Dose: 4 mg Ondansetron HCl (Ondansetron Inj 2 Mg/Ml Inj 2 Ml) 4 mg IVP X1 ONE Stop: 10/22/25 11:00 Last Admin: 10/22/25 11:17 Dose: 4 mg Potassium Chloride (Potassium Chloride 20 Meq Tabcr) 40 meq PO X1 ONE Stop: 10/22/25 15:08 Last Admin: 10/22/25 15:20 Dose: 40 meq Assessment & Plan Plan Assessment Shubham Ruiz is a 30 y/o male with PMHx of cardiomyopathy (status post heart transplant at [facility] in 2000), insulin-dependent type 2 diabetes mellitus, hypertension, hyperlipidemia, CAD status post PCI, CKD stage III, depression who was admitted to the ICU for DKA. Neurology Stable Cardiology: #Chest Pain DDx: Non-cardiac, GERD, reproducible, Cardiac Dx: Troponin, physical exam. Initial troponin negative. Physical exam reveals reproducible chest pain Rx: Repeat troponin, GI cocktail RRX: If patient has worsening chest pain #Hx of cardiomyopathy s/p heart transplant Plan: ? Resuming home Tacrolimis, and Sirolimus #Hypertension #Hyperlipidemia Chronic Plan: ? Resuming home amlodipine 10 mg ? Resumed dose equivalent Lipitor 40 mg of home Crestor 20 mg at bedtime ? Resuming home fenofibrate 145 mg qday #Hx of CAD Had 3 stents in 2022 Plan: ? Resuming home ASA and Plavix Pulmonary: #Tachypnea DDx: Likely respiratory alkalosis compensation to DKA Dx: Physical exam, Vitals, ABG Rx: Treat underlying DKA RRX: If DKA is not treated appropriately Gastrointestinal: Stable Nephrology: #HAGMA without adequate compensation #Ketoacidosis DDx: Ketoacidosis, lactic acidosis AG 26, pH 7.22 Winter's: 24-28 (pCO2 not renally compensated since it is 30), Delta-Delta= 1.16 -> HAGMA Dx: CMP, ABG, Rx: Treat underlying problem of DKA with drip (listed below), IV fluid boluses RRX: If DKA is not treated appropriately #Lactic Acidosis DDx: Type A vs B. Pt does not appear to have sepsis at this time, however Lactate of 7.2 is high for a patient with DKA Dx: Lactic Acidosis, CMP Rx: IV fluid bolus, treat underlying DKA, trend lactate Q4h RRX: If there is another cause of for the Lactic Acidosis #Acute kidney injury on CKD Stage III DDx: Pre-renal, post-renal or intrinsic. Appears to be pre-renal in nature Dx: CMP, UOP, (Creatinine baseline appears to be 1.4) Rx: IV fluid boluses RRX: If it is not a pre renal cause and pt has a different reason for WAYNE Genitourinary: Stable Hematology: #Leukocytosis DDx: Reactive, Stress related, Infection Dx: CBC, CXR, U/A w/culture if indicated Rx: CBC RRX: If patient has infection that is not treated Endocrine: #DKA DDx: Mild, Moderate, Severe. Likely Moderate w/ pH 7.22, Beta-Hydroxy elevation (5.3), AG 26, Bicarbonate at 12, and Urine Ketone presence. A1c 11.1 Dx: ABG, A1c, CMP, Bedside glucose check, Beta-Hydroxybutyrate, U/A, Anion Gap Rx: Insulin Drip Protocol (0.1 units/kg), Bedside Glucose checks q1h, Potassium replenishment as needed with goal above 3.5, renal panel every 4 hours, RRX: If not enough insulin is given #Insulin Dependent Type II Diabetes mellitus, non-controlled A1c 11.1 Plan: ? Insulin Drip as above ? Hypoglycemic protocol in place ? Glucose checks q1h as above Infectious Disease: #Hx of Valley Fever Prophylaxis 2/2 transplant history Plan: ? Resumed home prophylaxis of Diflucan 200 mg Skin: No active problems at this time Psych: #Hx of Depression Plan: ? Resume home Lexapro 10 mg qday #ICU Health maintenance Mechanical ventilation: none Sedation: None Diet: NPO DVT prophylaxis: Heparin GI prophylaxis: Protonix Vill[place]uerte: None Lines: PIV Antibiotics: None CODE STATUS: Full Patient seen and care discussed with my attending physician, Dr. Yolande Malik, PGY-2 This document was transcribed using voice recognition technology. Minor inaccuracies may be present.
[2025-10-22 16:05] LABS: Albumin, Serum 4.6 gm/dL (3.5-5.0); Anion Gap 26 (7-16); BUN/Creatinine Ratio 11 Ratio (12-20); Blood Urea Nitrogen 19 mg/dL (9-23); Calcium 8.6 mg/dL (8.3-10.6); Calcium (Corrected) 8.6 mg/dL (8.5-10.1); Chloride 103 mMol/L (98-107); Creatinine (Component) 1.8 mg/dL (0.6-1.3); Estimated Creatinine Clearance 65.3 mL/min (>60); Glucose 360 mg/dL (74-106); Osmolality,Calculated 294 (275-295); Phosphorous 4.7 mg/dL (2.4-5.1); Potassium 3.4 mMol/L (3.4-5.1); Sodium 139 mMol/L (136-145); eGFR 51 See Note
[2025-10-22] MEDS: RINGERS LACTATED 1000 ML 1,000 ML 999 ML IV (16:09)
[2025-10-22 16:11] LABS: Carbon Dioxide 10.1 mMol/L (20.0-31.0)
--- NOTE | 2025-10-22 17:27 | PC.NURSE ---
Called pharmacy to bring tricor and diflucan to er, not in our pyxis.
[2025-10-22] MEDS: ASPIRIN EC 81 MG TABEC PO (17:29)
[2025-10-22] MEDS: CLOPIDOGREL BISULFATE 75 MG TABLET PO (17:29)
[2025-10-22] MEDS: MG HYD/AL HYD/SIME (Maalox Reg) SUSP 30 ML UDC PO (17:38)
[2025-10-22] MEDS: FENOFIBRATE 145 MG TABLET (NON-FORMULARY) PO (17:39)
[2025-10-22] MEDS: FLUCONAZOLE 100 MG TABLET 200 MG PO (17:39)
[2025-10-22] MEDS: TACROLIMUS 0.5 MG CAPSULE 1.5 MG PO (17:39)
--- NOTE | 2025-10-22 18:46 | PC.NURSE ---
Called pharmacy spoke with Rosalba, will send K+20meq in D5 LR IVF
[2025-10-22 19:24] LABS: Troponin I 0.162 ng/mL (0.0-0.045)
[2025-10-22 19:26] LABS: Collection Type, Urine Clean Catch
[2025-10-22] MEDS: POT CHL ADDITIVE 20 MEQ in DEXTROSE 5%-LACTATED RINGERS 1,000 ML 250 MEQ IV (19:31)
[2025-10-22 19:49] LABS: Bilirubin,Urine Negative (Negative); Blood,Urine Trace (Negative); Clarity,Urine Clear (Clear/Hazy); Color,Urine Lt-Yellow (Lt Yel-Yel); Culture Indicated,Urine Not Indicated; Glucose, Urine 4+ (Negative); Ketones,Urine 1+ (Negative); Leukocyte Esterase,Urine Negative (Negative); Nitrite,Urine Negative (Negative); PH,Urine 6.0 (5.0-7.0); Protein,Urine 1+ (Neg - Trace); RBC,Urine < 1 /hpf (0-3); Specific Gravity,Urine 1.021 (1.001-1.035); Squamous Epithelial Cell,Urine < 1 /hpf (0-5); Urobilinogen,Urine Negative mg/dL (0.0-1.0); WBC,Urine 3 /hpf (0-5)
[2025-10-22 19:55] LABS: Amphetamine/Methamp Scrn,U Negative (Negative); Barbiturate Screen,Urine Negative (Negative); Benzodiazepines Screen,Urine Negative (Negative); Benzoylecgonine Screen, Ur Negative (Negative); Fentanyl Screen,Urine Negative (Negative); Opiate Screen,Urine Positive (Negative); THC Screen,Urine Positive (Negative)
--- NOTE | 2025-10-22 19:56 | EKG_ITS ---
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
[2025-10-22 20:05] LABS: Lactate (Lactic Acid) 3.7 mMol/L (0.4-2.0)
[2025-10-22] MEDS: ATORVASTATIN CALCIUM 20 MG TABLET 40 MG PO (20:31)
[2025-10-22] MEDS: TACROLIMUS 1 MG CAPSULE PO (20:31)
[2025-10-22 20:40] LABS: Albumin, Serum 4.5 gm/dL (3.5-5.0); Anion Gap 17 (7-16); BUN/Creatinine Ratio 11 Ratio (12-20); Blood Urea Nitrogen 17 mg/dL (9-23); Calcium 9.0 mg/dL (8.3-10.6); Calcium (Corrected) 9.0 mg/dL (8.5-10.1); Carbon Dioxide 17.1 mMol/L (20.0-31.0); Chloride 105 mMol/L (98-107); Creatinine (Component) 1.6 mg/dL (0.6-1.3); Estimated Creatinine Clearance 73.4 mL/min (>60); Glucose 135 mg/dL (74-106); Magnesium 1.4 mg/dL (1.6-2.6); Osmolality,Calculated 281 (275-295); Phosphorous 2.2 mg/dL (2.4-5.1); Potassium 3.8 mMol/L (3.4-5.1); Sodium 139 mMol/L (136-145); eGFR 59 See Note
--- NOTE | 2025-10-22 23:00 | PC.NURSE ---
Attempted to complete Med Rec, Pt's point of contact will try to bring in home meds during visiting hours on 10/23/25
[2025-10-22 23:01] LABS: Reflex Lactate? Y
[2025-10-22] MEDS: CALCIUM CARBONATE 600 MG TABLET PO (23:32)
[2025-10-22 23:35] LABS: Lactate (Lactic Acid) 1.7 mMol/L (0.4-2.0)
[2025-10-22] MEDS: POT CHL ADDITIVE 40 MEQ in DEXTROSE 5%-LACTATED RINGERS 1,000 ML 250 MEQ IV (23:49)
[2025-10-23] VITALS (36 sets, daily range): BP systolic 134–178; BP diastolic 83–154; PULSE 95–117; RESP 0–48; TEMP 36.3–37.1; O2SAT 91–100
[2025-10-23 00:02] LABS: Albumin, Serum 4.1 gm/dL (3.5-5.0); Anion Gap 11 (7-16); BUN/Creatinine Ratio 10 Ratio (12-20); Blood Urea Nitrogen 14 mg/dL (9-23); Calcium 8.6 mg/dL (8.3-10.6); Calcium (Corrected) 8.6 mg/dL (8.5-10.1); Carbon Dioxide 19.5 mMol/L (20.0-31.0); Chloride 106 mMol/L (98-107); Creatinine (Component) 1.4 mg/dL (0.6-1.3); Estimated Creatinine Clearance 83.9 mL/min (>60); Glucose 147 mg/dL (74-106); Magnesium 1.3 mg/dL (1.6-2.6); Osmolality,Calculated 275 (275-295); Phosphorous 1.5 mg/dL (2.4-5.1); Potassium 4.2 mMol/L (3.4-5.1); Sodium 136 mMol/L (136-145); eGFR > 60 See Note
--- NOTE | 2025-10-23 00:07 | EKG_ITS ---
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
[2025-10-23] MEDS: Magnesium Sulfate 2 GM Ivpb 2 GM/50 ML BAG IV (00:39)
[2025-10-23 01:22] LABS: Troponin I 0.516 ng/mL (0.0-0.045)
[2025-10-23 03:19] LABS: Basophils # (Auto) 0.0 Thou/mm3 (0.0-0.2); Basophils % (Auto) 0 % (0-2.5); Eosinophils # (Auto) 0.0 Thou/mm3 (0.0-0.5); Eosinophils % (Auto) 0 % (0-10); Hematocrit 38.8 % (41.0-53.0); Hemoglobin 13.5 g/dL (13.5-16.0); Immature Granulocytes Auto 0.06 Thou/mm3 (0.00-0.00); Lactate (Lactic Acid) 1.1 mMol/L (0.4-2.0); Lymphocytes # (Auto) 1.6 Thou/mm3 (1.0-4.8); Lymphocytes % (Auto) 14 % (10-50); Mean Corpuscular HGB Conc 34.8 g/dl (31.0-37.0); Mean Corpuscular Hemoglobin 25.7 pg (25.0-35.0); Mean Corpuscular Volume 74 fL (80-100); Monocytes # (Auto) 0.6 Thou/mm3 (0.0-0.8); Monocytes % (Auto) 5 % (0-12); Neutrophils # (Auto) 9.0 Thou/mm3 (1.8-7.7); Neutrophils % (Auto) 80 % (37-80); Nucleated Red Blood Cell # 0.00 Thou/mm3 (0.00-0.00); Nucleated Red Blood Cell % 0 /100 WBC (0); Platelet Count 301 Thou/mm3 (140-440); RDW Standard Deviation 38.6 fL (35.1-43.9); Red Blood Count 5.25 Miln/mm3 (4.50-5.90); White Blood Count 11.2 Thou/mm3 (3.8-10.6)
[2025-10-23 03:34] LABS: INR 1.0 (0.9-1.3); Partial Thromboplastin Time 29.6 Seconds (22.0-36.0); Prothrombin Time 10.6 Seconds (9.0-12.2)
[2025-10-23 03:43] LABS: Alanine Aminotransferase 23 U/L (10-49); Albumin, Serum 4.1 gm/dL (3.5-5.0); Albumin/Globulin Ratio 1.4 (1.2-2.2); Alkaline Phosphatase 60 U/L (46-116); Anion Gap 10 (7-16); Aspartate Amino Transferase 41 U/L (0-34); BUN/Creatinine Ratio 9 Ratio (12-20); Bilirubin,Total 0.7 mg/dL (0.3-1.2); Blood Urea Nitrogen 13 mg/dL (9-23); Calcium 9.0 mg/dL (8.3-10.6); Calcium (Corrected) 9.0 mg/dL (8.5-10.1); Carbon Dioxide 22.0 mMol/L (20.0-31.0); Chloride 106 mMol/L (98-107); Creatinine (Component) 1.4 mg/dL (0.6-1.3); Estimated Creatinine Clearance 83.9 mL/min (>60); Globulin 3.0 gm/dL (2.3-3.5); Glucose 138 mg/dL (74-106); Magnesium 1.8 mg/dL (1.6-2.6); Osmolality,Calculated 277 (275-295); Phosphorous 1.8 mg/dL (2.4-5.1); Potassium 4.6 mMol/L (3.4-5.1); Sodium 138 mMol/L (136-145); Thyroid Stimulating Hormone 1.32 uIU/mL (0.55-4.78); Total Protein 7.1 gm/dL (5.7-8.2); eGFR > 60 See Note
[2025-10-23 03:46] LABS: Troponin I 0.698 ng/mL (0.0-0.045)
[2025-10-23] MEDS: POT CHL ADDITIVE 40 MEQ in DEXTROSE 5%-LACTATED RINGERS 1,000 ML 250 MEQ IV (04:01)
[2025-10-23] MEDS: INSULIN DEGLUDEC 5 UNIT/0.05 ML (PER 5 UNITS) 36 UNIT SC (04:25)
[2025-10-23] MEDS: RINGERS LACTATED 1000 ML 1,000 ML 100 ML IV (05:35)
[2025-10-23] MEDS: NAPH,KPH MBDB 1 PACKET (1.5 GM) PO (06:52)
[2025-10-23 07:43] LABS: Lactate (Lactic Acid) 1.4 mMol/L (0.4-2.0)
[2025-10-23] MEDS: ESCITALOPRAM OXALATE 10 MG TABLET PO (07:50)
[2025-10-23 08:10] LABS: Albumin, Serum 4.5 gm/dL (3.5-5.0); Anion Gap 14 (7-16); BUN/Creatinine Ratio 7 Ratio (12-20); Blood Urea Nitrogen 10 mg/dL (9-23); Calcium 9.2 mg/dL (8.3-10.6); Calcium (Corrected) 9.2 mg/dL (8.5-10.1); Carbon Dioxide 20.0 mMol/L (20.0-31.0); Chloride 102 mMol/L (98-107); Creatinine (Component) 1.4 mg/dL (0.6-1.3); Estimated Creatinine Clearance 83.9 mL/min (>60); Glucose 168 mg/dL (74-106); Magnesium 1.8 mg/dL (1.6-2.6); Osmolality,Calculated 274 (275-295); Phosphorous 2.3 mg/dL (2.4-5.1); Potassium 4.4 mMol/L (3.4-5.1); Sodium 136 mMol/L (136-145); eGFR > 60 See Note
[2025-10-23] MEDS: SIROLIMUS 0.5 MG TABLET PO (08:41)
[2025-10-23] MEDS: ASPIRIN EC 81 MG TABEC PO (08:42)
[2025-10-23] MEDS: FLUCONAZOLE 100 MG TABLET 200 MG PO (08:42)
[2025-10-23] MEDS: CLOPIDOGREL BISULFATE 75 MG TABLET PO (08:42)
[2025-10-23] MEDS: DEXTROSE 5%-LACTATED RINGERS 1,000 ML 100 ML IV (09:02)
[2025-10-23 09:51] LABS: Troponin I 0.630 ng/mL (0.0-0.045)
[2025-10-23] MEDS: FENOFIBRATE 145 MG TABLET (NON-FORMULARY) PO (09:52)
[2025-10-23] MEDS: TACROLIMUS 0.5 MG CAPSULE 1.5 MG PO (09:52)
--- NOTE | 2025-10-23 10:50 | PC.SS ---
RATINGS ANALYST attempted to complete initial with patient however patient was not alert. RATINGS ANALYST spoke to bedside nurse Cassy, who stated patient is a downgrade to tele.
--- NOTE | 2025-10-23 10:53 | PC.SS ---
SS update: PRESS CLIPPER attempted to complete initial wit patient, patient not alert, PRESS CLIPPER spoke to bedside nurse Malvin who stated patient is a downgrade to tele.
--- NOTE | 2025-10-23 11:15 | ESPR_ITS ---
<Statement entered by Nieves Malik MD - 10/23/25 18:05> I have reviewed the note and agree with the resident's assessment & plan with exceptions as below. I have personally reviewed labs, imaging, home meds/prior records, examined the patient, formulated and discussed management plan with the IM team. Pt examined at [facility] today. Overnight, gap closed from 12-10. 12 units within the 1st and 2nd gap closing was used within that 4-hour window and this was multiplied by 6 to approximate a 24-hour period which gives him 2 units and thus 36 units were given for transition. He was also started on sliding scale insulin. Bedside glucose checks every 6 hours, below 200 at the time when seen. Patient was given 1 1 bag of D5 LR as patient was not eating at the time of transition. Patient's WAYNE improving and lactic acidosis had resolved. Patient was having some chest pain, likely related to demand ischemia, troponin had peaked at 0.63 and down trended. EKGs were reviewed and did not show any obvious segments of ST changes at the time. Patient recommended to follow-up with his education teacher outpatient. Leukocytosis improving. Patient was downgraded to the hospitalist team. Continuing with cardiac transplant medicines including sirolimus and Prograf. #NSTEMI Type II, likely related to demand ischemia #Hx of cardiomyopathy s/p heart transplant #Hypertension #Hyperlipidemia #Hx of CAD #Tachypnea, improving #HAGMA without adequate compensation, resolved #Ketoacidosis, resolved #Lactic Acidosis, resolved #Acute kidney injury on CKD Stage III, improving #Leukocytosis, improving #DKA, resolved #Insulin Dependent Type II Diabetes mellitus, non-controlled #Hx of Valley Fever Prophylaxis #Hx of Depression Nieves Malik, PGY-2 Internal Medicine This document was transcribed using voice recognition technology. Minor inaccuracies may be present. <Statement entered by Swapna Lanier MD - 10/23/25 12:14> TOTAL TIME: 45MINUTES ON DIRECT MEDICAL CARE, MANAGEMENT - COORDINATION AND COUNSELING > 50% OF TOTAL TIME I saw and evaluated the patient. I reviewed the resident?s note and agree with findings and plan as documented in the resident?s note. DKA resolved EKG without acute coronary syndrome findings Chest pressure/pain resolved Continue coronary artery disease Home medications Resume transplant meds Stable to transfer out of ICU Documentation for date of: 10/23/25 Subjective Subjective Interval history: Shubham Ruiz is a 30 y/o male with PMHx of cardiomyopathy (status post heart transplant at [facility] in 2000), insulin-dependent type 2 diabetes mellitus, hypertension, hyperlipidemia, CAD status post PCI, CKD stage III, depression who comes in for an evaluation after an acute onsets of nausea, dry heaving and generalized weakness onset this morning, has happened before, no one around him feeling like this. Patient reports that decided to come to the ER for further evaluation after having the symptoms. He does not have any headache, however endorses some chest pain that is generalized, however no shortness of breath at this time. He says that he takes 45 units of Lantus at home in addition to sliding scale. He does have a printed circuit boards pinner Dr. Londono in [place]. He says he checks his sugars every day, however does not know what the numbers are at home. He says he has insulin at home. Says he takes all his medicines as prescribed, however he recently had his metformin discontinued by his physician. He says his education teacher ordered at [facility] and that he has an appointment on the of this month. Denies any recent sick contacts or recent travel. He has no other complaints at this time. ED course: Patient arrived to the ED with a temperature of 97.9, heart rate 128, respiratory rate 28, elevated blood pressure at 150/85, saturating 99% on room air. Patient was worked up and was found to have a white count of 18, hemoglobin 13.6, sodium 140, potassium 3.0, chloride 101, bicarbonate 12, BUN/creatinine 17 and 1.7 respectively, glucose 317, anion gap 27, GFR 55, lactate 7.4, magnesium 1.8, troponin negative x 1, beta hydroxybutyrate 5.3, procalcitonin 0.2. EKG was done and had showed tachycardia, QT 350, however it was noted that patient had went into A-fib on telemetry while in the ED and was given Cardizem 15 mg at that time. Patient had chest x-ray was within normal limits, and also abdomen/pelvis CT which showed fluid distended stomach. Patient was given 5 units of insulin, Zofran x 1, started on 40 mill equivalents of IV potassium, morphine 4 mg x 1, given 2 L of sodium chloride bolus, sodium phosphate x 1, Rocephin x 1. ICU was consulted for medical management of DKA. Patient was admitted to the ICU for further management. PMHx: As above Surgeries: Heart transplant usually in 2000, PCI Meds: Aspirin, Plavix 75 mg, Lexapro 10 mg, Protonix, Zyrtec, Crestor 20 mg, fluconazole 200 mg, tacrolimus 0.5 mg 3 in the morning, 2 in the evening, sirolimus 1 mg daily, amlodipine 10 mg, Jardiance 25 mg Allergies: No known allergies Family Hx: Says on his dad's side of family, he has multiple cousins that have had cardiac transplants. His parents do not have any heart problems. He is unsure of the exact medical condition, however says it is cardiomyopathy of some sort and genetic. Does not think it is HCOM. Social Hx: Lives at home with his parents. Does not work. Has no kids. Does not smoke, drink or do illicit drugs. He is able to walk on his own. His primary care doctor is Dr. Esteves. No recent travel 10/23/2025 Over night gap closed twice, over the 4 hours gap was closed with 12 units of insulin. Patient remains hypertensive (148/83), tachycardic (HR 102), and tachypnic (RR 35). Trops have downtrended. Patient currently on 5 LR at 100 cc/h. He is not eating much of his meals. His abdominal pain is reproducible to palpation and his chest discomfort is reproducible on mid-sternal palpation. Patient safe to be downgraded to floors. Exam Vital Signs Temp Pulse Resp BP Pulse Ox O2 Del Method O2 Flow Rate 98.1 F 105 H 15 149/98 H 100 Room Air 2 10/23/25 08:00 10/23/25 09:00 10/23/25 09:00 10/23/25 09:00 10/23/25 09:00 10/22/25 21:42 10/23/25 00:49 Narrative Exam General: AAOx3, in mild disomfort, has multiple tattoos as well as body HEENT: Dry mucous membranes, conjunctiva clear, EOMI, PERRLA, Cardiovascular: Midline sternotomy scar, appears to have systolic ejection murmur most pronounced at right upper sternal border, S1-S2, reproducible chest pain Pulmonary: CTAB bilat no cough, tachypneic GI: No tenderness to light palpation, no guarding, rigidity, rebound tenderness or distension, no abdominal scars. Reproducible pain on deep palpation of epigastrium and mid-sternum. Extremities: No presence of trace or pitting edema in lower extremities bilaterally, dorsalis pedis pulses +2 bilaterally Neuro: AAOx3, no focal motor or sensory deficits in the UE or LE bilat Psych: Able to cooperate Objective Labs 10/23/25 03:04 10/23/25 15:44 Labs: Laboratory Results - last 24 hr 10/22/25 10/22/25 10/22/25 11:33 12:40 14:06 WBC 18.9 H RBC 5.39 Hgb 13.6 Hct 40.8 L MCV 76 L MCH 25.2 MCHC 33.3 RDW Std Deviation 38.4 Plt Count 384 Neut % (Auto) 81 H Lymph % (Auto) 13 Avery % (Auto) 5 Eos % (Auto) 0 Baso % (Auto) 1 Neut # (Auto) 15.3 H Lymph # (Auto) 2.4 Avery # (Auto) 0.9 H Eos # (Auto) 0.0 Baso # (Auto) 0.1 Immature Gran # (Auto) 0.12 H Absolute Nucleated RBC 0.00 Immature Gran % 1 H Nucleated RBC % 0 PT INR APTT Puncture Site ABG pH ABG pCO2 ABG pO2 ABG HCO3 ABG O2 Saturation ABG Base Excess FiO2 Sodium 140 Potassium 3.0 L Chloride 101 Carbon Dioxide 12.1 L* Anion Gap 27 H BUN 17 Creatinine 1.7 H Estim Creat Clear Calc 69.1 eGFR 55 L BUN/Creatinine Ratio 10 L Glucose [address] Glu mg/dL 272 H Hemoglobin A1c 11.1 H Calculated Osmolality 292 Lactic Acid 7.4 H* Calcium 9.4 Corrected Calcium 9.4 Phosphorus Magnesium 1.8 Total Bilirubin 0.8 AST 40 H ALT 28 Alkaline Phosphatase 74 Troponin I < 0.020 B-Natriuretic Peptide 28 Total Protein 8.1 Albumin 4.8 Globulin 3.3 Albumin/Globulin Ratio 1.5 Lipase 33 Beta-Hydroxybutyrate/Acetoacetate 5.3 H Procalcitonin 0.20 TSH Ur Collection Type Urine Color Urine Clarity Urine pH Ur Specific [place] Urine Protein Urine Glucose (UA) Urine Ketones Urine Blood Urine Nitrite Urine Bilirubin Urine Urobilinogen (Auto) Ur Leukocyte Esterase Urine RBC Urine WBC Ur Squamous Epith Cells Urine Bacteria Ur Culture Indicated? Urine Opiates Screen Urine Fentanyl Screen Ur Barbiturates Screen U Amphetamin/Meth Scrn U Benzodiazepines Scrn U Cocaine Metab Screen U Marijuana (THC) Screen Ethyl Alcohol < 3.0 10/22/25 10/22/25 10/22/25 14:26 15:13 15:16 WBC RBC Hgb Hct MCV MCH MCHC RDW Std Deviation Plt Count Neut % (Auto) Lymph % (Auto) Avery % (Auto) Eos % (Auto) Baso % (Auto) Neut # (Auto) Lymph # (Auto) Avery # (Auto) Eos # (Auto) Baso # (Auto) Immature Gran # (Auto) Absolute Nucleated RBC Immature Gran % Nucleated RBC % PT INR APTT Puncture Site Right Brachial ABG pH 7.22 L ABG pCO2 30 L ABG pO2 114 H ABG HCO3 12 L ABG O2 Saturation 98 ABG Base Excess -14 L FiO2 21 Sodium 139 Potassium 3.4 Chloride 103 Carbon Dioxide 10.1 L* Anion Gap 26 H BUN 19 Creatinine 1.8 H Estim Creat Clear Calc 65.3 eGFR 51 L BUN/Creatinine Ratio 11 L Glucose [address] Glu mg/dL Hemoglobin A1c Calculated Osmolality 294 Lactic Acid 8.4 H* Calcium 8.6 Corrected Calcium 8.6 Phosphorus 4.7 Magnesium Total Bilirubin AST ALT Alkaline Phosphatase Troponin I B-Natriuretic Peptide Total Protein Albumin 4.6 Globulin Albumin/Globulin Ratio Lipase Beta-Hydroxybutyrate/Acetoacetate Procalcitonin TSH Ur Collection Type Urine Color Urine Clarity Urine pH Ur Specific [place] Urine Protein Urine Glucose (UA) Urine Ketones Urine Blood Urine Nitrite Urine Bilirubin Urine Urobilinogen (Auto) Ur Leukocyte Esterase Urine RBC Urine WBC Ur Squamous Epith Cells Urine Bacteria Ur Culture Indicated? Urine Opiates Screen Urine Fentanyl Screen Ur Barbiturates Screen U Amphetamin/Meth Scrn U Benzodiazepines Scrn U Cocaine Metab Screen U Marijuana (THC) Screen Ethyl Alcohol 10/22/25 10/22/25 10/22/25 18:13 19:18 19:51 WBC RBC Hgb Hct MCV MCH MCHC RDW Std Deviation Plt Count Neut % (Auto) Lymph % (Auto) Avery % (Auto) Eos % (Auto) Baso % (Auto) Neut # (Auto) Lymph # (Auto) Avery # (Auto) Eos # (Auto) Baso # (Auto) Immature Gran # (Auto) Absolute Nucleated RBC Immature Gran % Nucleated RBC % PT INR APTT Puncture Site ABG pH ABG pCO2 ABG pO2 ABG HCO3 ABG O2 Saturation ABG Base Excess FiO2 Sodium 139 Potassium 3.8 Chloride 105 Carbon Dioxide 17.1 L Anion Gap 17 H BUN 17 Creatinine 1.6 H Estim Creat Clear Calc 73.4 eGFR 59 L BUN/Creatinine Ratio 11 L Glucose [address] Glu mg/dL Hemoglobin A1c Calculated Osmolality 281 Lactic Acid 3.7 H Calcium 9.0 Corrected Calcium 9.0 Phosphorus 2.2 L Magnesium 1.4 L Total Bilirubin AST ALT Alkaline Phosphatase Troponin I 0.162 H* B-Natriuretic Peptide Total Protein Albumin 4.5 Globulin Albumin/Globulin Ratio Lipase Beta-Hydroxybutyrate/Acetoacetate Procalcitonin TSH Ur Collection Type Clean Catch Urine Color Lt-Yellow Urine Clarity Clear Urine pH 6.0 Ur Specific [place] 1.021 Urine Protein 1+ A Urine Glucose (UA) 4+ A Urine Ketones 1+ A Urine Blood Trace Urine Nitrite Negative Urine Bilirubin Negative Urine Urobilinogen (Auto) Negative Ur Leukocyte Esterase Negative Urine RBC < 1 Urine WBC 3 Ur Squamous Epith Cells < 1 Urine Bacteria None Ur Culture Indicated? Not Indicated Urine Opiates Screen Positive A Urine Fentanyl Screen Negative Ur Barbiturates Screen Negative U Amphetamin/Meth Scrn Negative U Benzodiazepines Scrn Negative U Cocaine Metab Screen Negative U Marijuana (THC) Screen Positive A Ethyl Alcohol 10/22/25 10/23/25 10/23/25 23:21 03:04 07:31 WBC 11.2 H D RBC 5.25 Hgb 13.5 Hct 38.8 L MCV 74 L MCH 25.7 MCHC 34.8 RDW Std Deviation 38.6 Plt Count 301 D Neut % (Auto) 80 Lymph % (Auto) 14 Avery % (Auto) 5 Eos % (Auto) 0 Baso % (Auto) 0 Neut # (Auto) 9.0 H Lymph # (Auto) 1.6 Avery # (Auto) 0.6 Eos # (Auto) 0.0 Baso # (Auto) 0.0 Immature Gran # (Auto) 0.06 H Absolute Nucleated RBC 0.00 Immature Gran % 1 H Nucleated RBC % 0 PT 10.6 INR 1.0 APTT 29.6 Puncture Site ABG pH ABG pCO2 ABG pO2 ABG HCO3 ABG O2 Saturation ABG Base Excess FiO2 Sodium 136 138 136 Potassium 4.2 4.6 4.4 Chloride 106 106 102 Carbon Dioxide 19.5 L 22.0 20.0 Anion Gap 11 10 14 BUN 14 13 10 Creatinine 1.4 H 1.4 H 1.4 H Estim Creat Clear Calc 83.9 83.9 83.9 eGFR > 60 > 60 > 60 BUN/Creatinine Ratio 10 L 9 L 7 L Glucose 147 H [address] Glu mg/dL Hemoglobin A1c Calculated Osmolality 275 277 274 L Lactic Acid 1.7 1.1 1.4 Calcium 8.6 9.0 9.2 Corrected Calcium 8.6 9.0 9.2 Phosphorus 1.5 L 1.8 L 2.3 L Magnesium 1.3 L 1.8 1.8 Total Bilirubin 0.7 AST 41 H ALT 23 Alkaline Phosphatase 60 Troponin I 0.516 H* D 0.698 H* B-Natriuretic Peptide Total Protein 7.1 Albumin 4.1 4.1 4.5 Globulin 3.0 Albumin/Globulin Ratio 1.4 Lipase Beta-Hydroxybutyrate/Acetoacetate Procalcitonin TSH 1.32 Ur Collection Type Urine Color Urine Clarity Urine pH Ur Specific [place] Urine Protein Urine Glucose (UA) Urine Ketones Urine Blood Urine Nitrite Urine Bilirubin Urine Urobilinogen (Auto) Ur Leukocyte Esterase Urine RBC Urine WBC Ur Squamous Epith Cells Urine Bacteria Ur Culture Indicated? Urine Opiates Screen Urine Fentanyl Screen Ur Barbiturates Screen U Amphetamin/Meth Scrn U Benzodiazepines Scrn U Cocaine Metab Screen U Marijuana (THC) Screen Ethyl Alcohol 10/23/25 09:21 WBC RBC Hgb Hct MCV MCH MCHC RDW Std Deviation Plt Count Neut % (Auto) Lymph % (Auto) Avery % (Auto) Eos % (Auto) Baso % (Auto) Neut # (Auto) Lymph # (Auto) Avery # (Auto) Eos # (Auto) Baso # (Auto) Immature Gran # (Auto) Absolute Nucleated RBC Immature Gran % Nucleated RBC % PT INR APTT Puncture Site ABG pH ABG pCO2 ABG pO2 ABG HCO3 ABG O2 Saturation ABG Base Excess FiO2 Sodium Potassium Chloride Carbon Dioxide Anion Gap BUN Creatinine Estim Creat Clear Calc eGFR BUN/Creatinine Ratio Glucose Estimated Ave Glu mg/dL Hemoglobin A1c Calculated Osmolality Lactic Acid Calcium Corrected Calcium Phosphorus Magnesium Total Bilirubin AST ALT Alkaline Phosphatase Troponin I 0.630 H* B-Natriuretic Peptide Total Protein Albumin Globulin Albumin/Globulin Ratio Lipase Beta-Hydroxybutyrate/Acetoacetate Procalcitonin TSH Ur Collection Type Urine Color Urine Clarity Urine pH Ur Specific [place] Urine Protein Urine Glucose (UA) Urine Ketones Urine Blood Urine Nitrite Urine Bilirubin Urine Urobilinogen (Auto) Ur Leukocyte Esterase Urine RBC Urine WBC Ur Squamous Epith Cells Urine Bacteria Ur Culture Indicated? Urine Opiates Screen Urine Fentanyl Screen Ur Barbiturates Screen U Amphetamin/Meth Scrn U Benzodiazepines Scrn U Cocaine Metab Screen U Marijuana (THC) Screen Ethyl Alcohol ABG Interpretation ABG results: 10/22/25 14:26 ABG pH 7.22 L ABG pCO2 30 L ABG pO2 114 H ABG HCO3 12 L ABG O2 Saturation 98 ABG Base Excess -14 L Quality Measures Quality Measures VTE prophylaxis Assessment & Plan Assessment Current Active Medications: Generic Name Dose Route Start Last Admin Trade Name Freq PRN Reason Stop Dose Admin Acetaminophen 650 mg 10/22/25 15:01 Acetaminophen 325 Mg Tablet PO 11/21/25 15:00 Q4HR PRN PAIN SCALE 1-3 (mild Amlodipine Besylate 10 mg 10/22/25 17:15 10/23/25 08:42 Amlodipine Besylate 5 Mg Tablet PO 11/21/25 17:14 10 mg QDAY DYLON Administration Aspirin 81 mg 10/22/25 17:15 10/23/25 08:42 Aspirin Ec 81 Mg Tabec PO 11/21/25 17:14 81 mg QDAY DYLON Administration Atorvastatin Calcium 40 mg 10/22/25 21:00 10/22/25 20:31 Atorvastatin Calcium 20 Mg Tablet PO 11/21/25 20:59 40 mg HS DYLON Administration Clopidogrel Bisulfate 75 mg 10/22/25 17:15 10/23/25 08:42 Clopidogrel Bisulfate 75 Mg Tablet PO 11/21/25 17:14 75 mg QDAY DYLON Administration Sirolimus 0.5 Mg 0 ea 10/23/25 09:00 10/23/25 08:41 Tablet PO 11/22/25 08:59 2 tablet QD DYLON Administration Dextrose 25 ml 10/23/25 04:10 Dextrose 50%-Water Inj 50 Ml Syringe IV 11/22/25 04:09 Q15MIN PRN BG 50-70 responsive npo pt Dextrose 50 ml 10/23/25 04:10 Dextrose 50%-Water Inj 50 Ml Syringe IV 11/22/25 04:09 Q15MIN PRN BG <50 OR BG <70 & pt unresponsive Escitalopram Oxalate 10 mg 10/23/25 08:00 10/23/25 08:07 Escitalopram Oxalate 10 Mg Tablet PO 11/22/25 07:59 Not Given QDAY DYLON Fenofibrate 145 mg 10/22/25 17:15 10/23/25 09:52 Fenofibrate 145 Mg Tablet (Non-Formulary) PO 11/21/25 17:14 145 mg QDAY DYLON Administration Fluconazole 200 mg 10/22/25 17:15 10/23/25 08:42 Fluconazole 100 Mg Tablet PO 10/29/25 17:14 200 mg QDAY DYLON Administration Glucagon 1 mg 10/23/25 04:10 Glucagon Inj 1 Mg Vial IM Q15MIN PRN BG <70, and no IV access Potassium Chloride 20 meq/ 1,010 mls @ 250 mls/hr 10/22/25 15:01 10/22/25 19:31 Dextrose/Lactated Ringer's IV 11/21/25 15:00 250 mls/hr .Q4H3M PRN Administration K LEVEL 3.3 TO 5.3 mM/L Potassium Chloride 40 meq/ 1,020 mls @ 250 mls/hr 10/22/25 15:01 10/23/25 05:30 Dextrose/Lactated Ringer's IV 11/21/25 15:00 0 mls/hr .Q4H5M PRN Infusion K LEVEL < 3.3mM/L Potassium Chloride 10 meq in 100 mls @ 100 mls/hr 10/22/25 15:01 Kcl Ivpb IV 11/21/25 15:00 .Q1H PRN IF POTASSIUM LESS THAN 3.3 Magnesium Sulfate 2 gm in 50 mls @ 25 mls/hr 10/22/25 15:01 10/23/25 02:48 Magnesium Sulfate Ivpb IV 11/21/25 15:00 Infused .Q2H PRN Infusion PER DKA PROTOCOL Insulin Human Regular 100 unit 100 mls @ 8.301 mls/hr 10/22/25 15:01 10/23/25 05:30 / Sodium Chloride IV 11/21/25 15:00 0 unit/kg/hr .Q12H3M PRN 0 mls/hr PER PROTOCOL Titration Protocol 0.1 UNIT/KG/HR Dextrose/Lactated Ringer's 1,000 mls @ 250 mls/hr 10/22/25 15:01 D5-Lr IV 11/21/25 15:00 .Q4H PRN PER PROTOCOL Lactated Ringer's 1,000 mls @ 250 mls/hr 10/22/25 15:01 Lactated Ringers IV 10/23/25 15:00 .Q4H PRN PER PROTOCOL Potassium Chloride 20 meq/ 1,010 mls @ 250 mls/hr 10/22/25 15:01 Lactated Ringer's IV 11/21/25 15:00 .Q4H3M PRN K LEVEL 3.3 TO 5.3mM/L Potassium Chloride 40 meq/ 1,020 mls @ 250 mls/hr 10/22/25 15:01 Lactated Ringer's IV 11/21/25 15:00 .Q4H5M PRN K LEVEL < 3.3 mM/L Potassium Chloride 10 meq in 100 mls @ 50 mls/hr 10/22/25 15:01 Kcl Ivpb IV 11/21/25 15:00 PRN PRN K LEVEL 3.3 to 5.3 & BG > 200 Potassium Phosphate 15 mmol in 250 mls @ 62.5 mls/hr 10/22/25 15:01 Pot Phos 15 Mmol In Ns 250 Ml IV 11/21/25 15:00 PRN PRN Phosphate <= 1mg/dL Sodium Phosphate 15 mmol/ 255 mls @ 62.5 mls/hr 10/22/25 15:01 Sodium Chloride IV 11/21/25 15:00 .Q4H5M PRN Phosphate <= 1mg/dL and K> than 5.3 Dextrose/Lactated Ringer's 1,000 mls @ 100 mls/hr 10/23/25 08:45 10/23/25 09:02 D5-Lr IV 10/23/25 18:44 100 mls/hr .Q10H DYLON Administration Insulin Degludec 36 unit 10/23/25 04:10 10/23/25 04:25 Insulin Degludec 5 Unit/0.05 Ml (Per 5 Units) SC 11/22/25 04:09 36 unit QDAY DYLON Administration Insulin Human Lispro 0 unit 10/23/25 07:30 10/23/25 07:27 Insulin Lispro (Admelog) 1 Unit/0.01 Ml Unit SC 11/22/25 07:29 Not Given AC DYLON Protocol Ondansetron HCl 4 mg 10/22/25 22:41 10/22/25 23:32 Ondansetron Inj 2 Mg/Ml Inj 2 Ml IVP 11/21/25 22:40 4 mg Q8HR PRN Administration NAUSEA OR VOMITING Protocol Pantoprazole Sodium 40 mg 10/23/25 08:00 10/23/25 08:07 Pantoprazole Inj 40 Mg Vial IVP 11/22/25 07:59 Not Given QDAY DYLON Sodium Bicarbonate 50 ml 10/22/25 15:01 Sodium Bicarb Inj 8.4% Syr 50 Ml Syringe IV 11/21/25 15:00 Q4HR PRN For ph <= to 7.0 Tacrolimus 1.5 mg 10/22/25 17:15 10/23/25 09:52 Tacrolimus 0.5 Mg Capsule PO 11/21/25 17:14 1.5 mg QDAY DYLON Administration Tacrolimus 1 mg 10/22/25 21:00 10/22/25 20:31 Tacrolimus 1 Mg Capsule PO 11/21/25 20:59 1 mg HS DYLON Administration Plan Assessment: Shubham Ruiz is a 30 y/o male with PMHx of cardiomyopathy (status post heart transplant at [facility] in 2000), insulin-dependent type 2 diabetes mellitus, hypertension, hyperlipidemia, CAD status post PCI, CKD stage III, depression who was admitted to the ICU for DKA. Anion gap closed twice, off the insulin drip at 5:30 am 10/23, trops are downtrending, safe to be downgraded to floor,s Neurology Stable Cardiology: #Chest Pain DDx: Non-cardiac, GERD, reproducible, Cardiac Dx: Troponin, physical exam. Initial troponin negative. Physical exam reveals reproducible chest pain Rx: Repeat troponin, GI cocktail RRX: If patient has worsening chest pain #Tropinemia - Resolved DDx NSTEMI type II demand ischemia Dx No conclusive STEMI in EKG, physical exam beingn, trops downtrended #Hx of cardiomyopathy s/p heart transplant Plan: ? Resuming home Tacrolimis, and Sirolimus #Hypertension #Hyperlipidemia Chronic Plan: ? Resuming home amlodipine 10 mg ? Resumed dose equivalent Lipitor 40 mg of home Crestor 20 mg at bedtime ? Resuming home fenofibrate 145 mg qday #Hx of CAD Had 3 stents in 2022 Plan: ? Resuming home ASA and Plavix Pulmonary: #Tachypnea - improving DDx: Likely respiratory alkalosis compensation to DKA or 2/2 pain/ abdominal discomfort Dx: Physical exam, Vitals, ABG Rx: Treat underlying DKA RRX: If DKA is not treated appropriately Gastrointestinal: #Hx of GERD Patient has reproducible epigastric and midsternal pain with downtrending trops. Plan: -CTM -IV protonix Nephrology: #HAGMA without adequate compensation - resolved #Ketoacidosis - resolved DDx: Ketoacidosis, lactic acidosis AG 26, pH 7.22 Winter's: 24-28 (pCO2 not renally compensated since it is 30), Delta-Delta= 1.16 -> HAGMA Dx: CMP, ABG, Rx: Treat underlying problem of DKA with drip (listed below), IV fluid boluses RRX: If DKA is not treated appropriately #Lactic Acidosis - resolved DDx: Type A vs B. Pt does not appear to have sepsis at this time, however Lactate of 7.2 is high for a patient with DKA Dx: Lactic Acidosis, CMP Rx: IV fluid bolus, treat underlying DKA, trend lactate Q4h RRX: If there is another cause of for the Lactic Acidosis #Acute kidney injury on CKD Stage III DDx: Pre-renal, post-renal or intrinsic. Appears to be pre-renal in nature Dx: CMP, UOP, (Creatinine baseline appears to be 1.4) Rx: IV fluid boluses RRX: If it is not a pre renal cause and pt has a different reason for WAYNE Genitourinary: Stable Hematology: #Leukocytosis - resolved DDx: Reactive, Stress related, Infection Dx: CBC, CXR, U/A w/culture if indicated Rx: CBC RRX: If patient has infection that is not treated Endocrine: #DKA - resolved DDx: Mild, Moderate, Severe. Likely Moderate w/ pH 7.22, Beta-Hydroxy elevation (5.3), AG 26, Bicarbonate at 12, and Urine Ketone presence. A1c 11.1 Dx: ABG, A1c, CMP, Bedside glucose check, Beta-Hydroxybutyrate, U/A, Anion Gap Rx: Insulin Drip Protocol (0.1 units/kg), Bedside Glucose checks q1h, Potassium replenishment as needed with goal above 3.5, renal panel every 4 hours, RRX: If not enough insulin is given #Insulin Dependent Type II Diabetes mellitus, non-controlled A1c 11.1 Plan: ? Insulin Drip as above ? Hypoglycemic protocol in place ? Glucose checks q1h as above Infectious Disease: #Hx of Valley Fever Prophylaxis 2/2 transplant history Plan: ? Resumed home prophylaxis of Diflucan 200 mg Skin: No active problems at this time Psych: #Hx of Depression Plan: ? Resume home Lexapro 10 mg qday #ICU Health maintenance Mechanical ventilation: none Sedation: None Diet: Low carb DVT prophylaxis: Heparin GI prophylaxis: Protonix Vill[place]uerte: None Lines: PIV Antibiotics: None CODE STATUS: Full Patient seen and care discussed with my attending physician, Dr. Lanier, and supervising resident Nieves Malik MD Note written by Bart Nicholson MD PGY-1
[2025-10-23] MEDS: INSULIN LISPRO (AdmeLOG) 1 UNIT/0.01 ML UNIT SC ×3 (11:34→21:11)
[2025-10-23 11:55] LABS: Lactate (Lactic Acid) 1.5 mMol/L (0.4-2.0)
--- NOTE | 2025-10-23 12:11 | PD.RESPRO ---
Documentation for date of: 10/23/25 Subjective Subjective Interval history: Shubham Ruiz is a 30 y/o male with PMHx of cardiomyopathy (status post heart transplant at [facility] in 2000), insulin-dependent type 2 diabetes mellitus, hypertension, hyperlipidemia, CAD status post PCI, CKD stage III, depression who comes in for an evaluation after an acute onsets of nausea, dry heaving and generalized weakness onset morning of 10/22/25. He does not have any headache, however endorses some chest pain that is generalized, however no shortness of breath at this time. He says that he takes 45 units of Lantus at home in addition to sliding scale. 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 Londono in [place]. Patient is compliant with his medicines as prescribed, however he recently had his metformin discontinued by his physician. He says his flow coordinator ordered at [facility] and that he has an appointment on the of this month. In the ED, he was found to have a white count of 18, potassium 3.0, glucose 317, anion gap 27, and lactate 7.4. beta hydroxybutyrate 5.3. Patient was given 5 units of insulin, started on 40 mill equivalents of IV potassium, morphine 4 mg x 1, and given 2 L of sodium chloride bolus, sodium phosphate x 1, Rocephin x 1. He was admitted initially to the ICU on 10/22/25 for medical management of DKA. He was downgraded to MedSurg on 10/23/25. 10/23/2025 (ICU): Over night gap closed twice, over the 4 hours gap was closed with 12 units of insulin. Patient remains hypertensive (148/83), tachycardic (HR 102), and tachypnic (RR 35). Trops have downtrended. Patient currently on 5 LR at 100 cc/h. He is not eating much of his meals. His abdominal pain is reproducible to palpation and his chest discomfort is reproducible on mid-sternal palpation. Patient safe to be downgraded to floors. 10/23/25: Downgraded from ICU. VSS. BG 245. Exam Vital Signs Temp Pulse Resp BP Pulse Ox O2 Del Method O2 Flow Rate 98.1 F 98 12 134/88 H 99 Room Air 2 10/23/25 08:00 10/23/25 11:00 10/23/25 11:00 10/23/25 11:00 10/23/25 11:00 10/22/25 21:42 10/23/25 00:49 Objective Labs 10/24/25 05:50 10/24/25 05:50 Labs: Laboratory Results - last 24 hr 10/22/25 10/22/25 10/22/25 11:33 12:40 14:06 WBC RBC Hgb Hct MCV MCH MCHC RDW Std Deviation Plt Count Neut % (Auto) Lymph % (Auto) [place] % (Auto) Eos % (Auto) Baso % (Auto) Neut # (Auto) Lymph # (Auto) [place] # (Auto) Eos # (Auto) Baso # (Auto) Immature Gran # (Auto) Absolute Nucleated RBC Immature Gran % Nucleated RBC % PT INR APTT Puncture Site ABG pH ABG pCO2 ABG pO2 ABG HCO3 ABG O2 Saturation ABG Base Excess FiO2 Sodium 140 Potassium 3.0 L Chloride 101 Carbon Dioxide 12.1 L* Anion Gap 27 H BUN 17 Creatinine 1.7 H Estim Creat Clear Calc 69.1 eGFR 55 L BUN/Creatinine Ratio 10 L Glucose [address] Glu mg/dL 272 H Hemoglobin A1c 11.1 H Calculated Osmolality 292 Lactic Acid 7.4 H* Calcium 9.4 Corrected Calcium 9.4 Phosphorus Magnesium 1.8 Total Bilirubin 0.8 AST 40 H ALT 28 Alkaline Phosphatase 74 Troponin I < 0.020 B-Natriuretic Peptide 28 Total Protein 8.1 Albumin 4.8 Globulin 3.3 Albumin/Globulin Ratio 1.5 Lipase 33 Beta-Hydroxybutyrate/Acetoacetate 5.3 H Procalcitonin 0.20 TSH Ur Collection Type Urine Color Urine Clarity Urine pH Ur Specific [place] Urine Protein Urine Glucose (UA) Urine Ketones Urine Blood Urine Nitrite Urine Bilirubin Urine Urobilinogen (Auto) Ur Leukocyte Esterase Urine RBC Urine WBC Ur Squamous Epith Cells Urine Bacteria Ur Culture Indicated? Urine Opiates Screen Urine Fentanyl Screen Ur Barbiturates Screen U Amphetamin/Meth Scrn U Benzodiazepines Scrn U Cocaine Metab Screen U Marijuana (THC) Screen Ethyl Alcohol < 3.0 10/22/25 10/22/25 10/22/25 14:26 15:13 15:16 WBC RBC Hgb Hct MCV MCH MCHC RDW Std Deviation Plt Count Neut % (Auto) Lymph % (Auto) [place] % (Auto) Eos % (Auto) Baso % (Auto) Neut # (Auto) Lymph # (Auto) [place] # (Auto) Eos # (Auto) Baso # (Auto) Immature Gran # (Auto) Absolute Nucleated RBC Immature Gran % Nucleated RBC % PT INR APTT Puncture Site Right Brachial ABG pH 7.22 L ABG pCO2 30 L ABG pO2 114 H ABG HCO3 12 L ABG O2 Saturation 98 ABG Base Excess -14 L FiO2 21 Sodium 139 Potassium 3.4 Chloride 103 Carbon Dioxide 10.1 L* Anion Gap 26 H BUN 19 Creatinine 1.8 H Estim Creat Clear Calc 65.3 eGFR 51 L BUN/Creatinine Ratio 11 L Glucose [address] Glu mg/dL Hemoglobin A1c Calculated Osmolality 294 Lactic Acid 8.4 H* Calcium 8.6 Corrected Calcium 8.6 Phosphorus 4.7 Magnesium Total Bilirubin AST ALT Alkaline Phosphatase Troponin I B-Natriuretic Peptide Total Protein Albumin 4.6 Globulin Albumin/Globulin Ratio Lipase Beta-Hydroxybutyrate/Acetoacetate Procalcitonin TSH Ur Collection Type Urine Color Urine Clarity Urine pH Ur Specific [place] Urine Protein Urine Glucose (UA) Urine Ketones Urine Blood Urine Nitrite Urine Bilirubin Urine Urobilinogen (Auto) Ur Leukocyte Esterase Urine RBC Urine WBC Ur Squamous Epith Cells Urine Bacteria Ur Culture Indicated? Urine Opiates Screen Urine Fentanyl Screen Ur Barbiturates Screen U Amphetamin/Meth Scrn U Benzodiazepines Scrn U Cocaine Metab Screen U Marijuana (THC) Screen Ethyl Alcohol 10/22/25 10/22/25 10/22/25 18:13 19:18 19:51 WBC RBC Hgb Hct MCV MCH MCHC RDW Std Deviation Plt Count Neut % (Auto) Lymph % (Auto) [place] % (Auto) Eos % (Auto) Baso % (Auto) Neut # (Auto) Lymph # (Auto) [place] # (Auto) Eos # (Auto) Baso # (Auto) Immature Gran # (Auto) Absolute Nucleated RBC Immature Gran % Nucleated RBC % PT INR APTT Puncture Site ABG pH ABG pCO2 ABG pO2 ABG HCO3 ABG O2 Saturation ABG Base Excess FiO2 Sodium 139 Potassium 3.8 Chloride 105 Carbon Dioxide 17.1 L Anion Gap 17 H BUN 17 Creatinine 1.6 H Estim Creat Clear Calc 73.4 eGFR 59 L BUN/Creatinine Ratio 11 L Glucose [address] Glu mg/dL Hemoglobin A1c Calculated Osmolality 281 Lactic Acid 3.7 H Calcium 9.0 Corrected Calcium 9.0 Phosphorus 2.2 L Magnesium 1.4 L Total Bilirubin AST ALT Alkaline Phosphatase Troponin I 0.162 H* B-Natriuretic Peptide Total Protein Albumin 4.5 Globulin Albumin/Globulin Ratio Lipase Beta-Hydroxybutyrate/Acetoacetate Procalcitonin TSH Ur Collection Type Clean Catch Urine Color Lt-Yellow Urine Clarity Clear Urine pH 6.0 Ur Specific [place] 1.021 Urine Protein 1+ A Urine Glucose (UA) 4+ A Urine Ketones 1+ A Urine Blood Trace Urine Nitrite Negative Urine Bilirubin Negative Urine Urobilinogen (Auto) Negative Ur Leukocyte Esterase Negative Urine RBC < 1 Urine WBC 3 Ur Squamous Epith Cells < 1 Urine Bacteria None Ur Culture Indicated? Not Indicated Urine Opiates Screen Positive A Urine Fentanyl Screen Negative Ur Barbiturates Screen Negative U Amphetamin/Meth Scrn Negative U Benzodiazepines Scrn Negative U Cocaine Metab Screen Negative U Marijuana (THC) Screen Positive A Ethyl Alcohol 10/22/25 10/23/25 10/23/25 23:21 03:04 07:31 WBC 11.2 H D RBC 5.25 Hgb 13.5 Hct 38.8 L MCV 74 L MCH 25.7 MCHC 34.8 RDW Std Deviation 38.6 Plt Count 301 D Neut % (Auto) 80 Lymph % (Auto) 14 [place] % (Auto) 5 Eos % (Auto) 0 Baso % (Auto) 0 Neut # (Auto) 9.0 H Lymph # (Auto) 1.6 [place] # (Auto) 0.6 Eos # (Auto) 0.0 Baso # (Auto) 0.0 Immature Gran # (Auto) 0.06 H Absolute Nucleated RBC 0.00 Immature Gran % 1 H Nucleated RBC % 0 PT 10.6 INR 1.0 APTT 29.6 Puncture Site ABG pH ABG pCO2 ABG pO2 ABG HCO3 ABG O2 Saturation ABG Base Excess FiO2 Sodium 136 138 136 Potassium 4.2 4.6 4.4 Chloride 106 106 102 Carbon Dioxide 19.5 L 22.0 20.0 Anion Gap 11 10 14 BUN 14 13 10 Creatinine 1.4 H 1.4 H 1.4 H Estim Creat Clear Calc 83.9 83.9 83.9 eGFR > 60 > 60 > 60 BUN/Creatinine Ratio 10 L 9 L 7 L Glucose 147 H [address] Glu mg/dL Hemoglobin A1c Calculated Osmolality 275 277 274 L Lactic Acid 1.7 1.1 1.4 Calcium 8.6 9.0 9.2 Corrected Calcium 8.6 9.0 9.2 Phosphorus 1.5 L 1.8 L 2.3 L Magnesium 1.3 L 1.8 1.8 Total Bilirubin 0.7 AST 41 H ALT 23 Alkaline Phosphatase 60 Troponin I 0.516 H* D 0.698 H* B-Natriuretic Peptide Total Protein 7.1 Albumin 4.1 4.1 4.5 Globulin 3.0 Albumin/Globulin Ratio 1.4 Lipase Beta-Hydroxybutyrate/Acetoacetate Procalcitonin TSH 1.32 Ur Collection Type Urine Color Urine Clarity Urine pH Ur Specific [place] Urine Protein Urine Glucose (UA) Urine Ketones Urine Blood Urine Nitrite Urine Bilirubin Urine Urobilinogen (Auto) Ur Leukocyte Esterase Urine RBC Urine WBC Ur Squamous Epith Cells Urine Bacteria Ur Culture Indicated? Urine Opiates Screen Urine Fentanyl Screen Ur Barbiturates Screen U Amphetamin/Meth Scrn U Benzodiazepines Scrn U Cocaine Metab Screen U Marijuana (THC) Screen Ethyl Alcohol 10/23/25 10/23/25 09:21 11:37 WBC RBC Hgb Hct MCV MCH MCHC RDW Std Deviation Plt Count Neut % (Auto) Lymph % (Auto) [place] % (Auto) Eos % (Auto) Baso % (Auto) Neut # (Auto) Lymph # (Auto) [place] # (Auto) Eos # (Auto) Baso # (Auto) Immature Gran # (Auto) Absolute Nucleated RBC Immature Gran % Nucleated RBC % PT INR APTT Puncture Site ABG pH ABG pCO2 ABG pO2 ABG HCO3 ABG O2 Saturation ABG Base Excess FiO2 Sodium Potassium Chloride Carbon Dioxide Anion Gap BUN Creatinine Estim Creat Clear Calc eGFR BUN/Creatinine Ratio Glucose Estimated Ave Glu mg/dL Hemoglobin A1c Calculated Osmolality Lactic Acid 1.5 Calcium Corrected Calcium Phosphorus Magnesium Total Bilirubin AST ALT Alkaline Phosphatase Troponin I 0.630 H* B-Natriuretic Peptide Total Protein Albumin Globulin Albumin/Globulin Ratio Lipase Beta-Hydroxybutyrate/Acetoacetate Procalcitonin TSH Ur Collection Type Urine Color Urine Clarity Urine pH Ur Specific [place] Urine Protein Urine Glucose (UA) Urine Ketones Urine Blood Urine Nitrite Urine Bilirubin Urine Urobilinogen (Auto) Ur Leukocyte Esterase Urine RBC Urine WBC Ur Squamous Epith Cells Urine Bacteria Ur Culture Indicated? Urine Opiates Screen Urine Fentanyl Screen Ur Barbiturates Screen U Amphetamin/Meth Scrn U Benzodiazepines Scrn U Cocaine Metab Screen U Marijuana (THC) Screen Ethyl Alcohol ABG Interpretation ABG results: 10/22/25 14:26 ABG pH 7.22 L ABG pCO2 30 L ABG pO2 114 H ABG HCO3 12 L ABG O2 Saturation 98 ABG Base Excess -14 L Quality Measures Quality Measures VTE prophylaxis Assessment & Plan Assessment Current Active Medications: Generic Name Dose Route Start Last Admin Trade Name Freq PRN Reason Stop Dose Admin Acetaminophen 650 mg 10/22/25 15:01 Acetaminophen 325 Mg Tablet PO 11/21/25 15:00 Q4HR PRN PAIN SCALE 1-3 (mild Amlodipine Besylate 10 mg 10/22/25 17:15 10/23/25 08:42 Amlodipine Besylate 5 Mg Tablet PO 11/21/25 17:14 10 mg QDAY DYLON Administration Aspirin 81 mg 10/22/25 17:15 10/23/25 08:42 Aspirin Ec 81 Mg Tabec PO 11/21/25 17:14 81 mg QDAY DYLON Administration Atorvastatin Calcium 40 mg 10/22/25 21:00 10/22/25 20:31 Atorvastatin Calcium 20 Mg Tablet PO 11/21/25 20:59 40 mg HS DYLON Administration Clopidogrel Bisulfate 75 mg 10/22/25 17:15 10/23/25 08:42 Clopidogrel Bisulfate 75 Mg Tablet PO 11/21/25 17:14 75 mg QDAY DYLON Administration Sirolimus 0.5 Mg 0 ea 10/23/25 09:00 10/23/25 08:41 Tablet PO 11/22/25 08:59 2 tablet QD DYLON Administration Dextrose 25 ml 10/23/25 04:10 Dextrose 50%-Water Inj 50 Ml Syringe IV 11/22/25 04:09 Q15MIN PRN BG 50-70 responsive npo pt Dextrose 50 ml 10/23/25 04:10 Dextrose 50%-Water Inj 50 Ml Syringe IV 11/22/25 04:09 Q15MIN PRN BG <50 OR BG <70 & pt unresponsive Escitalopram Oxalate 10 mg 10/23/25 08:00 10/23/25 08:07 Escitalopram Oxalate 10 Mg Tablet PO 11/22/25 07:59 Not Given QDAY DYLON Fenofibrate 145 mg 10/22/25 17:15 10/23/25 09:52 Fenofibrate 145 Mg Tablet (Non-Formulary) PO 11/21/25 17:14 145 mg QDAY DYLON Administration Fluconazole 200 mg 10/22/25 17:15 10/23/25 08:42 Fluconazole 100 Mg Tablet PO 10/29/25 17:14 200 mg QDAY DYLON Administration Glucagon 1 mg 10/23/25 04:10 Glucagon Inj 1 Mg Vial IM Q15MIN PRN BG <70, and no IV access Potassium Chloride 20 meq/ 1,010 mls @ 250 mls/hr 10/22/25 15:01 10/22/25 19:31 Dextrose/Lactated Ringer's IV 11/21/25 15:00 250 mls/hr .Q4H3M PRN Administration K LEVEL 3.3 TO 5.3 mM/L Potassium Chloride 40 meq/ 1,020 mls @ 250 mls/hr 10/22/25 15:01 10/23/25 05:30 Dextrose/Lactated Ringer's IV 11/21/25 15:00 0 mls/hr .Q4H5M PRN Infusion K LEVEL < 3.3mM/L Potassium Chloride 10 meq in 100 mls @ 100 mls/hr 10/22/25 15:01 Kcl Ivpb IV 11/21/25 15:00 .Q1H PRN IF POTASSIUM LESS THAN 3.3 Magnesium Sulfate 2 gm in 50 mls @ 25 mls/hr 10/22/25 15:01 10/23/25 02:48 Magnesium Sulfate Ivpb IV 11/21/25 15:00 Infused .Q2H PRN Infusion PER DKA PROTOCOL Insulin Human Regular 100 unit 100 mls @ 8.301 mls/hr 10/22/25 15:01 10/23/25 05:30 / Sodium Chloride IV 11/21/25 15:00 0 unit/kg/hr .Q12H3M PRN 0 mls/hr PER PROTOCOL Titration Protocol 0.1 UNIT/KG/HR Dextrose/Lactated Ringer's 1,000 mls @ 250 mls/hr 10/22/25 15:01 D5-Lr IV 11/21/25 15:00 .Q4H PRN PER PROTOCOL Lactated Ringer's 1,000 mls @ 250 mls/hr 10/22/25 15:01 Lactated Ringers IV 10/23/25 15:00 .Q4H PRN PER PROTOCOL Potassium Chloride 20 meq/ 1,010 mls @ 250 mls/hr 10/22/25 15:01 Lactated Ringer's IV 11/21/25 15:00 .Q4H3M PRN K LEVEL 3.3 TO 5.3mM/L Potassium Chloride 40 meq/ 1,020 mls @ 250 mls/hr 10/22/25 15:01 Lactated Ringer's IV 11/21/25 15:00 .Q4H5M PRN K LEVEL < 3.3 mM/L Potassium Chloride 10 meq in 100 mls @ 50 mls/hr 10/22/25 15:01 Kcl Ivpb IV 11/21/25 15:00 PRN PRN K LEVEL 3.3 to 5.3 & BG > 200 Potassium Phosphate 15 mmol in 250 mls @ 62.5 mls/hr 10/22/25 15:01 Pot Phos 15 Mmol In Ns 250 Ml IV 11/21/25 15:00 PRN PRN Phosphate <= 1mg/dL Sodium Phosphate 15 mmol/ 255 mls @ 62.5 mls/hr 10/22/25 15:01 Sodium Chloride IV 11/21/25 15:00 .Q4H5M PRN Phosphate <= 1mg/dL and K> than 5.3 Dextrose/Lactated Ringer's 1,000 mls @ 100 mls/hr 10/23/25 08:45 10/23/25 09:02 D5-Lr IV 10/23/25 18:44 100 mls/hr .Q10H DYLON Administration Insulin Degludec 36 unit 10/23/25 04:10 10/23/25 04:25 Insulin Degludec 5 Unit/0.05 Ml (Per 5 Units) SC 11/22/25 04:09 36 unit QDAY DYLON Administration Insulin Human Lispro 0 unit 10/23/25 07:30 10/23/25 11:34 Insulin Lispro (Admelog) 1 Unit/0.01 Ml Unit SC 11/22/25 07:29 3 unit AC DYLON Administration Protocol Ondansetron HCl 4 mg 10/22/25 22:41 10/22/25 23:32 Ondansetron Inj 2 Mg/Ml Inj 2 Ml IVP 11/21/25 22:40 4 mg Q8HR PRN Administration NAUSEA OR VOMITING Protocol Pantoprazole Sodium 40 mg 10/23/25 08:00 10/23/25 08:07 Pantoprazole Inj 40 Mg Vial IVP 11/22/25 07:59 Not Given QDAY DYLON Sodium Bicarbonate 50 ml 10/22/25 15:01 Sodium Bicarb Inj 8.4% Syr 50 Ml Syringe IV 11/21/25 15:00 Q4HR PRN For ph <= to 7.0 Tacrolimus 1.5 mg 10/22/25 17:15 10/23/25 09:52 Tacrolimus 0.5 Mg Capsule PO 11/21/25 17:14 1.5 mg QDAY DYLON Administration Tacrolimus 1 mg 10/22/25 21:00 10/22/25 20:31 Tacrolimus 1 Mg Capsule PO 11/21/25 20:59 1 mg HS DYLON Administration Plan Shubham Ruiz is a 30 y/o male with PMHx of cardiomyopathy (status post heart transplant at [facility] in 2000), insulin-dependent type 2 diabetes mellitus, hypertension, hyperlipidemia, CAD status post PCI, CKD stage III, depression who was admitted to the ICU for DKA. Anion gap closed twice, off the insulin drip at 5:30 am 10/23, trops are downtrending. Downgraded to MedSurg from ICU on 10/23. #DKA - resolved #Insulin Dependent Type II Diabetes mellitus, non-controlled #HAGMA without adequate compensation - resolved #Ketoacidosis - resolved #Lactic Acidosis - resolved #Leukocytosis - resolved #Tachypnea - improving pH 7.22, Beta-Hydroxy elevation (5.3), AG 26, Bicarbonate at 12, and Urine Ketone presence. A1c 11.1 Off Insulin Drip Protocol (0.1 units/kg), anion gap closed x 2. Leukocytosis likely related to stress, rocephin x 1 Lactic acidosis likely due to hypoperfusion (Type A) Plan: - Glucose check Q6H - Potassium replenishment as needed with goal above 3.5, renal panel every 4 hours ? Hypoglycemic protocol in place - Bcx NGTD #Acute kidney injury on CKD Stage III Baseline Rn Ante Partum ~ 1.4 Plan: - continue to monitor - monitor urine output - daily labs, monitor chemistry - renal dose med, avoid nephrotoxin - no recent contrast or offending mediations #GERD #Chest Pain #Tropinemia - Resolved #Costochondritis #Hx of CAD Physical exam reveals reproducible chest pain, hx of GERD, Had 3 stents in 2022 Plan: - continue pantoprazole 40mg QD - oxygen as needed - Continue ASA and plavix #Hx of cardiomyopathy s/p heart transplant Plan: ? Continue home Tacrolimis and Sirolimus #Hx of [place] Fever Prophylaxis 2/2 transplant history Plan: ? Continue home prophylaxis of Diflucan 200 mg #Hx of Depression - chronic medical problem Plan: ? Continue home Lexapro 10 mg qday #Hypertension #Hyperlipidemia - Chronic medical problem Plan: ? Continue home amlodipine 10 mg ? Continue dose equivalent Lipitor 40 mg of home Crestor 20 mg at bedtime ? Continue home fenofibrate 145 mg qday Health maintenance Dispo: BG monitoring DVT prophylaxis: SCDs + Heparin SC GI prophylaxis: Protonix Antibiotics: Diflucan 200mg Bowel Regimen: N/A Diet: CHO consistent low Lines: Peripheral IV Code status: Full code Case discussed with my attending Dr. Lanie Soler DO PGY 1 Attending Provider Attestation/Addendum I have seen and examined the patient. I was physically present for the pereyra portions of the services provided including history, physical exam, diagnosis, treatment plans and orders. I agree with assessment and plan of care as documented by residents. Even though this this note was carefully revised there may still be minor errors in portfolio strategist due to voice recognition software. Shlomo Dela Cruz MD
[2025-10-23] MEDS: MG HYD/AL HYD/SIME (Maalox Reg) SUSP 30 ML UDC PO ×3 (12:15→21:07)
[2025-10-23] MEDS: ACETAMINOPHEN 325 MG TABLET 650 MG PO ×2 (14:44→21:12)
[2025-10-23] MEDS: ONDANSETRON INJ 2 MG/ML INJ 2 ML 4 MG IVP (14:45)
[2025-10-23] MEDS: FAMOTIDINE 20 MG TABLET PO (15:12)
[2025-10-23 16:11] LABS: Lactate (Lactic Acid) 1.8 mMol/L (0.4-2.0)
[2025-10-23 16:35] LABS: Albumin, Serum 4.2 gm/dL (3.5-5.0); Anion Gap 17 (7-16); BUN/Creatinine Ratio 7 Ratio (12-20); Blood Urea Nitrogen 11 mg/dL (9-23); Calcium 8.9 mg/dL (8.3-10.6); Calcium (Corrected) 8.9 mg/dL (8.5-10.1); Carbon Dioxide 16.3 mMol/L (20.0-31.0); Chloride 98 mMol/L (98-107); Creatinine (Component) 1.6 mg/dL (0.6-1.3); Estimated Creatinine Clearance 73.4 mL/min (>60); Glucose 241 mg/dL (74-106); Magnesium 1.9 mg/dL (1.6-2.6); Osmolality,Calculated 270 (275-295); Phosphorous 3.3 mg/dL (2.4-5.1); Potassium 4.4 mMol/L (3.4-5.1); Sodium 131 mMol/L (136-145); eGFR 59 See Note
--- NOTE | 2025-10-23 18:50 | EKG_ITS ---
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
[2025-10-23] MEDS: RINGERS LACTATED 1000 ML 1,000 ML 999 ML IV (19:57)
[2025-10-23] MEDS: ATORVASTATIN CALCIUM 20 MG TABLET 40 MG PO (21:08)
[2025-10-23] MEDS: HEPARIN SOD INJ 5000 UNIT/ML VIAL SC (21:08)
[2025-10-23] MEDS: TACROLIMUS 1 MG CAPSULE PO (21:11)
[2025-10-23] MEDS: MELATONIN 3 MG TABLET 6 MG PO (21:11)
[2025-10-23 21:28] LABS: Troponin I 0.384 ng/mL (0.0-0.045)
[2025-10-23 21:55] LABS: Albumin, Serum 4.2 gm/dL (3.5-5.0); BUN/Creatinine Ratio 7 Ratio (12-20); Blood Urea Nitrogen 11 mg/dL (9-23); Calcium 8.9 mg/dL (8.3-10.6); Calcium (Corrected) 8.9 mg/dL (8.5-10.1); Chloride 97 mMol/L (98-107); Creatinine (Component) 1.5 mg/dL (0.6-1.3); Estimated Creatinine Clearance 78.3 mL/min (>60); Glucose 217 mg/dL (74-106); Osmolality,Calculated 263 (275-295); Phosphorous 3.3 mg/dL (2.4-5.1); Potassium 4.9 mMol/L (3.4-5.1); Sodium 128 mMol/L (136-145); eGFR > 60 See Note
[2025-10-23 22:01] LABS: Anion Gap 15 (7-16); Carbon Dioxide 15.7 mMol/L (20.0-31.0)
[2025-10-23] MEDS: SODIUM CHLORIDE 0.9% 1000 ML 2,000 ML 999 ML IV (23:19)
[2025-10-23] MEDS: INSULIN DEGLUDEC 5 UNIT/0.05 ML (PER 5 UNITS) 10 UNIT SC (23:25)
[2025-10-24] VITALS (11 sets, daily range): BP systolic 140–161; BP diastolic 85–101; PULSE 90–105; RESP 18–33; TEMP 35.9–36.6; O2SAT 91–99; BMI 28.0
[2025-10-24] MEDS: CALCIUM CARBONATE 600 MG TABLET PO (02:14)
[2025-10-24 02:48] LABS: Albumin, Serum 4.2 gm/dL (3.5-5.0); Anion Gap 13 (7-16); BUN/Creatinine Ratio 9 Ratio (12-20); Blood Urea Nitrogen 12 mg/dL (9-23); Calcium 8.6 mg/dL (8.3-10.6); Calcium (Corrected) 8.6 mg/dL (8.5-10.1); Carbon Dioxide 19.9 mMol/L (20.0-31.0); Chloride 100 mMol/L (98-107); Creatinine (Component) 1.4 mg/dL (0.6-1.3); Estimated Creatinine Clearance 83.9 mL/min (>60); Glucose 142 mg/dL (74-106); Osmolality,Calculated 268 (275-295); Phosphorous 3.5 mg/dL (2.4-5.1); Potassium 4.2 mMol/L (3.4-5.1); Sodium 133 mMol/L (136-145); eGFR > 60 See Note
[2025-10-24 06:16] LABS: Basophils # (Auto) 0.0 Thou/mm3 (0.0-0.2); Basophils % (Auto) 0 % (0-2.5); Eosinophils # (Auto) 0.0 Thou/mm3 (0.0-0.5); Eosinophils % (Auto) 0 % (0-10); Hematocrit 40.0 % (41.0-53.0); Hemoglobin 13.8 g/dL (13.5-16.0); Immature Granulocytes Auto 0.05 Thou/mm3 (0.00-0.00); Lymphocytes # (Auto) 1.7 Thou/mm3 (1.0-4.8); Lymphocytes % (Auto) 15 % (10-50); Mean Corpuscular HGB Conc 34.5 g/dl (31.0-37.0); Mean Corpuscular Hemoglobin 25.7 pg (25.0-35.0); Mean Corpuscular Volume 75 fL (80-100); Monocytes # (Auto) 0.7 Thou/mm3 (0.0-0.8); Monocytes % (Auto) 6 % (0-12); Neutrophils # (Auto) 9.3 Thou/mm3 (1.8-7.7); Neutrophils % (Auto) 79 % (37-80); Nucleated Red Blood Cell # 0.00 Thou/mm3 (0.00-0.00); Nucleated Red Blood Cell % 0 /100 WBC (0); Platelet Count 253 Thou/mm3 (140-440); RDW Standard Deviation 38.7 fL (35.1-43.9); Red Blood Count 5.37 Miln/mm3 (4.50-5.90); White Blood Count 11.7 Thou/mm3 (3.8-10.6)
[2025-10-24 07:02] LABS: Alanine Aminotransferase 36 U/L (10-49); Albumin, Serum 4.1 gm/dL (3.5-5.0); Albumin/Globulin Ratio 1.4 (1.2-2.2); Alkaline Phosphatase 65 U/L (46-116); Anion Gap 15 (7-16); Aspartate Amino Transferase 67 U/L (0-34); BUN/Creatinine Ratio 8 Ratio (12-20); Bilirubin,Total 0.7 mg/dL (0.3-1.2); Blood Urea Nitrogen 11 mg/dL (9-23); Calcium 8.9 mg/dL (8.3-10.6); Calcium (Corrected) 8.9 mg/dL (8.5-10.1); Carbon Dioxide 18.1 mMol/L (20.0-31.0); Chloride 98 mMol/L (98-107); Creatinine (Component) 1.4 mg/dL (0.6-1.3); Estimated Creatinine Clearance 91.0 mL/min (>60); Globulin 2.9 gm/dL (2.3-3.5); Glucose 133 mg/dL (74-106); Osmolality,Calculated 264 (275-295); Potassium 4.4 mMol/L (3.4-5.1); Sodium 131 mMol/L (136-145); Total Protein 7.0 gm/dL (5.7-8.2); eGFR > 60 See Note
[2025-10-24 07:04] LABS: Troponin I 0.297 ng/mL (0.0-0.045)
[2025-10-24] MEDS: RINGERS LACTATED 1000 ML 1,000 ML 999 ML IV (09:12)
[2025-10-24] MEDS: INSULIN LISPRO (AdmeLOG) 1 UNIT/0.01 ML UNIT SC (09:15)
[2025-10-24] MEDS: TACROLIMUS 0.5 MG CAPSULE 1.5 MG PO (09:19)
[2025-10-24] MEDS: ASPIRIN EC 81 MG TABEC PO (09:20)
[2025-10-24] MEDS: CLOPIDOGREL BISULFATE 75 MG TABLET PO (09:20)
[2025-10-24] MEDS: ESCITALOPRAM OXALATE 10 MG TABLET PO (09:20)
[2025-10-24] MEDS: FLUCONAZOLE 100 MG TABLET 200 MG PO (09:20)
[2025-10-24] MEDS: HEPARIN SOD INJ 5000 UNIT/ML VIAL SC ×2 (09:21→20:57)
[2025-10-24] MEDS: FENOFIBRATE 145 MG TABLET (NON-FORMULARY) PO (09:23)
[2025-10-24] MEDS: SIROLIMUS 0.5 MG TABLET PO (09:23)
--- NOTE | 2025-10-24 09:27 | ESPR_ITS ---
<Statement entered by Jean Salmeron MD - 11/03/25 08:24> I reviewed above note and agree with findings and plans. I have also personally examined the patient with medicine team and went over assessment and plan with medical team including underwriting intern and resident physician. <Statement entered by Bentley Jimenez MD - 10/24/25 18:38> Patient was examined and case was reviewed with team including attending physician. Note reviewed, I agree with most of its contents and agree with the patient's care as documented by Dr. Karlene Jimenez MD PGY-2 Documentation for date of: 10/24/25 Subjective Subjective Interval history: Shubham Ruiz is a 30 y/o male with PMHx of cardiomyopathy (status post heart transplant at [facility] in 2000), insulin-dependent type 2 diabetes mellitus, hypertension, hyperlipidemia, CAD status post PCI, CKD stage III, depression who comes in for an evaluation after an acute onsets of nausea, dry heaving and generalized weakness onset morning of 10/22/25. He does not have any headache, however endorses some chest pain that is generalized, however no shortness of breath at this time. He says that he takes 45 units of Lantus at home in addition to sliding scale. He does have a aviation engineer Dr. Londono in [place]. Patient is compliant with his medicines as prescribed, however he recently had his metformin discontinued by his physician. He says his infection control coordinator ordered at [facility] and that he has an appointment on the 15 of this month. In the ED, he was found to have a white count of 18, potassium 3.0, glucose 317, anion gap 27, and lactate 7.4. beta hydroxybutyrate 5.3. Patient was given 5 units of insulin, started on 40 mill equivalents of IV potassium, morphine 4 mg x 1, and given 2 L of sodium chloride bolus, sodium phosphate x 1, Rocephin x 1. He was admitted initially to the ICU on 10/22/25 for medical management of DKA. He was downgraded to MedSurg on 10/23/25. 10/23/2025 (ICU): Over night gap closed twice, over the 4 hours gap was closed with 12 units of insulin. Patient remains hypertensive (148/83), tachycardic (HR 102), and tachypnic (RR 35). Trops have downtrended. Patient currently on 5 LR at 100 cc/h. He is not eating much of his meals. His abdominal pain is reproducible to palpation and his chest discomfort is reproducible on mid- sternal palpation. Patient safe to be downgraded to floors. 10/23/25 PM: Downgraded from ICU. VSS. BG 245. 10/24/25: Received 1L LR overnight. Bicarb 18.1. Anion gap 15. Blood sugar stable overnight. He is currently on 40U long-acting insulin given poor oral intake. On exam, patient denies any abdomen pain. Plan to increase basal insulin from 40 to 45U (home dose) tomorrow once patient regains appetite. Will continue to monitor closely, likely discharge tmr if stable. Of note, patient has an appointment today with [facility] heart transplant team, advised to reschedule appointment to later this week. Exam Vital Signs Temp Pulse Resp BP Pulse Ox O2 Del Method O2 Flow Rate 97.9 F 105 H 24 H 142/88 H 99 Nasal Cannula 1 10/24/25 08:02 10/24/25 08:53 10/24/25 08:53 10/24/25 08:02 10/24/25 08:53 10/24/25 08:02 10/24/25 08:53 Narrative Exam General: Awake and in no acute distress. A/O x 3 HEENT: Normocephalic, atraumatic, mucous membranes moist. Heart: Regular rate and rhythm Lungs: Clear to auscultation with no wheezing or crackles. Abdomen: Soft, nondistended, nontender. No guarding or rebound tenderness. Neurologic: Alert and oriented x3, no gross neurological deficit, and patient able to move all 4 extremities. Extremities: No pitting edema to lower extremities. Skin: No rash. No ecchymoses. Objective Labs 10/24/25 05:50 10/24/25 05:50 Labs: Laboratory Results - last 24 hr 10/23/25 10/23/25 10/23/25 09:21 11:37 15:44 WBC RBC Hgb Hct MCV MCH MCHC RDW Std Deviation Plt Count Neut % (Auto) Lymph % (Auto) [place] % (Auto) Eos % (Auto) Baso % (Auto) Neut # (Auto) Lymph # (Auto) [place] # (Auto) Eos # (Auto) Baso # (Auto) Immature Gran # (Auto) Absolute Nucleated RBC Immature Gran % Nucleated RBC % Sodium 131 L Potassium 4.4 Chloride 98 Carbon Dioxide 16.3 L Anion Gap 17 H BUN 11 Creatinine 1.6 H Estim Creat Clear Calc 73.4 eGFR 59 L BUN/Creatinine Ratio 7 L Glucose 241 H D Calculated Osmolality 270 L Lactic Acid 1.5 1.8 Calcium 8.9 Corrected Calcium 8.9 Phosphorus 3.3 Magnesium 1.9 Total Bilirubin AST ALT Alkaline Phosphatase Troponin I 0.630 H* Total Protein Albumin 4.2 Globulin Albumin/Globulin Ratio 10/23/25 10/23/25 10/23/25 19:50 19:50 19:50 WBC RBC Hgb Hct MCV MCH MCHC RDW Std Deviation Plt Count Neut % (Auto) Lymph % (Auto) [place] % (Auto) Eos % (Auto) Baso % (Auto) Neut # (Auto) Lymph # (Auto) [place] # (Auto) Eos # (Auto) Baso # (Auto) Immature Gran # (Auto) Absolute Nucleated RBC Immature Gran % Nucleated RBC % Sodium Cancelled 128 L Potassium Cancelled 4.9 D Chloride Cancelled Carbon Dioxide Anion Gap BUN Creatinine Estim Creat Clear Calc eGFR BUN/Creatinine Ratio Glucose Calculated Osmolality Lactic Acid Calcium Corrected Calcium Phosphorus Magnesium Total Bilirubin AST ALT Alkaline Phosphatase Troponin I Total Protein Albumin Globulin Albumin/Globulin Ratio 10/23/25 10/23/25 10/23/25 19:50 19:50 19:50 WBC RBC Hgb Hct MCV MCH MCHC RDW Std Deviation Plt Count Neut % (Auto) Lymph % (Auto) [place] % (Auto) Eos % (Auto) Baso % (Auto) Neut # (Auto) Lymph # (Auto) [place] # (Auto) Eos # (Auto) Baso # (Auto) Immature Gran # (Auto) Absolute Nucleated RBC Immature Gran % Nucleated RBC % Sodium Potassium Chloride 97 L Carbon Dioxide Cancelled 15.7 L Anion Gap Cancelled 15 BUN Cancelled Creatinine Estim Creat Clear Calc eGFR BUN/Creatinine Ratio Glucose Calculated Osmolality Lactic Acid Calcium Corrected Calcium Phosphorus Magnesium Total Bilirubin AST ALT Alkaline Phosphatase Troponin I Total Protein Albumin Globulin Albumin/Globulin Ratio 10/23/25 10/23/25 10/23/25 19:50 19:50 19:50 WBC RBC Hgb Hct MCV MCH MCHC RDW Std Deviation Plt Count Neut % (Auto) Lymph % (Auto) [place] % (Auto) Eos % (Auto) Baso % (Auto) Neut # (Auto) Lymph # (Auto) [place] # (Auto) Eos # (Auto) Baso # (Auto) Immature Gran # (Auto) Absolute Nucleated RBC Immature Gran % Nucleated RBC % Sodium Potassium Chloride Carbon Dioxide Anion Gap BUN 11 Creatinine Cancelled 1.5 H Estim Creat Clear Calc Cancelled 78.3 eGFR Cancelled BUN/Creatinine Ratio Glucose Calculated Osmolality Lactic Acid Calcium Corrected Calcium Phosphorus Magnesium Total Bilirubin AST ALT Alkaline Phosphatase Troponin I Total Protein Albumin Globulin Albumin/Globulin Ratio 10/23/25 10/23/25 10/23/25 19:50 19:50 19:50 WBC RBC Hgb Hct MCV MCH MCHC RDW Std Deviation Plt Count Neut % (Auto) Lymph % (Auto) [place] % (Auto) Eos % (Auto) Baso % (Auto) Neut # (Auto) Lymph # (Auto) [place] # (Auto) Eos # (Auto) Baso # (Auto) Immature Gran # (Auto) Absolute Nucleated RBC Immature Gran % Nucleated RBC % Sodium Potassium Chloride Carbon Dioxide Anion Gap BUN Creatinine Estim Creat Clear Calc eGFR > 60 BUN/Creatinine Ratio Cancelled 7 L Glucose Cancelled 217 H Calculated Osmolality Cancelled Lactic Acid Calcium Corrected Calcium Phosphorus Magnesium Total Bilirubin AST ALT Alkaline Phosphatase Troponin I Total Protein Albumin Globulin Albumin/Globulin Ratio 10/23/25 10/23/25 10/23/25 19:50 19:50 19:50 WBC RBC Hgb Hct MCV MCH MCHC RDW Std Deviation Plt Count Neut % (Auto) Lymph % (Auto) [place] % (Auto) Eos % (Auto) Baso % (Auto) Neut # (Auto) Lymph # (Auto) [place] # (Auto) Eos # (Auto) Baso # (Auto) Immature Gran # (Auto) Absolute Nucleated RBC Immature Gran % Nucleated RBC % Sodium Potassium Chloride Carbon Dioxide Anion Gap BUN Creatinine Estim Creat Clear Calc eGFR BUN/Creatinine Ratio Glucose Calculated Osmolality 263 L Lactic Acid Calcium Cancelled 8.9 Corrected Calcium Cancelled 8.9 Phosphorus Cancelled Magnesium Total Bilirubin AST ALT Alkaline Phosphatase Troponin I Total Protein Albumin Globulin Albumin/Globulin Ratio 10/23/25 10/23/25 10/24/25 19:50 19:50 02:18 WBC RBC Hgb Hct MCV MCH MCHC RDW Std Deviation Plt Count Neut % (Auto) Lymph % (Auto) [place] % (Auto) Eos % (Auto) Baso % (Auto) Neut # (Auto) Lymph # (Auto) [place] # (Auto) Eos # (Auto) Baso # (Auto) Immature Gran # (Auto) Absolute Nucleated RBC Immature Gran % Nucleated RBC % Sodium 133 L Potassium 4.2 D Chloride 100 Carbon Dioxide 19.9 L Anion Gap 13 BUN 12 Creatinine 1.4 H Estim Creat Clear Calc 83.9 eGFR > 60 BUN/Creatinine Ratio 9 L Glucose 142 H D Calculated Osmolality 268 L Lactic Acid Calcium 8.6 Corrected Calcium 8.6 Phosphorus 3.3 3.5 Magnesium Total Bilirubin AST ALT Alkaline Phosphatase Troponin I 0.384 H* D Total Protein Albumin Cancelled 4.2 4.2 Globulin Albumin/Globulin Ratio 10/24/25 05:50 WBC 11.7 H RBC 5.37 Hgb 13.8 Hct 40.0 L MCV 75 L MCH 25.7 MCHC 34.5 RDW Std Deviation 38.7 Plt Count 253 D Neut % (Auto) 79 Lymph % (Auto) 15 [place] % (Auto) 6 Eos % (Auto) 0 Baso % (Auto) 0 Neut # (Auto) 9.3 H Lymph # (Auto) 1.7 [place] # (Auto) 0.7 Eos # (Auto) 0.0 Baso # (Auto) 0.0 Immature Gran # (Auto) 0.05 H Absolute Nucleated RBC 0.00 Immature Gran % 0 Nucleated RBC % 0 Sodium 131 L Potassium 4.4 Chloride 98 Carbon Dioxide 18.1 L Anion Gap 15 BUN 11 Creatinine 1.4 H Estim Creat Clear Calc 91.0 eGFR > 60 BUN/Creatinine Ratio 8 L Glucose 133 H Calculated Osmolality 264 L Lactic Acid Calcium 8.9 Corrected Calcium 8.9 Phosphorus Magnesium Total Bilirubin 0.7 AST 67 H ALT 36 Alkaline Phosphatase 65 Troponin I 0.297 H* Total Protein 7.0 Albumin 4.1 Globulin 2.9 Albumin/Globulin Ratio 1.4 ABG Interpretation ABG results: 10/22/25 14:26 ABG pH 7.22 L ABG pCO2 30 L ABG pO2 114 H ABG HCO3 12 L ABG O2 Saturation 98 ABG Base Excess -14 L Quality Measures Quality Measures VTE prophylaxis Assessment & Plan Assessment Current Active Medications: Generic Name Dose Route Start Last Admin Trade Name Freq PRN Reason Stop Dose Admin Acetaminophen 650 mg 10/22/25 15:01 10/23/25 21:12 Acetaminophen 325 Mg Tablet PO 11/21/25 15:00 650 mg Q4HR PRN Administration PAIN SCALE 1-3 (mild Amlodipine Besylate 10 mg 10/22/25 17:15 10/23/25 08:42 Amlodipine Besylate 5 Mg Tablet PO 11/21/25 17:14 10 mg QDAY DYLON Administration Aspirin 81 mg 10/22/25 17:15 10/23/25 08:42 Aspirin Ec 81 Mg Tabec PO 11/21/25 17:14 81 mg QDAY DYLON Administration Atorvastatin Calcium 40 mg 10/22/25 21:00 10/23/25 21:08 Atorvastatin Calcium 20 Mg Tablet PO 11/21/25 20:59 40 mg HS DYLON Administration Clopidogrel Bisulfate 75 mg 10/22/25 17:15 10/23/25 08:42 Clopidogrel Bisulfate 75 Mg Tablet PO 11/21/25 17:14 75 mg QDAY DYLON Administration Sirolimus 0.5 Mg 0 ea 10/23/25 09:00 10/23/25 08:41 Tablet PO 11/22/25 08:59 2 tablet QD DYLON Administration Dextrose 25 ml 10/23/25 04:10 Dextrose 50%-Water Inj 50 Ml Syringe IV 11/22/25 04:09 Q15MIN PRN BG 50-70 responsive npo pt Dextrose 50 ml 10/23/25 04:10 Dextrose 50%-Water Inj 50 Ml Syringe IV 11/22/25 04:09 Q15MIN PRN BG <50 OR BG <70 & pt unresponsive Docusate Sodium 100 mg 10/24/25 09:21 Docusate Sod 100 Mg Capsule PO 11/23/25 09:20 QDAY PRN CONSTIPATION Protocol Escitalopram Oxalate 10 mg 10/23/25 08:00 10/23/25 08:07 Escitalopram Oxalate 10 Mg Tablet PO 11/22/25 07:59 Not Given QDAY DYLON Fenofibrate 145 mg 10/22/25 17:15 10/23/25 09:52 Fenofibrate 145 Mg Tablet (Non-Formulary) PO 11/21/25 17:14 145 mg QDAY DYLON Administration Fluconazole 200 mg 10/22/25 17:15 10/23/25 08:42 Fluconazole 100 Mg Tablet PO 10/29/25 17:14 200 mg QDAY DYLON Administration Glucagon 1 mg 10/23/25 04:10 Glucagon Inj 1 Mg Vial IM Q15MIN PRN BG <70, and no IV access Heparin Sodium (Porcine) 5,000 unit 10/23/25 21:00 10/23/25 21:08 Heparin Sod Inj 5000 Unit/Ml Vial SC 11/06/25 20:59 5,000 unit Q12HR DYLON Administration Insulin Degludec 45 unit 10/24/25 09:00 Insulin Degludec 5 Unit/0.05 Ml (Per 5 Units) SC 11/23/25 08:59 QDAY DYLON Insulin Human Lispro 0 unit 10/23/25 21:00 10/23/25 21:11 Insulin Lispro (Admelog) 1 Unit/0.01 Ml Unit SC 11/22/25 20:59 2 unit ACHS DYLON Administration Protocol Melatonin 6 mg 10/23/25 21:00 10/23/25 21:11 Melatonin 3 Mg Tablet PO 11/22/25 20:59 6 mg HS DYLON Administration Ondansetron HCl 4 mg 10/22/25 22:41 10/23/25 14:45 Ondansetron Inj 2 Mg/Ml Inj 2 Ml IVP 11/21/25 22:40 4 mg Q8HR PRN Administration NAUSEA OR VOMITING Protocol Pantoprazole Sodium 40 mg 10/23/25 08:00 10/23/25 08:07 Pantoprazole Inj 40 Mg Vial IVP 11/22/25 07:59 Not Given QDAY DYLON Tacrolimus 1.5 mg 10/22/25 17:15 10/23/25 09:52 Tacrolimus 0.5 Mg Capsule PO 11/21/25 17:14 1.5 mg QDAY DYLON Administration Tacrolimus 1 mg 10/22/25 21:00 10/23/25 21:11 Tacrolimus 1 Mg Capsule PO 11/21/25 20:59 1 mg HS DYLON Administration Plan Shubham Ruiz is a 30 y/o male with PMHx of cardiomyopathy (status post heart transplant at [facility] in 2000), insulin-dependent type 2 diabetes mellitus, hypertension, hyperlipidemia, CAD status post PCI, CKD stage III, depression who was admitted to the ICU for DKA. Anion gap closed twice, off the insulin drip at 5:30 am 10/23, trops are downtrending. Downgraded to MedSurg from ICU on 10/23. #DKA - resolved #Insulin Dependent Type II Diabetes mellitus, non-controlled #HAGMA without adequate compensation - resolved #Ketoacidosis - resolved #Lactic Acidosis - resolved #Leukocytosis - resolved #Tachypnea - improving pH 7.22, Beta-Hydroxy elevation (5.3), AG 26, Bicarbonate at 12, and Urine Ketone presence. A1c 11.1 Off Insulin Drip Protocol (0.1 units/kg), anion gap closed x 2. Leukocytosis likely related to stress, rocephin x 1 Lactic acidosis likely due to hypoperfusion (Type A) Plan: - Glucose check ACHS - Potassium replenishment as needed with goal above 3.5, renal panel every 4 hours ? Hypoglycemic protocol in place - Bcx NGTD - Keep Insulin degludec 40U (patient takes 45U at home), plan to increase to 45U tmr once patient regains appetite. - ISS - 1L LR Bolus x1 (10/24/25) #Acute kidney injury on CKD Stage III - at baseline Baseline Canoe Inspector ~ 1.4 Plan: - continue to monitor - monitor urine output - daily labs, monitor chemistry - renal dose med, avoid nephrotoxin - no recent contrast or offending mediations #GERD #Chest Pain #Tropinemia - Resolved #Costochondritis #Hx of CAD Physical exam reveals reproducible chest pain, hx of GERD, Had 3 stents in 2022 Plan: - continue pantoprazole 40mg QD - oxygen as needed - Continue ASA 81mg and plavix 75mg QD #Hx of cardiomyopathy s/p heart transplant Plan: ? Continue home Tacrolimis and Sirolimus #Hx of [place] Fever Prophylaxis 2/2 transplant history Plan: ? Continue home prophylaxis of Diflucan 200 mg #Hx of Depression - chronic medical problem Plan: ? Continue home Lexapro 10 mg qday #Hypertension #Hyperlipidemia - Chronic medical problem Plan: ? Continue home amlodipine 10 mg ? Continue dose equivalent Lipitor 40 mg of home Crestor 20 mg at bedtime ? Continue home fenofibrate 145 mg qday Health maintenance Dispo: BG monitoring DVT prophylaxis: SCDs + Heparin SC GI prophylaxis: Protonix Antibiotics: Diflucan 200mg Bowel Regimen: Docusate Diet: CHO consistent low Lines: Peripheral IV Code status: Full code Case discussed with my senior resident Dr. Rodríguez Case discussed with my attending Dr. Faviola Hopkins Karlene, DO PGY 1 Attending Provider Attestation/Addendum I have seen and examined the patient. I was physically present for the pereyra portions of the services provided including history, physical exam, diagnosis, treatment plans and orders. I agree with assessment and plan of care as documented by residents. Even though this this note was carefully revised there may still be minor errors in marketing content specialist due to voice recognition software. Shlomo Dela Cruz MD
[2025-10-24] MEDS: INSULIN DEGLUDEC 5 UNIT/0.05 ML (PER 5 UNITS) 40 UNIT SC (09:32)
--- NOTE | 2025-10-24 09:35 | CHAP ---
Patient expressed gratitude for visit and prayer.
[2025-10-24] MEDS: DOCUSATE SOD 100 MG CAPSULE PO (09:58)
--- NOTE | 2025-10-24 11:18 | PC.SS ---
BOWLING BALL GRADER conducted bedside contact with the patient conduct initial assessment and to discuss discharge planning.? Patient confirmed demographic information.? Patient resides at home with family.? Patient does not utilize any form of DME to assist with ambulation.? Patient does not utilize home oxygen.? Patient describes the ability to complete ADL?s independently.? Patient identified mother, Komal Ruiz ; as medical surrogate decision maker.? Patient?s PCP is Teresa Luevano.? Patient does not participate with dialysis.? Patient possesses history of diabetes, insulin dependent.? Plan is for the patient to return home at the time of discharge.? Family will provide transportation on behalf of the patient.? No further discharge needs identified by the patient.? No further intervention required at this time, manager social services will be available to address any further concerns.? Next of Kin: Komal Ruiz D/C Plan: Home
--- NOTE | 2025-10-24 11:20 | PC.SS ---
IT SOFTWARE ENGINEER conducted bedside contact with the patient conduct initial assessment and to discuss discharge planning.? Patient confirmed demographic information.? Patient resides at home with family.? Patient does not utilize any form of DME to assist with ambulation.? Patient possesses home oxygen on as needed basis.? Patient describes the ability to complete ADL?s independently.? Patient identified mother, Komal Ruiz ; as medical surrogate decision maker.? Patient?s PCP is Teresa Luevano.? Patient does not participate with dialysis.? Patient possesses history of diabetes, insulin dependent.? Plan is for the patient to return home at the time of discharge.? Family will provide transportation on behalf of the patient.? No further discharge needs identified by the patient.? No further intervention required at this time, addiction social worker will be available to address any further concerns.? Next of Kin: Komal Ruiz D/C Plan: Home
--- NOTE | 2025-10-24 11:21 | XR_ITS ---
Examination: Abdomen AP single view Technique: AP portable supine abdomen, single view Exam date and time: October 24, 2025, 1128 hours INDICATIONS: Abdominal pain beginning today. FINDINGS: Nonobstructive bowel gas pattern. No free air No renal or ureteral calculi IMPRESSION: Nonobstructive bowel gas pattern
[2025-10-24] MEDS: SIMETHICONE 80 MG CHEW PO (11:37)
[2025-10-24 12:59] LABS: Iron 23 mcg/dL (65-175); Percent Iron Saturation 8 % (20-55); Total Iron Binding Capacity 283 mcg/dL (250-425); Unsaturated Iron Binding 260 (225-295)
[2025-10-24] MEDS: HYOSCYAMINE SULF 0.125 MG TAB.SUBL 0.25 MG PO (14:58)
--- NOTE | 2025-10-24 16:00 | ESDS_ITS ---
<Statement entered by Jean Salmeron MD - 11/03/25 08:26> I reviewed above note and agree with findings and plans. I have also personally examined the patient with medicine team and went over assessment and plan with medical team including cad intern and resident physician. <Statement entered by Bentley Jimenez MD - 10/24/25 17:14> Patient was examined and case was reviewed with team including attending physician. Note reviewed, I agree with most of its contents and agree with the patient's care as documented by Dr. Karlene Jimenez MD PGY-2 Planned Discharge Date 10/24/25 DS: Providers Provider Date of admission: 10/22/25 15:01 Primary care physician: NEREYDA Smith Admitting Provider: Swapna Lanier MD Attending Provider on Admission: Shlomo Dela Cruz MD Consults: 10/22/25 15:03 Referral Registered Dietitian Routine Comment: 10/22/25 22:51 Referral Manny Routine Comment: Health Equity Referral - Nutrition Routine Comment: Positive screening for nutrition needs. Health Equity Referral - Transportation Routine Comment: Positive screening for transportation needs. 10/24/25 15:49 Referral - Barrel Washer Machine Stat Service Needed for Transfer: Heart transplant Addl Comments:: Patient underwent heart transplant at [facility], was treated for DKA, accepted for transfer to [facility]. Please call [phone]. Attending Provider on DC: Jean Salmeron MD Discharging Provider: Sandeep Soler DO Anticipated date of discharge: 10/24/25 DS: Diagnosis Problem List Completed Was Problem List Reviewed/Reconciled?: Yes Hospital Course Hospital Course Hospital course: Shubham Ruiz is a 30 y/o male with PMHx of cardiomyopathy (status post heart transplant at [facility] in 2000), insulin-dependent type 2 diabetes mellitus, hypertension, hyperlipidemia, CAD status post PCI, CKD stage III, depression who comes in for an evaluation after an acute onsets of nausea, dry heaving and generalized weakness onset morning of 10/22/25. He endorsed some chest pain that was generalized, however no shortness of breath at that time. He takes 45 units of Lantus at home in addition to sliding scale. He does have a kitchen steward Dr. Londono in [place], [place]. Patient is compliant with his medicines as prescribed, however he recently had his metformin discontinued by his physician. He has an appointment with his voice network engineer at [facility] on the of this month. In the ED, he was found to have a white count of 18, potassium 3.0, glucose 317, anion gap 27, and lactate 7.4. beta hydroxybutyrate 5.3. Patient was given 5 units of insulin, started on 40 mill equivalents of IV potassium, morphine 4 mg x 1, and given 2 L of sodium chloride bolus, sodium phosphate x 1, Rocephin x 1. He was admitted initially to the ICU on 10/22/25 for medical management of DKA. He was downgraded to MedSurg on 10/23/25 after anion gap closed x2. Patient remained hypertensive (148/83), tachycardic (HR 102), and tachypnic (RR 35) at downgrade. Trops had downtrended. He is not eating much of his meals. His abdominal pain is reproducible to palpation and his chest discomfort is reproducible on mid- sternal palpation. On day 1 of admission, anion continued to be closed at 15. Bicarb 18.1. Blood sugar stable. He was resumed on 40U Degludec Insulin along wi th his home medications. At this time, patient is medically and physically stable for transfer to [facility] for his scheduled appointment with cardiology. All questions and concerns addressed, plan of care discussed with patient. Diagnosis: #DKA - resolved #Insulin Dependent Type II Diabetes mellitus, non-controlled #HAGMA without adequate compensation - resolved #Ketoacidosis - resolved #Lactic Acidosis - resolved #Leukocytosis - resolved #Tachypnea - improving #Acute kidney injury on CKD Stage III - at baseline #GERD #Chest Pain #Tropinemia - Resolved #Costochondritis #Hx of CAD #Hx of cardiomyopathy s/p heart transplant #Hx of Valley Fever Prophylaxis #Hx of Depression #Hypertension #Hyperlipidemia Discharge Plan: Transfer to [facility] Cardiology. Case discussed with my senior resident Dr. Rodríguez Case discussed with my attending Dr. Faviola Soler, PGY 1 Status at Discharge Overall status at discharge: patient is progressing back to baseline Time Spent with Patient Time attestation: Total time spent providing and/or coordinating discharge services: Time spent: Greater than 30 minutes Exam Vital Signs Temp Pulse Resp BP Pulse Ox O2 Del Method O2 Flow Rate 97.9 F 97 18 156/98 H 97 Nasal Cannula 1 10/24/25 12:00 10/24/25 12:00 10/24/25 12:00 10/24/25 12:00 10/24/25 12:00 10/24/25 12:00 10/24/25 12:00 Narrative Exam General: Awake and in no acute distress. A/O x 3 HEENT: Normocephalic, atraumatic, mucous membranes moist. Heart: Regular rate and rhythm Lungs: Clear to auscultation with no wheezing or crackles. Abdomen: Soft, nondistended, nontender. No guarding or rebound tenderness. Neurologic: Alert and oriented x3, no gross neurological deficit, and patient able to move all 4 extremities. Extremities: No pitting edema to lower extremities. Skin: No rash. No ecchymoses. Discharge Plan Plan Patient Disposition: [facility] Facility Pt Being Transferred to: [facility] Service Needed for Transfer: Cardiology Prescriptions/Referrals Prescriptions/Med Rec: No Action aspirin 81 mg tablet,delayed release (DR/EC) 81 mg PO QDAY Qty: 90 0RF All Day Allergy (cetirizine) 10 mg capsule 10 mg PO QDAY Qty: 90 0RF fenofibrate nanocrystallized 145 mg tablet 145 mg PO DAILY Patient Comments: TAKE 1 TABLET BY MOUTH DAILY pantoprazole 40 mg tablet,delayed release (DR/EC) 40 mg PO QDAY clopidogrel 75 mg tablet 75 mg PO QDAY tacrolimus 0.5 mg capsule 2.5 mg PO QDAY Rx Instructions: 3CAP QAM 2CAP QHS sirolimus 0.5 mg tablet 1 mg PO QDAY (DME) FreeStyle Ni 2 Sensor Kit See Rx Instructions .Route Qty: 1 0RF Rx Instructions: As directed--CHANGE EVERY 14 DAYS (CHANGED 1 WEEK AGO) (DME) FreeStyle Ni 2 [place] Misc See Rx Instructions .Route Qty: 1 0RF Rx Instructions: As directed amlodipine 5 mg tablet 5 mg PO QDAY escitalopram oxalate 10 mg tablet 10 mg PO QDAY rosuvastatin 20 mg tablet 20 mg PO QHS enalapril maleate 10 mg tablet 10 mg PO BID tramadol 50 mg tablet 50 mg PO Q12H PRN (Reason: pain) Qty: 14 0RF insulin regular human 100 unit/mL (3 mL) insulin pen 1 sliding scale dose subcut USEASDIRECTD Qty: 15 3RF Rx Instructions: sliding scale with meals insulin glargine 100 unit/mL (3 mL) insulin pen 45 unit subcut QDAY Qty: 15 3RF Rx Instructions: 30UNITS QAM 15UNITS AHS (DME) pen needle, diabetic 31 gauge x 3/16 needle See Rx Instructions .ROUTE .COMPLEX Qty: 1200 0RF Dose Instruction: USE DIRECTED THREE TIMES DAILY WITH MEALS Rx Instructions: USE DIRECTED THREE TIMES DAILY WITH MEALS fluconazole 200 mg tablet See Rx Instructions .ROUTE .COMPLEX Qty: 90 0RF Dose Instruction: TAKE 1 TABLET BY MOUTH DAILY Rx Instructions: TAKE 1 TABLET BY MOUTH DAILY famotidine 20 mg tablet 20 mg PO HS Referrals: Bassem ([facility]),NEREYDA Lino [Primary Care Provider, Family Practice] Patient/Caregiver Discharge Instructions Print Language: Chinese Stand Alone Forms: Martha Award Info., Patient Portal Info Letter Quality Discharge Quality Measures none
--- NOTE | 2025-10-24 18:09 | PC.CC ---
Spoke to Waldo at [facility] TC stated that patient had been accepted by [facility], by an attending, and has been financially cleared by [employer]. They are needing facesheet, dc summary, progress notes, and H&P to be faxed to [phone] before receiving call back from bed control for bed. If we need to call back for any further questions call Bed Control at [phone] and ask for medical nurse.
[2025-10-24] MEDS: MORPHINE SULF INJ 4 MG/ML VIAL 1 MG IVP (18:32)
--- NOTE | 2025-10-24 20:14 | PC.CC ---
called [facility] and spoke to Waldo, they have received all faxed documents and just waiting on bed.
[2025-10-24] MEDS: ATORVASTATIN CALCIUM 20 MG TABLET 40 MG PO (20:57)
[2025-10-24] MEDS: TACROLIMUS 1 MG CAPSULE PO (20:57)
[2025-10-24] MEDS: MELATONIN 3 MG TABLET 6 MG PO (20:58)
[2025-10-25] VITALS (23 sets, daily range): BP systolic 120–157; BP diastolic 81–111; PULSE 93–155; RESP 11–99; TEMP 36.1–36.6; O2SAT 95–100
[2025-10-25] MEDS: CALCIUM CARBONATE 600 MG TABLET PO
[2025-10-25] MEDS: POLYETHYLENE GLYCOL 17 GM PACKET PO ×2 (03:56→15:17)
[2025-10-25] MEDS: SIMETHICONE 80 MG CHEW PO (03:56)
[2025-10-25] MEDS: SENNA/DOCUSATE SOD 1 TAB TABLET PO (03:56)
[2025-10-25 05:45] LABS: Basophils # (Auto) 0.0 Thou/mm3 (0.0-0.2); Basophils % (Auto) 0 % (0-2.5); Eosinophils # (Auto) 0.0 Thou/mm3 (0.0-0.5); Eosinophils % (Auto) 0 % (0-10); Hematocrit 39.2 % (41.0-53.0); Hemoglobin 13.6 g/dL (13.5-16.0); Immature Granulocytes Auto 0.06 Thou/mm3 (0.00-0.00); Lymphocytes # (Auto) 1.8 Thou/mm3 (1.0-4.8); Lymphocytes % (Auto) 16 % (10-50); Mean Corpuscular HGB Conc 34.7 g/dl (31.0-37.0); Mean Corpuscular Hemoglobin 25.3 pg (25.0-35.0); Mean Corpuscular Volume 73 fL (80-100); Monocytes # (Auto) 0.7 Thou/mm3 (0.0-0.8); Monocytes % (Auto) 6 % (0-12); Neutrophils # (Auto) 8.8 Thou/mm3 (1.8-7.7); Neutrophils % (Auto) 77 % (37-80); Nucleated Red Blood Cell # 0.00 Thou/mm3 (0.00-0.00); Nucleated Red Blood Cell % 0 /100 WBC (0); Platelet Count 281 Thou/mm3 (140-440); RDW Standard Deviation 37.0 fL (35.1-43.9); Red Blood Count 5.38 Miln/mm3 (4.50-5.90); White Blood Count 11.4 Thou/mm3 (3.8-10.6)
[2025-10-25 06:21] LABS: Alanine Aminotransferase 30 U/L (10-49); Albumin, Serum 3.8 gm/dL (3.5-5.0); Albumin/Globulin Ratio 1.3 (1.2-2.2); Alkaline Phosphatase 65 U/L (46-116); Anion Gap 13 (7-16); Aspartate Amino Transferase 46 U/L (0-34); BUN/Creatinine Ratio 9 Ratio (12-20); Bilirubin,Total 0.6 mg/dL (0.3-1.2); Blood Urea Nitrogen 12 mg/dL (9-23); Calcium 8.9 mg/dL (8.3-10.6); Calcium (Corrected) 9.1 mg/dL (8.5-10.1); Carbon Dioxide 22.6 mMol/L (20.0-31.0); Chloride 94 mMol/L (98-107); Creatinine (Component) 1.3 mg/dL (0.6-1.3); Estimated Creatinine Clearance 98.0 mL/min (>60); Globulin 2.9 gm/dL (2.3-3.5); Glucose 88 mg/dL (74-106); Magnesium 1.6 mg/dL (1.6-2.6); Osmolality,Calculated 259 (275-295); Phosphorous 3.3 mg/dL (2.4-5.1); Potassium 3.6 mMol/L (3.4-5.1); Sodium 130 mMol/L (136-145); Total Protein 6.7 gm/dL (5.7-8.2); eGFR > 60 See Note
[2025-10-25] MEDS: CLOPIDOGREL BISULFATE 75 MG TABLET PO (09:38)
[2025-10-25] MEDS: ASPIRIN EC 81 MG TABEC PO (09:38)
[2025-10-25] MEDS: FLUCONAZOLE 100 MG TABLET 200 MG PO (09:38)
[2025-10-25] MEDS: ESCITALOPRAM OXALATE 10 MG TABLET PO (09:38)
[2025-10-25] MEDS: FENOFIBRATE 145 MG TABLET (NON-FORMULARY) PO (09:39)
[2025-10-25] MEDS: TACROLIMUS 0.5 MG CAPSULE 1.5 MG PO (09:39)
[2025-10-25] MEDS: HEPARIN SOD INJ 5000 UNIT/ML VIAL SC ×2 (09:41→21:18)
[2025-10-25] MEDS: SIROLIMUS 0.5 MG TABLET PO (09:43)
[2025-10-25] MEDS: INSULIN DEGLUDEC 5 UNIT/0.05 ML (PER 5 UNITS) 40 UNIT SC (09:52)
--- NOTE | 2025-10-25 10:31 | ESDS_ITS ---
<Statement entered by Jean Salmeron MD - 11/03/25 08:26> I reviewed above note and agree with findings and plans. I have also personally examined the patient with medicine team and went over assessment and plan with medical team including internet sales consultant and resident physician. <Statement entered by Lilia Pedersen MD - 10/25/25 17:11> In summary: A 30-year-old male with history of cardiomyopathy s/p heart transplant, IDDM, HTN, HLD, CAD s/p PCI, CKD stage III, depression, initially admitted to ICU for DKA protocol. Subsequently was upgraded to floors for glycemic control. Symptoms overall resolved and is able to tolerate oral intake without nausea or vomiting, vitals and labs are stable. He is pending transfer to [facility] for heart biopsy which was scheduled initially outpatient, currently pending bed availability. I?ve reviewed the note and agree with this assessment and plan, with the exceptions outlined above. I personally went over the labs, imaging, home medications, and prior records, and examined the patient. The case was also reviewed with the attending physician. Please note: this document was transcribed using voice recognition technology; minor inaccuracies may be present. Lilia Pedersen DO PGY II Planned Discharge Date 10/25/25 DS: Providers Provider Date of admission: 10/22/25 15:01 Primary care physician: NEREYDA Smith Admitting Provider: Swapna Lanier MD Attending Provider on Admission: Shlomo Dela Cruz MD Consults: 10/22/25 15:03 Referral Registered Dietitian Routine Comment: 10/22/25 22:51 Referral Manny Routine Comment: Health Equity Referral - Nutrition Routine Comment: Positive screening for nutrition needs. Health Equity Referral - Transportation Routine Comment: Positive screening for transportation needs. 10/24/25 15:49 Referral - Waste Machine Tender Stat Service Needed for Transfer: Heart transplant Addl Comments:: Patient underwent heart transplant at [facility], was treated for DKA, accepted for transfer to [facility]. Please call [phone]. Attending Provider on DC: Jean Salmeron MD Discharging Provider: Sandeep Soler DO Anticipated date of discharge: 10/25/25 DS: Diagnosis Problem List Completed Was Problem List Reviewed/Reconciled?: Yes Hospital Course Hospital Course Hospital course: Planned for transfer to [facility] on night of 10/24/25, however, due to bed availability, he stayed overnight. Patient was already accepted at [facility]. Shubham Ruiz is a 30 y/o male with PMHx of cardiomyopathy (status post heart transplant at [facility] in 2000), insulin-dependent type 2 diabetes mellitus, hypertension, hyperlipidemia, CAD status post PCI, CKD stage III, depression who comes in for an evaluation after an acute onsets of nausea, dry heaving and generalized weakness onset morning of 10/22/25. He endorsed some chest pain that was generalized, however no shortness of breath at that time. He takes 45 units of Lantus at home in addition to sliding scale. He does have a harness puller Dr. Londono in [place], [place]. Patient is compliant with his medicines as prescribed, however he recently had his metformin discontinued by his physician. He has an appointment with his managing director at [facility] on the of this month. In the ED, he was found to have a white count of 18, potassium 3.0, glucose 317, anion gap 27, and lactate 7.4. beta hydroxybutyrate 5.3. Patient was given 5 units of insulin, started on 40 mill equivalents of IV potassium, morphine 4 mg x 1, and given 2 L of sodium chloride bolus, sodium phosphate x 1, Rocephin x 1. He was admitted initially to the ICU on 10/22/25 for medical management of DKA. He was downgraded to MedSurg on 10/23/25 after anion gap closed x2. Patient remained hypertensive (148/83), tachycardic (HR 102), and tachypnic (RR 35) at downgrade. Trops had downtrended. He is not eating much of his meals. His abdominal pain is reproducible to palpation and his chest discomfort is reproducible on mid- sternal palpation. On day 1 of admission, anion continued to be closed at 15. Bicarb 18.1. Blood sugar stable. He was resumed on 40U Degludec Insulin along with his home medications. At this time, patient is medically and physically stable for transfer to [facility] for his scheduled appointment with cardiology. All questions and concerns addressed, plan of care discussed with patient. Diagnosis: #DKA - resolved #Insulin Dependent Type II Diabetes mellitus, non-controlled #HAGMA without adequate compensation - resolved #Ketoacidosis - resolved #Lactic Acidosis - resolved #Leukocytosis - resolved #Tachypnea - improving #Acute kidney injury on CKD Stage III - at baseline #GERD #Chest Pain #Tropinemia - Resolved #Costochondritis #Hx of CAD #Hx of cardiomyopathy s/p heart transplant #Hx of Valley Fever Prophylaxis #Hx of Depression #Hypertension #Hyperlipidemia Discharge Plan: Transfer to [facility] Cardiology. Case discussed with my senior resident Dr. Pedersen Case discussed with my attending Dr. Faviola Soler, PGY 1 Status at Discharge Overall status at discharge: patient is back to baseline Time Spent with Patient Time attestation: Total time spent providing and/or coordinating discharge services: Time spent: Greater than 30 minutes Exam Vital Signs Temp Pulse Resp BP Pulse Ox O2 Del Method O2 Flow Rate 97.3 F 99 21 H 156/98 H 98 Nasal Cannula 1 10/25/25 04:00 10/25/25 09:38 10/25/25 04:00 10/25/25 09:38 10/25/25 04:00 10/25/25 04:00 10/25/25 04:00 Narrative Exam General: Awake and in no acute distress. A/O x 3. Tolerating Food well. Sitting comfortable at bedside. HEENT: Normocephalic, atraumatic, mucous membranes moist. Heart: Regular rate and rhythm Lungs: Clear to auscultation with no wheezing or crackles. Abdomen: Soft, nondistended, nontender. No guarding or rebound tenderness. Neurologic: Alert and oriented x3, no gross neurological deficit, and patient able to move all 4 extremities. Extremities: No pitting edema to lower extremities. Skin: No rash. No ecchymoses. Discharge Plan Plan Patient Disposition: [facility] Acute Care [facility] Facility Pt Being Transferred to: [facility] Service Needed for Transfer: Cardiology Prescriptions/Referrals Prescriptions/Med Rec: Continued aspirin 81 mg tablet,delayed release (DR/EC) 81 mg PO QDAY Qty: 90 0RF All Day Allergy (cetirizine) 10 mg capsule 10 mg PO QDAY Qty: 90 0RF fenofibrate nanocrystallized 145 mg tablet 145 mg PO DAILY Patient Comments: TAKE 1 TABLET BY MOUTH DAILY pantoprazole 40 mg tablet,delayed release (DR/EC) 40 mg PO QDAY clopidogrel 75 mg tablet 75 mg PO QDAY tacrolimus 0.5 mg capsule 2.5 mg PO QDAY Rx Instructions: 3CAP QAM 2CAP QHS sirolimus 0.5 mg tablet 1 mg PO QDAY (DME) FreeStyle Ni 2 Sensor Kit See Rx Instructions .Route Qty: 1 0RF Rx Instructions: As directed--CHANGE EVERY 14 DAYS (CHANGED 1 WEEK AGO) (DME) FreeStyle Ni 2 [place] [facility] See Rx Instructions .Route Qty: 1 0RF Rx Instructions: As directed amlodipine 5 mg tablet 5 mg PO QDAY escitalopram oxalate 10 mg tablet 10 mg PO QDAY rosuvastatin 20 mg tablet 20 mg PO QHS enalapril maleate 10 mg tablet 10 mg PO BID tramadol 50 mg tablet 50 mg PO Q12H PRN (Reason: pain) Qty: 14 0RF insulin regular human 100 unit/mL (3 mL) insulin pen 1 sliding scale dose subcut USEASDIRECTD Qty: 15 3RF Rx Instructions: sliding scale with meals insulin glargine 100 unit/mL (3 mL) insulin pen 45 unit subcut QDAY Qty: 15 3RF Rx Instructions: 30UNITS QAM 15UNITS AHS ([facility]) pen needle, diabetic 31 gauge x 3/16 needle See Rx Instructions .ROUTE .COMPLEX Qty: 1200 0RF Dose Instruction: USE DIRECTED THREE TIMES DAILY WITH MEALS Rx Instructions: USE DIRECTED THREE TIMES DAILY WITH MEALS fluconazole 200 mg tablet See Rx Instructions .ROUTE .COMPLEX Qty: 90 0RF Dose Instruction: TAKE 1 TABLET BY MOUTH DAILY Rx Instructions: TAKE 1 TABLET BY MOUTH DAILY famotidine 20 mg tablet 20 mg PO HS Referrals: Bassem ([facility]),MILKA LinoP [Primary Care Provider, Family Practice] Patient/Caregiver Discharge Instructions Print Language: Estonian Stand Alone Forms: Martha Award Info., Patient Portal Info Letter Discharge Order Discharge Orders: Discharge (Routine); Ordered 10/25/25 Ordered By: Sandeep Weih Quality Discharge Quality Measures none
[2025-10-25] MEDS: SODIUM CHLORIDE 1 GM TABLET PO (13:09)
--- NOTE | 2025-10-25 15:01 | PC.SS ---
Update: Patient pending transfer to [facility]. Awaiting bed availability.
[2025-10-25] MEDS: ACETAMINOPHEN 325 MG TABLET 650 MG PO (16:44)
--- NOTE | 2025-10-25 16:48 | PC.CC ---
Addendum entered by Dory Jimenez, RN 10/25/25 18:17: D/C summary sent to [facility] attention Cony at 1814 Original Note: Called [facility] and spoke with Lay the bed placement nurse. She informed machine sign writer that ICU is full but patient is still on the list for transfer. Cony is requesting transfer center to send d/c manuela.
[2025-10-25] MEDS: MELATONIN 3 MG TABLET 6 MG PO (21:21)
[2025-10-25] MEDS: TACROLIMUS 1 MG CAPSULE PO (21:24)
[2025-10-25] MEDS: ATORVASTATIN CALCIUM 20 MG TABLET 40 MG PO (21:25)
[2025-10-25] MEDS: INSULIN LISPRO (AdmeLOG) 1 UNIT/0.01 ML UNIT SC (21:28)
[2025-10-26] VITALS (19 sets, daily range): BP systolic 112–165; BP diastolic 73–116; PULSE 83–105; RESP 12–100; TEMP 36.2–36.8; O2SAT 92–100; BMI 28.3
[2025-10-26 05:23] LABS: Basophils # (Auto) 0.0 Thou/mm3 (0.0-0.2); Basophils % (Auto) 0 % (0-2.5); Eosinophils # (Auto) 0.0 Thou/mm3 (0.0-0.5); Eosinophils % (Auto) 0 % (0-10); Hematocrit 35.8 % (41.0-53.0); Hemoglobin 12.3 g/dL (13.5-16.0); Immature Granulocytes Auto 0.01 Thou/mm3 (0.00-0.00); Lymphocytes # (Auto) 1.8 Thou/mm3 (1.0-4.8); Lymphocytes % (Auto) 30 % (10-50); Mean Corpuscular HGB Conc 34.4 g/dl (31.0-37.0); Mean Corpuscular Hemoglobin 25.1 pg (25.0-35.0); Mean Corpuscular Volume 73 fL (80-100); Monocytes # (Auto) 0.7 Thou/mm3 (0.0-0.8); Monocytes % (Auto) 11 % (0-12); Neutrophils # (Auto) 3.5 Thou/mm3 (1.8-7.7); Neutrophils % (Auto) 58 % (37-80); Nucleated Red Blood Cell # 0.00 Thou/mm3 (0.00-0.00); Nucleated Red Blood Cell % 0 /100 WBC (0); Platelet Count 238 Thou/mm3 (140-440); RDW Standard Deviation 37.7 fL (35.1-43.9); Red Blood Count 4.90 Miln/mm3 (4.50-5.90); White Blood Count 6.0 Thou/mm3 (3.8-10.6)
[2025-10-26 05:47] LABS: Alanine Aminotransferase 20 U/L (10-49); Albumin, Serum 3.5 gm/dL (3.5-5.0); Albumin/Globulin Ratio 1.4 (1.2-2.2); Alkaline Phosphatase 56 U/L (46-116); Anion Gap 10 (7-16); Aspartate Amino Transferase 31 U/L (0-34); BUN/Creatinine Ratio 8 Ratio (12-20); Bilirubin,Total 0.5 mg/dL (0.3-1.2); Blood Urea Nitrogen 11 mg/dL (9-23); Calcium 8.3 mg/dL (8.3-10.6); Calcium (Corrected) 8.7 mg/dL (8.5-10.1); Carbon Dioxide 26.4 mMol/L (20.0-31.0); Chloride 99 mMol/L (98-107); Creatinine (Component) 1.3 mg/dL (0.6-1.3); Estimated Creatinine Clearance 98.0 mL/min (>60); Globulin 2.5 gm/dL (2.3-3.5); Glucose 172 mg/dL (74-106); Magnesium 1.5 mg/dL (1.6-2.6); Osmolality,Calculated 273 (275-295); Phosphorous 3.0 mg/dL (2.4-5.1); Potassium 4.3 mMol/L (3.4-5.1); Sodium 135 mMol/L (136-145); Total Protein 6.0 gm/dL (5.7-8.2); eGFR > 60 See Note
--- NOTE | 2025-10-26 07:16 | CHAP ---
Patient was visited by a Spiritual Care Volunteer on 10/25/2025 between 0900 and 1130 and reeived comfort, encouragement and/or prayer.
[2025-10-26] MEDS: Magnesium Sulfate 4 GM Ivpb 4 GM/50 ML BAG IV (09:34)
[2025-10-26] MEDS: ASPIRIN EC 81 MG TABEC PO (09:35)
[2025-10-26] MEDS: FLUCONAZOLE 100 MG TABLET 200 MG PO (09:35)
[2025-10-26] MEDS: CLOPIDOGREL BISULFATE 75 MG TABLET PO (09:35)
[2025-10-26] MEDS: TACROLIMUS 0.5 MG CAPSULE 1.5 MG PO (09:36)
[2025-10-26] MEDS: FENOFIBRATE 145 MG TABLET (NON-FORMULARY) PO (09:36)
[2025-10-26] MEDS: ESCITALOPRAM OXALATE 10 MG TABLET PO (09:36)
[2025-10-26] MEDS: SIROLIMUS 0.5 MG TABLET PO (09:38)
[2025-10-26] MEDS: INSULIN DEGLUDEC 5 UNIT/0.05 ML (PER 5 UNITS) 40 UNIT SC (09:39)
[2025-10-26] MEDS: HEPARIN SOD INJ 5000 UNIT/ML VIAL SC ×2 (09:39→21:17)
--- NOTE | 2025-10-26 09:52 | ESDS_ITS ---
<Statement entered by Jean Salmeron MD - 11/03/25 09:13> I reviewed above note and agree with findings and plans. I have also personally examined the patient with medicine team and went over assessment and plan with medical team including business development intern and resident physician. <Statement entered by Lilia Pedersen MD - 10/26/25 15:20> In summary: A 30-year-old male with history of cardiomyopathy s/p heart transplant, IDDM, HTN, HLD, CAD s/p PCI, CKD stage III, depression, initially admitted to ICU for DKA protocol. Subsequently was upgraded to floors for glycemic control. Symptoms overall resolved and is able to tolerate oral intake without nausea or vomiting, vitals and labs are stable. He is pending transfer to [facility] for heart biopsy which was scheduled initially outpatient, currently pending bed availability. Vitals and labs reviewed and are stable. I?ve reviewed the note and agree with this assessment and plan, with the exce ptions outlined above. I personally went over the labs, imaging, home medications, and prior records, and examined the patient. The case was also reviewed with the attending physician. Please note: this document was transcribed using voice recognition technology; minor inaccuracies may be present. Lilia Pedersen DO PGY II Planned Discharge Date 10/26/25 DS: Providers Provider Date of admission: 10/22/25 15:01 Primary care physician: NEREYDA Smith Admitting Provider: Swapna Lanier MD Attending Provider on Admission: Jean Salmeron MD Consults: 10/22/25 15:03 Referral Registered Dietitian Routine Comment: 10/22/25 22:51 Referral Manny Routine Comment: Health Equity Referral - Nutrition Routine Comment: Positive screening for nutrition needs. Health Equity Referral - Transportation Routine Comment: Positive screening for transportation needs. 10/24/25 15:49 Referral - Door To Door Fundraising Collector Stat Service Needed for Transfer: Heart transplant Addl Comments:: Patient underwent heart transplant at [facility], was treated for DKA, accepted for transfer to [facility]. Please call [phone]. Attending Provider on DC: Jean Salmeron MD Discharging Provider: Sandeep Soler DO Anticipated date of discharge: 10/26/25 DS: Diagnosis Problem List Completed Was Problem List Reviewed/Reconciled?: Yes Hospital Course Hospital Course Hospital course: 10/26/25: Still pending bed at [facility]. HYUN. 10/25/25: Planned for transfer to [facility] on night of 10/24/25, however, due to bed availability, he stayed overnight. Patient was already accepted at [facility]. Shubham Ruiz is a 30 y/o male with PMHx of cardiomyopathy (status post heart transplant at [facility] in 2000), insulin-dependent type 2 diabetes mellitus, hypertension, hyperlipidemia, CAD status post PCI, CKD stage III, depression who comes in for an evaluation after an acute onsets of nausea, dry heaving and generalized weakness onset morning of 10/22/25. He endorsed some chest pain that was generalized, however no shortness of breath at that time. He takes 45 units of Lantus at home in addition to sliding scale. He does have a rod buster helper Dr. Londono in [place], [place]. Patient is compliant with his medicines as prescribed, however he recently had his metformin discontinued by his physician. He has an appointment with his trail construction worker at [facility] on the of this month. In the ED, he was found to have a white count of 18, potassium 3.0, glucose 317, anion gap 27, and lactate 7.4. beta hydroxybutyrate 5.3. Patient was given 5 units of insulin, started on 40 mill equivalents of IV potassium, morphine 4 mg x 1, and given 2 L of sodium chloride bolus, sodium phosphate x 1, Rocephin x 1. He was admitted initially to the ICU on 10/22/25 for medical management of DKA. He was downgraded to MedSur on 10/23/25 after anion gap closed x2. Patient remained hypertensive (148/83), tachycardic (HR 102), and tachypnic (RR 35) at downgrade. Trops had downtrended. He is not eating much of his meals. His abdominal pain is reproducible to palpation and his chest discomfort is reproducible on mid- sternal palpation. On day 1 of admission, anion continued to be closed at 15. Bicarb 18.1. Blood sugar stable. He was resumed on 40U Degludec Insulin along with his home medications. At this time, patient is medically and physically stable for transfer to [facility] for his scheduled appointment with cardiology. All questions and concerns addressed, plan of care discussed with patient. Diagnosis: #DKA - resolved #Insulin Dependent Type II Diabetes mellitus, non-controlled #HAGMA without adequate compensation - resolved #Ketoacidosis - resolved #Lactic Acidosis - resolved #Leukocytosis - resolved #Tachypnea - improving #Acute kidney injury on CKD Stage III - at baseline #GERD #Chest Pain #Tropinemia - Resolved #Costochondritis #Hx of CAD #Hx of cardiomyopathy s/p heart transplant #Hx of Valley Fever Prophylaxis #Hx of Depression #Hypertension #Hyperlipidemia Discharge Plan: Transfer to [facility] Cardiology. Case discussed with my senior resident Dr. Pedersen Case discussed with my attending Dr. Faviola Soler, PGY 1 Status at Discharge Overall status at discharge: patient is back to baseline Time Spent with Patient Time attestation: Total time spent providing and/or coordinating discharge services: Time spent: Greater than 30 minutes Exam Vital Signs Temp Pulse Resp BP Pulse Ox O2 Del Method O2 Flow Rate 97.6 F 83 20 126/85 H 98 Nasal Cannula 1 10/25/25 20:02 10/26/25 07:57 10/26/25 07:57 10/26/25 05:00 10/26/25 06:00 10/25/25 04:00 10/25/25 04:00 Narrative Exam General: Awake and in no acute distress. A/O x 3. Tolerating PO well. HEENT: Normocephalic, atraumatic. Heart: Regular rate and rhythm Lungs: Clear to auscultation with no wheezing or crackles. Abdomen: Soft, nondistended, nontender. No guarding or rebound tenderness. Neurologic: Alert and oriented x3, no gross neurological deficit, and patient able to move all 4 extremities. Extremities: No pitting edema to lower extremities. Skin: No rash. No ecchymoses. Discharge Plan Plan Patient Disposition: [facility] Acute Care [facility] Facility Pt Being Transferred to: [facility] Service Needed for Transfer: Cardiology Prescriptions/Referrals Prescriptions/Med Rec: Continued aspirin 81 mg tablet,delayed release (DR/EC) 81 mg PO QDAY Qty: 90 0RF All Day Allergy (cetirizine) 10 mg capsule 10 mg PO QDAY Qty: 90 0RF fenofibrate nanocrystallized 145 mg tablet 145 mg PO DAILY Patient Comments: TAKE 1 TABLET BY MOUTH DAILY pantoprazole 40 mg tablet,delayed release (DR/EC) 40 mg PO QDAY clopidogrel 75 mg tablet 75 mg PO QDAY tacrolimus 0.5 mg capsule 2.5 mg PO QDAY Rx Instructions: 3CAP QAM 2CAP QHS sirolimus 0.5 mg tablet 1 mg PO QDAY (DME) FreeStyle Ni 2 Sensor Kit See Rx Instructions .Route Qty: 1 0RF Rx Instructions: As directed--CHANGE EVERY 14 DAYS (CHANGED 1 WEEK AGO) (DME) FreeStyle Ni 2 [place] Misc See Rx Instructions .Route Qty: 1 0RF Rx Instructions: As directed amlodipine 5 mg tablet 5 mg PO QDAY escitalopram oxalate 10 mg tablet 10 mg PO QDAY rosuvastatin 20 mg tablet 20 mg PO QHS enalapril maleate 10 mg tablet 10 mg PO BID tramadol 50 mg tablet 50 mg PO Q12H PRN (Reason: pain) Qty: 14 0RF insulin regular human 100 unit/mL (3 mL) insulin pen 1 sliding scale dose subcut USEASDIRECTD Qty: 15 3RF Rx Instructions: sliding scale with meals insulin glargine 100 unit/mL (3 mL) insulin pen 45 unit subcut QDAY Qty: 15 3RF Rx Instructions: 30UNITS QAM 15UNITS AHS (DME) pen needle, diabetic 31 gauge x 3/16 needle See Rx Instructions .ROUTE .COMPLEX Qty: 1200 0RF Dose Instruction: USE DIRECTED THREE TIMES DAILY WITH MEALS Rx Instructions: USE DIRECTED THREE TIMES DAILY WITH MEALS fluconazole 200 mg tablet See Rx Instructions .ROUTE .COMPLEX Qty: 90 0RF Dose Instruction: TAKE 1 TABLET BY MOUTH DAILY Rx Instructions: TAKE 1 TABLET BY MOUTH DAILY famotidine 20 mg tablet 20 mg PO Referrals: Bassem ([facility]),NEREYDA Lino [Primary Care Provider, Family Practice] Patient/Caregiver Discharge Instructions Print Language: Hungarian Stand Alone Forms: Martha Award Info., Patient Portal Info Letter Discharge Order Discharge Orders: Discharge (Routine); Ordered 10/25/25 Ordered By: Sandeep Soler Quality Discharge Quality Measures none
--- NOTE | 2025-10-26 10:53 | CHAP ---
Patient was sitting in a chair and feeling upbeat. We visited and prayed together.
[2025-10-26] MEDS: INSULIN LISPRO (AdmeLOG) 1 UNIT/0.01 ML UNIT SC ×3 (12:21→21:17)
[2025-10-26] MEDS: ATORVASTATIN CALCIUM 20 MG TABLET 40 MG PO (21:17)
[2025-10-26] MEDS: TACROLIMUS 1 MG CAPSULE PO (21:18)
[2025-10-26] MEDS: MELATONIN 3 MG TABLET 6 MG PO (21:18)
[2025-10-27] VITALS (10 sets, daily range): BP systolic 121–135; BP diastolic 76–83; PULSE 75–98; RESP 7–96; TEMP 36.3–36.9; O2SAT 93–100
[2025-10-27 05:38] LABS: Basophils # (Auto) 0.0 Thou/mm3 (0.0-0.2); Basophils % (Auto) 0 % (0-2.5); Eosinophils # (Auto) 0.0 Thou/mm3 (0.0-0.5); Eosinophils % (Auto) 0 % (0-10); Hematocrit 33.9 % (41.0-53.0); Hemoglobin 11.8 g/dL (13.5-16.0); Immature Granulocytes Auto 0.04 Thou/mm3 (0.00-0.00); Lymphocytes # (Auto) 2.2 Thou/mm3 (1.0-4.8); Lymphocytes % (Auto) 27 % (10-50); Mean Corpuscular HGB Conc 34.8 g/dl (31.0-37.0); Mean Corpuscular Hemoglobin 25.7 pg (25.0-35.0); Mean Corpuscular Volume 74 fL (80-100); Monocytes # (Auto) 0.9 Thou/mm3 (0.0-0.8); Monocytes % (Auto) 11 % (0-12); Neutrophils # (Auto) 5.0 Thou/mm3 (1.8-7.7); Neutrophils % (Auto) 61 % (37-80); Nucleated Red Blood Cell # 0.00 Thou/mm3 (0.00-0.00); Nucleated Red Blood Cell % 0 /100 WBC (0); Platelet Count 227 Thou/mm3 (140-440); RDW Standard Deviation 37.8 fL (35.1-43.9); Red Blood Count 4.60 Miln/mm3 (4.50-5.90); White Blood Count 8.2 Thou/mm3 (3.8-10.6)
[2025-10-27 06:23] LABS: Alanine Aminotransferase 19 U/L (10-49); Albumin, Serum 3.4 gm/dL (3.5-5.0); Albumin/Globulin Ratio 1.4 (1.2-2.2); Alkaline Phosphatase 51 U/L (46-116); Anion Gap 10 (7-16); Aspartate Amino Transferase 31 U/L (0-34); BUN/Creatinine Ratio 10 Ratio (12-20); Bilirubin,Total 0.4 mg/dL (0.3-1.2); Blood Urea Nitrogen 12 mg/dL (9-23); Calcium 8.2 mg/dL (8.3-10.6); Calcium (Corrected) 8.7 mg/dL (8.5-10.1); Carbon Dioxide 27.9 mMol/L (20.0-31.0); Chloride 100 mMol/L (98-107); Creatinine (Component) 1.2 mg/dL (0.6-1.3); Estimated Creatinine Clearance 106.4 mL/min (>60); Globulin 2.4 gm/dL (2.3-3.5); Glucose 153 mg/dL (74-106); Magnesium 1.4 mg/dL (1.6-2.6); Osmolality,Calculated 278 (275-295); Phosphorous 3.2 mg/dL (2.4-5.1); Potassium 3.8 mMol/L (3.4-5.1); Sodium 138 mMol/L (136-145); Total Protein 5.8 gm/dL (5.7-8.2); eGFR > 60 See Note
[2025-10-27] MEDS: INSULIN DEGLUDEC 5 UNIT/0.05 ML (PER 5 UNITS) 45 UNIT SC (08:08)
--- NOTE | 2025-10-27 08:39 | PC.CC ---
Addendum entered by Christa Gaytan RN 10/27/25 09:52: 0950: spoke ICU MALU Mckeon, informed him that the transfer has been canceled. Addendum entered by Christa Gaytan RN 10/27/25 09:49: 0908: received call from Ruthann lemons/ [facility], she stated she followed up with the cardio oncall Dr. Madrid. She stated pt can follow up with the cardiology clinic as an outpatient. She stated she will cancel the transfer request. I asked her to hold off until i speak to my attending. Spoke to Dr. Gloria, he stated pt is stable and agrees pt can f/u as outpatient. He stated from his stand point, transfer can be canceled Original Note: 0837: spoke to Dr. Rodríguez, informed him that [facility] will be calling Dr. Gloria for peer to peer. 0831: called [facility], spoke to Ruthann. Explained the request for peer to peer. She stated that they are at capacity and don't when a bed will be avail. She stated she will reach out the cardio oncall. Dr. Gloria contact info provided. [address] Soler asking he status of the transfer status. He stated pt originally came it for DKA and is now resolved. Transfer initiated by [facility] service mechanic when pt called to reschedule his outpatient appoint. Peer to peer is requested for the need for transfer. Team A has no attending at this time but will be covered by either Dr. Dela Cruz or Dr. Gloria.
[2025-10-27] MEDS: ESCITALOPRAM OXALATE 10 MG TABLET PO (09:21)
[2025-10-27] MEDS: HEPARIN SOD INJ 5000 UNIT/ML VIAL SC (09:21)
[2025-10-27] MEDS: CLOPIDOGREL BISULFATE 75 MG TABLET PO (09:21)
[2025-10-27] MEDS: ASPIRIN EC 81 MG TABEC PO (09:22)
[2025-10-27] MEDS: TACROLIMUS 0.5 MG CAPSULE 1.5 MG PO (09:22)
[2025-10-27] MEDS: FLUCONAZOLE 100 MG TABLET 200 MG PO (09:22)
[2025-10-27] MEDS: SIROLIMUS 0.5 MG TABLET PO (09:23)
[2025-10-27] MEDS: FENOFIBRATE 145 MG TABLET (NON-FORMULARY) PO (09:23)
--- NOTE | 2025-10-27 11:06 | ESDS_ITS ---
<Statement entered by Bentley Jimenez MD - 10/27/25 15:08> Patient was examined and case was reviewed with team including attending physician. Note reviewed, I agree with most of its contents and agree with the patient's care as documented by Dr. Karlene Jimenez MD PGY-2 Planned Discharge Date 10/27/25 DS: Providers Provider Date of admission: 10/22/25 15:01 Primary care physician: NEREYDA Smith Admitting Provider: Swapna Lanier MD Attending Provider on Admission: Jean Salmeron MD Consults: 10/22/25 15:03 Referral Registered Dietitian Routine Comment: 10/22/25 22:51 Referral [place] Routine Comment: Health Equity Referral - Nutrition Routine Comment: Positive screening for nutrition needs. Health Equity Referral - Transportation Routine Comment: Positive screening for transportation needs. 10/24/25 15:49 Referral - Flight Readiness Technician Stat Service Needed for Transfer: Heart transplant Addl Comments:: Patient underwent heart transplant at [facility], was treated for DKA, accepted for transfer to [facility]. Please call [phone]. Attending Provider on DC: Jordin Gloria MD Discharging Provider: Sandeep Soler DO Anticipated date of discharge: 10/27/25 DS: Diagnosis Problem List Completed Was Problem List Reviewed/Reconciled?: Yes Hospital Course Hospital Course Hospital course: 10/27/25: Patient had been medical stable for discharge for the past three days, but given no bed availability at [facility], he had been waiting here in ICU. Spoke with [facility] cardiology (Dr. Madrid), who is okay for discharge instead of transfer as long as patient has a scheduled appointment with them soon. Patient had a scheduled appointment for 10/31/25 @ 930AM with [facility] transplant. A call was also made to [facility] Transplant Team to confirm this appointment. At this time, patient is medically and physically stable for discharge with follow up at [facility]. 10/26/25: Still pending bed at [facility]. NAOE. 10/25/25: Planned for transfer to [facility] on night of 10/24/25, however, due to bed availability, he stayed overnight. Patient was already accepted at [facility]. Shubham Ruiz is a 30 y/o male with PMHx of cardiomyopathy (status post heart transplant at [facility] in 2000), insulin-dependent type 2 diabetes mellitus, hypertension, hyperlipidemia, CAD status post PCI, CKD stage III, depression who comes in for an evaluation after an acute onsets of nausea, dry heaving and generalized weakness onset morning of 10/22/25. He endorsed some chest pain that was generalized, however no shortness of breath at that time. He takes 45 units of Lantus at home in addition to sliding scale. He does have a online banking specialist Dr. Londono in [place], [place]. Patient is compliant with his medicines as prescribed, however he recently had his metformin discontinued by his physician. He has an appointment with his dietetics professor at [facility] on the of this month. In the ED, he was found to have a white count of 18, potassium 3.0, glucose 317, anion gap 27, and lactate 7.4. beta hydroxybutyrate 5.3. Patient was given 5 units of insulin, started on 40 mill equivalents of IV potassium, morphine 4 mg x 1, and given 2 L of sodium chloride bolus, sodium phosphate x 1, Rocephin x 1. He was admitted initially to the ICU on 10/22/25 for medical management of DKA. He was downgraded to MedSurg on 10/23/25 after anion gap closed x2. Patient remained hypertensive (148/83), tachycardic (HR 102), and tachypnic (RR 35) at downgrade. Trops had downtrended. He is not eating much of his meals. His abdominal pain is reproducible to palpation and his chest discomfort is reproducible on mid- sternal palpation. On day 1 of admission, anion continued to be closed at 15. Bicarb 18.1. Blood sugar stable. He was resumed on 40U Degludec Insulin along with his home medications. At this time, patient is medically and physically stable for transfer to [facility] for his scheduled appointment with cardiology. All questions and concerns addressed, plan of care discussed with patient. Diagnosis: #DKA - resolved #Insulin Dependent Type II Diabetes mellitus, non-controlled #HAGMA without adequate compensation - resolved #Ketoacidosis - resolved #Lactic Acidosis - resolved #Leukocytosis - resolved #Tachypnea - improving #Acute kidney injury on CKD Stage III - at baseline #GERD #Chest Pain #Tropinemia - Resolved #Costochondritis #Hx of CAD #Hx of cardiomyopathy s/p heart transplant #Hx of Valley Fever Prophylaxis #Hx of Depression #Hypertension #Hyperlipidemia Discharge Plan: * Follow-up with PCP within 1-2 weeks of discharge. * It's important that you follow-up with your doctor at [facility] for heart biopsy. * Continue taking medications as prescribed below. * Return to Emergency Room if symptoms persist, worsen, or new symptoms develop. Case discussed with my senior resident Dr. Rodríguez Case discussed with my attending Dr. Faizan Soler, PGY 1 Status at Discharge Overall status at discharge: patient is back to baseline Time Spent with Patient Time attestation: Total time spent providing and/or coordinating discharge services: Time spent: Greater than 30 minutes Exam Vital Signs Temp Pulse Resp BP Pulse Ox O2 Del Method O2 Flow Rate 97.3 F 84 23 H 135/83 H 93 L Nasal Cannula 2 10/27/25 04:00 10/27/25 09:22 10/27/25 08:00 10/27/25 09:22 10/27/25 08:00 10/26/25 16:00 10/27/25 02:00 Narrative Exam General: Awake and in no acute distress. A/O x 3. HEENT: Normocephalic, atraumatic. Heart: Regular rate and rhythm Lungs: Clear to auscultation with no wheezing or crackles. Abdomen: Soft, nondistended, nontender. No guarding or rebound tenderness. Neurologic: Alert and oriented x3, no gross neurological deficit, and patient able to move all 4 extremities. Extremities:No pitting edema in lower extremities. Skin: No rash. No ecchymoses. Discharge Plan Plan Patient Disposition: HOME (Self Care) Patient condition on transfer: Stable Care Plan Goals: * Follow-up with PCP within 1-2 weeks of discharge. * It's important that you follow-up with your doctor at [facility] for heart biopsy. * Continue taking medications as prescribed below. * Return to Emergency Room if symptoms persist, worsen, or new symptoms develop. Prescriptions/Referrals Prescriptions/Med Rec: Continued aspirin 81 mg tablet,delayed release (DR/EC) 81 mg PO QDAY Qty: 90 0RF All Day Allergy (cetirizine) 10 mg capsule 10 mg PO QDAY Qty: 90 0RF fenofibrate nanocrystallized 145 mg tablet 145 mg PO DAILY Patient Comments: TAKE 1 TABLET BY MOUTH DAILY pantoprazole 40 mg tablet,delayed release (DR/EC) 40 mg PO QDAY clopidogrel 75 mg tablet 75 mg PO QDAY tacrolimus 0.5 mg capsule 2.5 mg PO QDAY Rx Instructions: 3CAP QAM 2CAP QHS sirolimus 0.5 mg tablet 1 mg PO QDAY (DME) FreeStyle Ni 2 Sensor Kit See Rx Instructions .Route Qty: 1 0RF Rx Instructions: As directed--CHANGE EVERY 14 DAYS (CHANGED 1 WEEK AGO) (DME) FreeStyle Ni 2 [place] Misc See Rx Instructions .Route Qty: 1 0RF Rx Instructions: As directed amlodipine 5 mg tablet 5 mg PO QDAY escitalopram oxalate 10 mg tablet 10 mg PO QDAY rosuvastatin 20 mg tablet 20 mg PO QHS enalapril maleate 10 mg tablet 10 mg PO BID tramadol 50 mg tablet 50 mg PO Q12H PRN (Reason: pain) Qty: 14 0RF insulin regular human 100 unit/mL (3 mL) insulin pen 1 sliding scale dose subcut USEASDIRECTD Qty: 15 3RF Rx Instructions: sliding scale with meals insulin glargine 100 unit/mL (3 mL) insulin pen 45 unit subcut QDAY Qty: 15 3RF Rx Instructions: 30UNITS QAM 15UNITS AHS (DME) pen needle, diabetic 31 gauge x 3/16 needle See Rx Instructions .ROUTE .COMPLEX Qty: 1200 0RF Dose Instruction: USE DIRECTED THREE TIMES DAILY WITH MEALS Rx Instructions: USE DIRECTED THREE TIMES DAILY WITH MEALS fluconazole 200 mg tablet See Rx Instructions .ROUTE .COMPLEX Qty: 90 0RF Dose Instruction: TAKE 1 TABLET BY MOUTH DAILY Rx Instructions: TAKE 1 TABLET BY MOUTH DAILY famotidine 20 mg tablet 20 mg PO HS Referrals: Bassem ([facility]),NEREYDA Lino [Primary Care Provider, Family Practice] Patient/Caregiver Discharge Instructions Print Language: Burkinan Stand Alone Forms: Martha Award Info., Patient Portal Info Letter Discharge Order Discharge Orders: Discharge (Routine); Ordered 10/27/25 Ordered By: Lilia Pedersen Quality Discharge Quality Measures none Attestestation MD Attestation I have examined the patient, reviewed labs and imaging findings, discussed the case with the resident(s), and reviewed entered orders. I agree with the plan of care as outlined in this note. Time Spent: [address] Faizan MD
[2025-10-27] MEDS: INSULIN LISPRO (AdmeLOG) 1 UNIT/0.01 ML UNIT SC (12:11)
== END 2025-10-27 15:10 | disposition home or self-care (01) | DRG 420 ==
LOC: SERX 12:33 → SERHOLD 15:10 → S2SX 22:25
PROVIDERS: Student in an Organized Health Care Education/Training Program; Admitting Provider Internal Medicine; Emergency Provider Emergency Medicine; PCP Nurse Practitioner Primary Care; Visit Provider Internal Medicine
DX: E11.10 Type 2 diabetes mellitus with ketoacidosis without coma (principal); E11.22 Type 2 diabetes mellitus with diabetic chronic kidney disease; D72.829 Elevated white blood cell count, unspecified; K21.9 Gastro-esophageal reflux disease without esophagitis; M94.0 Chondrocostal junction syndrome [Tietze]; I25.10 Atherosclerotic heart disease of native coronary artery without angina pectoris; N18.30 Chronic kidney disease, stage 3 unspecified; I12.9 Hypertensive chronic kidney disease with stage 1 through stage 4 chronic kidney disease, or unspecified chronic kidney disease; E78.5 Hyperlipidemia, unspecified; I48.91 Unspecified atrial fibrillation; N17.9 Acute kidney failure, unspecified; Z79.02 Long term (current) use of antithrombotics/antiplatelets; Z79.4 Long term (current) use of insulin; Z79.82 Long term (current) use of aspirin; Z79.84 Long term (current) use of oral hypoglycemic drugs; Z79.899 Other long term (current) drug therapy; Z95.5 Presence of coronary angioplasty implant and graft
CPT/HCPCS: 36415; 36600; 71045; 74018; 74176; 80053; 80069; 80307; 80320; 81001; 82010; 82803; 83036; 83540; 83550; 83605; 83690; 83735; 83880; 84100; 84145; 84443; 84484; 85025; 85610; 85730; 87040; 87081; 87502; 87635; 93005; 96361; 96365; 96366; 96375; 99285; J0696; J1644; J1815; J2270; J2405; J2470; J3475; J3480; J3490; J7030; J7050; J7120; J7121; J7507; A9270; G0480